=== PATIENT | female | born 1980 | race Two or more races ===

== ENCOUNTER → 2020-06-06 15:11 | Outpatient (BNVA) | payer MEDICAID, SELFPAY | PROVIDERS: PCP Nurse Practitioner Family; Referring Provider Nurse Practitioner Family; Visit Provider Nurse Practitioner | DX: Z76.89 Persons encountering health services in other specified circumstances (principal) ==

== ENCOUNTER → 2020-07-04 15:04 | Outpatient (BNVA) | payer MEDICAID, SELFPAY | PROVIDERS: PCP Nurse Practitioner Family; Referring Provider Nurse Practitioner Family; Visit Provider Nurse Practitioner | DX: Z76.89 Persons encountering health services in other specified circumstances (principal) ==

== ENCOUNTER 2020-09-12 21:25 | Emergency (ER) | payer MEDICAID, SELFPAY ==
--- NOTE | ~2020-09-12 | XR_ITS ---
EXAMINATION: XR CHEST CLINICAL INFORMATION: Chest pain COMPARISON: 07/08/2019 TECHNIQUE: Frontal view of the chest was obtained. FINDINGS: Patient is status post median sternotomy with a prosthetic valve in place. No other significant abnormality is noted involving the heart, lungs, mediastinum, bony thorax or soft tissues. XR/XR chest 1V IMPRESSION: No acute intrathoracic disease.
--- NOTE | 2020-09-12 21:40 | ECG_ITS ---
Test Reason : CHEST PAIN Blood Pressure : / mmHG Vent. Rate : 077 BPM Atrial Rate : 077 BPM P-R Int : 136 ms QRS Dur : 074 ms QT Int : 402 ms P-R-T Axes : 084 008 033 degrees QTc Int : 454 ms Normal sinus rhythm Septal infarct , age undetermined Abnormal ECG When compared with ECG of 08-JUL-2019 22:31, No significant change was found Referred By: Generic ED Physician Electronically Signed By:Jose Corral
[2020-09-12 22:22] VITALS: BP 115/71; PULSE 69; RESP 18; TEMP 36.9; O2SAT 99; BMI 33.3
--- NOTE | 2020-09-12 23:55 | ED.CHESTPAIN ---
HPI - Chest Pain General Chief Complaint: Chest Pain Stated Complaint: Chest pain/SOB Time Seen by Provider: 09/12/20 23:55 Source: patient Mode of arrival: ambulatory History of Present Illness HPI narrative: This is a 39-year-old female with history of mechanical valve replacement due to ?damage? and last INR on Coumadin was taken on Thursday and as per patient was 2.5. She is coming in with chest pain for 2 days that she describes as squeezing, nonradiating, worse at night when she tries to lay down to sleep and is not associated with fevers, chills, shortness of breath, dizziness, GI symptoms. Patient also describes lower extremity weakness without lower back pain but otherwise denies urinary pain/burning/frequency. Related Data Home Medications Medication Instructions Recorded Confirmed albuterol sulfate 90 mcg/actuation 1 inh INHALATION Q4H 06/06/20 06/06/20 breath activated powder inhaler,sensor aspirin 81 mg tablet,delayed 81 mg PO DAILY 06/06/20 06/06/20 release fluticasone propionate 220 1 puff INHALATION BID 06/06/20 06/06/20 mcg/actuation HFA aerosol inhaler loratadine 10 mg capsule 10 mg PO DAILY 06/06/20 06/06/20 tramadol 50 mg tablet 50 mg PO TID PRN 06/06/20 06/06/20 warfarin 5 mg tablet 5 mg PO DAILY 06/06/20 06/06/20 Previous Rx's Medication Instructions Recorded dicyclomine 10 mg capsule 10 mg PO QID #120 cap 06/06/20 methylcellulose (laxative) 500 mg 1,000 mg PO DAILY #60 tab 06/06/20 tablet omeprazole 40 mg capsule,delayed 40 mg PO BID 30 Days #60 cap 07/04/20 release linaclotide 290 mcg capsule 290 mcg PO QAM #30 cap 08/09/20 Allergies Allergy/AdvReac Type Severity Reaction Status Date / Time No Known Allergies Allergy Verified 09/12/20 22:22 [No Known Allergies*] Review of Systems Review of Systems: Pertinent positives and negatives as stated in HPI 10 point review of systems is otherwise negative. PMFSH Past Medical History Source: nursing notes reviewed Surgical History H/O heart surgery History of colonoscopy Mechanical heart valve present Family History Family History Father No problems noted. Mother No problems noted. Social History Social History Alcohol intake: never Smoking Status: Current every day smoker Tobacco Type: Cigarette Cigarettes Per Day: 4 Advance Directives: No Advance Directives Information Provided: No Physical Exam Vital Signs: Vital Signs: Last Vital Signs Temp 99.0 F 09/13/20 00:00 Pulse 66 09/13/20 00:00 Resp 16 09/13/20 00:00 BP 112/77 09/13/20 00:00 Pulse Ox 99 09/13/20 00:00 Body Mass Index 33.3 VITAL SIGNS: Reviewed. GENERAL: Well developed, well nourished, in no acute distress. HEAD: Normocephalic/atraumatic, EYES: PERRLA, EOMI NOSE: Nares patent bilateral OROPHARYNX: no oral lesions noted, posterior pharynx clear NECK: Supple, no adenopathy LUNGS: Normal breath sounds. No adventitious sounds or accessory muscle use. SpO2<99> CARDIOVASCULAR: Regular rate and rhythm, mechanical valve noted on auscultation, no JVD or lower extremity edema. ABDOMEN: Soft, non-tender, non-distended with bowel sounds. NEUROLOGIC: Alert and oriented x 4. Course Course Course Narrative: This is a 39-year-old female with history and clinical presentation most consistent with acid reflux/GERD, but due to patient's history will rule out cardiopulmonary, pancreatitis. Review of all investigations to include labs and chest x-ray without acute findings to better explain patient's presentation other than suspected exacerbation of underlying acid reflux. Patient was provided with a GI cocktail and on re-evaluation reports symptom improvement. She was discharged home in stable condition. MDM - Chest Pain Lab Data Result diagrams: 09/13/20 00:23 09/13/20 00:23 Labs: Lab Results 09/13/20 09/13/20 09/13/20 Range/Units 00:23 00:23 00:23 WBC 12.5 H (4.8-10.8) X10*3/uL RBC 4.35 (4.20-5.50) X10*6/uL Hgb 12.9 (12.0-16.0) g/dl Hct 38.6 (37-47) % MCV 88.7 (80-98) fL MCH 29.7 (27.0-33.0) pg MCHC 33.4 (31.0-35.0) g/dl RDW 13.1 (11.0-16.0) % Plt Count 223 (160-400) X10*3/uL MPV 11.2 (9.4-12.3) fL Immature Gran % (Auto) 0.2 (0.0-0.4) % Neut % (Auto) 61.6 (45-73) % Lymph % (Auto) 30.1 (20-40) % [place] % (Auto) 5.9 (2-11) % Eos % (Auto) 1.6 (0-4) % Baso % (Auto) 0.6 (0-2) % Lymph # (Auto) 3.8 (1.2-4.9) X10*3/uL [place] # (Auto) 0.7 (0.1-1.2) X10*3/uL Eos # (Auto) 0.2 (0.0-0.4) X10*3/uL Baso # (Auto) 0.1 (0.0-0.2) X10*3/uL Abs Immat Gran (auto) 0.02 (0.00-0.03) X10*3/uL Absolute Neuts (auto) 7.7 (2.0-8.3) X10*3/uL Absolute Nucleated RBC 0.000 (0.0-0.012) X10*3/uL Nucleated RBC % (auto) 0.0 (0.0-0.2) /100WBC PT 32.1 H (10.8-13.0) SEC INR 2.7 H (0.9-1.1) Hold Blue Top SEE NOTE Sodium 138 (135-145) mmol/L Potassium 3.9 (3.3-5.1) mmol/L Chloride 112 H (96-108) mmol/L Carbon Dioxide 20 L (22-29) mmol/L Anion Gap 10 L (12-20) BUN 12 (9-16) mg/dL Creatinine 0.79 (0.5-1.4) mg/dL Estim Creat Clear Calc 104.2 Estimated GFR > 60 Random Glucose 103 (60-115) mg/dL Calcium 8.9 (8.4-10.2) mg/dL Troponin I High Sens (<3.5-17.0) ng/L 09/13/20 Range/Units 00:23 WBC (4.8-10.8) X10*3/uL RBC (4.20-5.50) X10*6/uL Hgb (12.0-16.0) g/dl Hct (37-47) % MCV (80-98) fL MCH (27.0-33.0) pg MCHC (31.0-35.0) g/dl RDW (11.0-16.0) % Plt Count (160-400) X10*3/uL MPV (9.4-12.3) fL Immature Gran % (Auto) (0.0-0.4) % Neut % (Auto) (45-73) % Lymph % (Auto) (20-40) % [place] % (Auto) (2-11) % Eos % (Auto) (0-4) % Baso % (Auto) (0-2) % Lymph # (Auto) (1.2-4.9) X10*3/uL [place] # (Auto) (0.1-1.2) X10*3/uL Eos # (Auto) (0.0-0.4) X10*3/uL Baso # (Auto) (0.0-0.2) X10*3/uL Abs Immat Gran (auto) (0.00-0.03) X10*3/uL Absolute Neuts (auto) (2.0-8.3) X10*3/uL Absolute Nucleated RBC (0.0-0.012) X10*3/uL Nucleated RBC % (auto) (0.0-0.2) /100WBC PT (10.8-13.0) SEC INR (0.9-1.1) Hold Blue Top Sodium (135-145) mmol/L Potassium (3.3-5.1) mmol/L Chloride (96-108) mmol/L Carbon Dioxide (22-29) mmol/L Anion Gap (12-20) BUN (9-16) mg/dL Creatinine (0.5-1.4) mg/dL Estim Creat Clear Calc Estimated GFR Random Glucose (60-115) mg/dL Calcium (8.4-10.2) mg/dL Troponin I High Sens < 3.5 (<3.5-17.0) ng/L ECG Data ECG #1: Attestation: I personally reviewed and interpreted this ECG as follows: Prior ECG tracings: available for review (07/08/2019 no acute changes on comparison) Interpretation: Normal sinus rhythm, HR-77, no evidence of acute ischemia, AL/QRS/QTC are within normal limits. Discharge Plan Discharge Clinical Impression: Atypical chest pain GERD (gastroesophageal reflux disease) Qualifiers: Esophagitis presence: without esophagitis Qualified Code(s): K21.9 - Gastro-esophageal reflux disease without esophagitis Patient Disposition: Home, Self-Care Instructions: Chest Pain (ED), Diet for Stomach Ulcers and Gastritis (ED), Gastroesophageal Reflux Disease (ED) Additional Instructions: 1. Please resume all home medications as prescribed. 2. Please follow recommendations for GERD, especially timing after last meal and laying down for bed. 3. 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 Do not hesitate to return to the emergency department should you experience any acute worsening of your symptoms. Prescriptions: No Action linaclotide [Linzess] 290 mcg capsule 290 mcg PO QAM Qty: 30 RF: 0 loratadine [Claritin Liqui-Gel] 10 mg capsule 10 mg PO DAILY RF: 0 Flovent HFA 220 mcg/actuation HFA aerosol inhaler 1 puff inhalation BID RF: 0 Proair Digihaler 90 mcg/actuation aero powdr breath act w/sensor 1 inh inhalation Q4H RF: 0 tramadol 50 mg tablet 50 mg PO TID PRNRF: 0 warfarin 5 mg tablet 5 mg PO DAILY RF: 0 aspirin [Adult Aspirin Regimen] 81 mg tablet,delayed release (DR/EC) 81 mg PO DAILY RF: 0 Citrucel 500 mg tablet 1,000 mg PO DAILY Qty: 60 RF: 3 dicyclomine 10 mg capsule 10 mg PO QID Qty: 120 RF: 3 omeprazole 40 mg capsule,delayed release(DR/EC) 40 mg PO BID 30 Days Qty: 60 RF: 3 Referrals: [facility] [Outside] - 2 days (Re-evaluation for atypical chest pain and suspect poorly controlled GERD)
[2020-09-13] VITALS: BP 112/77; PULSE 66; RESP 16; TEMP 37.2; O2SAT 99
[2020-09-13 00:29] LABS: MANUAL DIFF FLAG NO
[2020-09-13 00:30] LABS: Basophils Absolute Auto 0.1 X10*3/uL (0.0-0.2); Basophils Percent Auto 0.6 % (0-2); Eosinophils Absolute Auto 0.2 X10*3/uL (0.0-0.4); Eosinophils Percent Auto 1.6 % (0-4); Hematocrit 38.6 % (37-47); Hemoglobin 12.9 g/dl (12.0-16.0); Imm Gran Abs Auto 0.02 X10*3/uL (0.00-0.03); Imm Gran Pct Auto 0.2 % (0.0-0.4); Lymphocytes Absolute Auto 3.8 X10*3/uL (1.2-4.9); Lymphocytes Percent Auto 30.1 % (20-40); Mean Corpuscular HGB Conc 33.4 g/dl (31.0-35.0); Mean Corpuscular Hemoglobin 29.7 pg (27.0-33.0); Mean Corpuscular Volume 88.7 fL (80-98); Mean Platelet Volume 11.2 fL (9.4-12.3); Monocytes Absolute Auto 0.7 X10*3/uL (0.1-1.2); Monocytes Percent Auto 5.9 % (2-11); Neutrophils Absolute Auto 7.7 X10*3/uL (2.0-8.3); Neutrophils Percent Auto 61.6 % (45-73); Platelet Count 223 X10*3/uL (160-400); Red Blood Count 4.35 X10*6/uL (4.20-5.50); Red Cell Distribution Width 13.1 % (11.0-16.0); White Blood Count 12.5 X10*3/uL (4.8-10.8)
[2020-09-13 00:36] LABS: INTERNATIONAL NORM RATIO 2.7 (0.9-1.1); Prothrombin Time 32.1 SEC (10.8-13.0)
[2020-09-13 00:55] LABS: Anion Gap 10 (12-20); Blood Urea Nitrogen 12 mg/dL (9-16); Calcium 8.9 mg/dL (8.4-10.2); Carbon Dioxide 20 mmol/L (22-29); Chloride 112 mmol/L (96-108); Creatinine Clr Calc Pharmacy 104.2; Estimated Glomerular Filt Rate > 60; Glucose Random 103 mg/dL (60-115); Potassium 3.9 mmol/L (3.3-5.1); Sodium 138 mmol/L (135-145)
[2020-09-13 01:03] LABS: Troponin-I High Sensitivity < 3.5 ng/L (<3.5-17.0)
[2020-09-13] MEDS: Lidocaine HCl Viscous 2 % 15 ML SOLUTION 10 ML MUCOUS MEM (02:05)
[2020-09-13] MEDS: Magnesium Hydrox/Alum Hydrox 30 ML ORAL.SUSP PO (02:06)
== END 2020-09-13 02:14 | disposition home or self-care (01) ==
PROVIDERS: Emergency Provider Student in an Organized Health Care Education/Training Program
DX: R07.89 Other chest pain (principal); K21.9 Gastro-esophageal reflux disease without esophagitis; Z79.01 Long term (current) use of anticoagulants; Z95.2 Presence of prosthetic heart valve; Z79.82 Long term (current) use of aspirin
CPT/HCPCS: 36415; 71045; 80048; 84484; 85025; 85610; 93005; 99283

== ENCOUNTER 2020-10-03 13:10 | Outpatient (REF) | payer MEDICAID, SELFPAY ==
--- NOTE | ~2020-10-03 | MM_ITS ---
EXAMINATION: MM DIAGNOSTIC DIGITAL BREAST TOMOSYNTHESIS, BILATERAL US TARGETED BREAST, BILATERAL CLINICAL INFORMATION: Bilateral breast pain. The lifetime risk of breast cancer based on the Tyrer-Cuzick Model is 8.1%. COMPARISON: Mammography: None. TECHNIQUE: Digital breast tomosynthesis is performed in both the craniocaudal and mediolateral oblique views along with computer-aided detection (CAD). Synthesized 2D images are generated from the tomosynthesis. Bilateral targeted breast ultrasound. FINDINGS: The breasts are heterogeneously dense, which may obscure small masses (ACR BI-RADS breast composition Category c). About the lateral aspect of the right breast, approximately 6 cm from the nipple, there is a circumscribed 3 mm density present. No other dominant mass or suspicious grouping of microcalcifications identified. No abnormal dominant mass or suspicious grouping of microcalcifications is seen within the left breast. TARGETED LEFT BREAST ULTRASOUND: In the region of the patient's pain at the 9 o'clock position, there is a complex cyst versus lymph node with small amount of blood flow in a hyperechoic region centrally which may represent hilum. Lesion is wider than it is tall. There is increased through sound transmission and no distal sound shadowing. The lesion measures approximately 1.0 x 0.3 x 1.0 cm in size. Targeted right breast ultrasound demonstrated a 4 x 3 x 4 mm simple-appearing cyst, 9 o'clock position, 8 cm from the nipple. Results are provided to the patient at time of visit by the technologist. MM/MM tomosynthesis diagnostic BI IMPRESSION: 1. No specific mammographic or ultrasound findings to suggest malignancy. 2. Either a complex cyst or intramammary lymph node in the region of pain at 9 o'clock position, 6 cm from the nipple. ASSESSMENT: BI-RADS 3: Probably Benign. RECOMMENDATION: Diagnostic ultrasound in 6 months. This patient's information was entered into a reminder system with a target due date for their next mammogram.
--- NOTE | ~2020-10-03 | US_ITS ---
EXAMINATION: US DIAGNOSTIC ULTRASOUND BREAST, RIGHT CLINICAL INFORMATION: Pain. COMPARISON: Mammography of same day. TECHNIQUE: Ultrasound of the breast is performed with real-time solomon scale imaging and color Doppler. FINDINGS: Targeted left breast ultrasound in region of patient's pain at the 9:00 position there is a complex cyst versus lymph node with small amount of blood flow in a hyperechoic region centrally which may represent hilum Lesion is wider than it is tall. There is increased through sound transmission and no distal sound shadowing. The lesion measures approximately 1.0 x 0.3 x 1.0 cm in size. Targeted right breast ultrasound demonstrated a 4 x 3 x 4 mm simple appearing cyst 9:00 position 8 cm from nipple. Results are provided to the patient at time of visit by the technologist. US/US breast RT limited IMPRESSION: No specific mammographic or ultrasound findings to suggest malignancy. Either complex cyst or intramammary lymph node in the region of pain 9:00 position 6 cm from the nipple. ASSESSMENT: BI-RADS 3: Probably Benign RECOMMENDATION: Diagnostic ultrasound in 6 months.
--- NOTE | ~2020-10-03 | US_ITS ---
EXAMINATION: US DIAGNOSTIC ULTRASOUND BREAST, LEFT CLINICAL INFORMATION: Left breast pain. COMPARISON: Mammography of same day. TECHNIQUE: Ultrasound of the breast is performed with real-time solomon scale imaging and color Doppler. FINDINGS: Targeted left breast ultrasound in region of patient's pain at the 9:00 position there is a complex cyst versus lymph node with small amount of blood flow in a hyperechoic region centrally which may represent hilum Lesion is wider than it is tall. There is increased through sound transmission and no distal sound shadowing. The lesion measures approximately 1.0 x 0.3 x 1.0 cm in size. Targeted right breast ultrasound demonstrated a 4 x 3 x 4 mm simple appearing cyst 9:00 position 8 cm from nipple. Results are provided to the patient at time of visit by the technologist. US/US breast LT limited IMPRESSION: No specific mammographic or ultrasound findings to suggest malignancy. Either complex cyst or intramammary lymph node in the region of pain 9:00 position 6 cm from the nipple. ASSESSMENT: BI-RADS 3: Probably Benign RECOMMENDATION: Diagnostic ultrasound in 6 months.
== END 2020-10-03 13:11 | disposition home or self-care (01) ==
LOC: HO.MAMMO 13:10
PROVIDERS: Visit Provider Nurse Practitioner Family
DX: N64.4 Mastodynia (principal)
CPT/HCPCS: 76642; 77062; 77066

== ENCOUNTER → 2020-10-18 14:21 | Outpatient (BNVA) | payer MEDICAID, SELFPAY | PROVIDERS: Visit Provider Nurse Practitioner ==

== ENCOUNTER → 2020-11-08 10:59 | Outpatient (BNVA) | payer MEDICAID, SELFPAY | PROVIDERS: Visit Provider Nurse Practitioner ==

== ENCOUNTER 2021-04-05 08:58 | Outpatient (REF) | payer MEDICAID, SELFPAY ==
--- NOTE | ~2021-04-05 | US_ITS ---
EXAMINATION: US DIAGNOSTIC ULTRASOUND BREAST, RIGHT CLINICAL INFORMATION: Short interval six-month follow-up probable benign clustered microcyst medial left breast. TC score 8%. COMPARISON: Mammography 10/03/2020, ultrasound left breast 10/03/2020. TECHNIQUE: Ultrasound left breast is targeted to the inner quadrant. Grayscale imaging and color Doppler are performed without and with harmonics. FINDINGS: The small complicated cyst/clustered microcyst 9:00 position 6 cm from nipple is slightly decreased in size. Prior measurement is 10 x 10 x 3 mm and current measurement is 9 x 7 x 3 mm. Margins are circumscribed. There is increased through-transmission of sound. Linear stranding central epicenter is decreased. There is no peripheral or internal color flow. Results are discussed with the patient at time of visit. US/US breast LT limited IMPRESSION: Benign complicated cyst/clustered microcyst slightly decreased. No color flow. ASSESSMENT: BI-RADS 2: Benign RECOMMENDATION: Routine annual mammography screening. This patient's information was entered into a reminder system with a target due date for their next mammogram.
== END 2021-04-05 08:59 | disposition home or self-care (01) ==
LOC: HO.MAMMO 08:58
PROVIDERS: Visit Provider Nurse Practitioner Family
DX: N60.02 Solitary cyst of left breast (principal)
CPT/HCPCS: 76642

== ENCOUNTER 2021-10-04 09:13 | Outpatient (REF) | payer MEDICAID, SELFPAY ==
--- NOTE | ~2021-10-04 | MM_ITS ---
EXAMINATION: MM SCREENING DIGITAL BREAST TOMOSYNTHESIS, BILATERAL CLINICAL INFORMATION: Screening. Asymptomatic. The lifetime risk of breast cancer based on the Tyrer-Cuzick Model is 7%. COMPARISON: Mammography: 10/03/2020 (baseline); ultrasound left breast 04/05/2021, ultrasound bilateral breasts 10/03/2020. TECHNIQUE: Digital breast tomosynthesis is performed in both the craniocaudal and mediolateral oblique views along with computer-aided detection (CAD). Synthesized 2D images are generated from the tomosynthesis. FINDINGS: There are scattered areas of fibroglandular density (ACR BI-RADS breast composition Category b). There are no significant masses, abnormal calcifications, or other abnormalities. Breast tissue composition borders on heterogeneously dense. Parenchymal pattern is similar to baseline exam. MM/MM tomosynthesis screening BI IMPRESSION: No mammographic evidence of malignancy. ASSESSMENT: BI-RADS 1: Negative RECOMMENDATION: Routine annual mammography screening. This patient's information was entered into a reminder system with a target due date for their next mammogram.
== END 2021-10-04 09:14 | disposition home or self-care (01) ==
LOC: HO.MAMMO 09:13
PROVIDERS: Visit Provider Nurse Practitioner Family
DX: Z12.31 Encounter for screening mammogram for malignant neoplasm of breast (principal)
CPT/HCPCS: 77063; 77067

== ENCOUNTER 2021-12-18 09:32 | Outpatient (REF) | payer MEDICAID, SELFPAY ==
--- NOTE | 2021-12-18 09:37 | EMG_ITS ---
HISTORY OF PRESENT ILLNESS: This is a 41-year-old woman who had a stroke with left-sided hemiplegia in 2019 and has recovered fairly well and now comes in with left lower extremity cramping and numbness at times. PHYSICAL EXAMINATION: She is alert, oriented with normal intellectual functions. Cranial nerves II through XII are normal. Muscle tone and strength are normal in all 4 extremities. Slight left-sided hyperreflexia. IMPRESSION: Stroke, rule out peripheral neuropathy. Nerve conduction EMG study: Normal electrodiagnostic study of the left lower extremity with no evidence of nerve entrapment or generalized peripheral neuropathy. Normal EMG of the left L4-S1 innervated muscles. MD GERA Donohue/TOSIN / [id number]
== END 2021-12-18 09:33 | disposition home or self-care (01) ==
LOC: HO.NEURO 09:32
PROVIDERS: PCP Nurse Practitioner Primary Care; Visit Provider Nurse Practitioner Primary Care
DX: R20.0 Anesthesia of skin (principal)
CPT/HCPCS: 95885; 95909

== ENCOUNTER → 2022-03-07 15:54 | Outpatient (BNVA) | payer MEDICAID, SELFPAY | PROVIDERS: PCP Nurse Practitioner Primary Care; Visit Provider Nurse Practitioner | DX: K59.04 Chronic idiopathic constipation (principal); R14.0 Abdominal distension (gaseous); K21.9 Gastro-esophageal reflux disease without esophagitis; K58.2 Mixed irritable bowel syndrome; Z79.899 Other long term (current) drug therapy | CPT/HCPCS: 99212 ==

== ENCOUNTER → 2022-03-31 12:56 | Outpatient (BNVA) | payer MEDICAID, SELFPAY | PROVIDERS: PCP Nurse Practitioner Primary Care; Visit Provider Advanced Practice Midwife | DX: R14.0 Abdominal distension (gaseous) (principal); Z87.42 Personal history of other diseases of the female genital tract; Z95.2 Presence of prosthetic heart valve | CPT/HCPCS: 99202 ==

== ENCOUNTER 2022-04-15 12:50 | Outpatient (REF) | payer MEDICAID, SELFPAY ==
[2022-04-22 11:42] LABS: HPV mRNA E6/E7 rflx Not Detected (Not Detected)
== END 2022-04-15 12:51 | disposition home or self-care (01) ==
LOC: HO.LNP 12:50
PROVIDERS: Visit Provider Obstetrics & Gynecology
DX: N93.9 Abnormal uterine and vaginal bleeding, unspecified (principal); N83.8 Other noninflammatory disorders of ovary, fallopian tube and broad ligament
CPT/HCPCS: 84443; 84702; 85027; 86304; 87491; 87591; 87624; 88142; 99212

== ENCOUNTER 2022-04-15 13:00 | Outpatient (REF) | payer MEDICAID, SELFPAY ==
[2022-04-15 14:34] LABS: Hematocrit 39.1 % (37.0-47.0); Hemoglobin 13.2 g/dl (12.0-16.0); Mean Corpuscular HGB Conc 33.8 g/dl (31.0-35.0); Mean Corpuscular Hemoglobin 29.6 pg (27.0-33.0); Mean Corpuscular Volume 87.7 fL (80.0-98.0); Mean Platelet Volume 12.1 fL (9.4-12.3); Platelet Count 202 X10*3/uL (160-400); Red Blood Count 4.46 X10*6/uL (4.20-5.50); Red Cell Distribution Width 13.5 % (11.0-16.0)
[2022-04-15 15:12] LABS: HCG Quantitative < 2 mIU/mL; TSH reflex Free T4 0.99 uIU/mL (0.32-4.0)
[2022-04-15 18:17] LABS: CT PCR NOT DETECTED (Not Detect.); NG PCR NOT DETECTED (Not Detect.)
[2022-04-18 10:27] LABS: CA-125 6 U/mL (<35)
== END 2022-04-15 13:01 | disposition home or self-care (01) ==
LOC: HO.LAB 13:00
PROVIDERS: PCP Nurse Practitioner Primary Care; Visit Provider Obstetrics & Gynecology
DX: N83.8 Other noninflammatory disorders of ovary, fallopian tube and broad ligament (principal); N93.9 Abnormal uterine and vaginal bleeding, unspecified
CPT/HCPCS: 84443; 84702; 85027; 86304; 87491; 87591

== ENCOUNTER → 2022-04-23 16:05 | Outpatient (BNVA) | payer MEDICAID, SELFPAY | PROVIDERS: PCP Nurse Practitioner Primary Care; Visit Provider Nurse Practitioner | DX: K59.04 Chronic idiopathic constipation (principal); K21.9 Gastro-esophageal reflux disease without esophagitis; R14.0 Abdominal distension (gaseous); Z90.49 Acquired absence of other specified parts of digestive tract; Z95.2 Presence of prosthetic heart valve | CPT/HCPCS: 99212 ==

== ENCOUNTER 2022-06-27 13:25 | Outpatient (REF) | payer MEDICAID, SELFPAY | END 2022-06-27 13:26 | disposition home or self-care (01) | LOC: HO.US 13:25 | PROVIDERS: Visit Provider Obstetrics & Gynecology | DX: N93.9 Abnormal uterine and vaginal bleeding, unspecified (principal) | CPT/HCPCS: 76830; 76856 ==

== ENCOUNTER → 2022-10-02 15:47 | Outpatient (BNVA) | payer MEDICAID, SELFPAY | PROVIDERS: PCP Nurse Practitioner Primary Care; Visit Provider Nurse Practitioner | DX: K29.60 Other gastritis without bleeding (principal); K59.04 Chronic idiopathic constipation; K21.9 Gastro-esophageal reflux disease without esophagitis; R14.0 Abdominal distension (gaseous) | CPT/HCPCS: 99212 ==

== ENCOUNTER → 2022-10-29 15:32 | Outpatient (BNVA) | payer MEDICAID, SELFPAY | PROVIDERS: PCP Nurse Practitioner Primary Care; Visit Provider Obstetrics & Gynecology | DX: N83.299 Other ovarian cyst, unspecified side (principal) | CPT/HCPCS: 81025; 99212 ==

== ENCOUNTER 2022-11-18 15:57 | Outpatient (REF) | payer MEDICAID, SELFPAY ==
--- NOTE | ~2022-11-18 | US_ITS ---
EXAMINATION: US PELVIS CLINICAL INFORMATION: Ovarian cyst; the last menstrual period was 2 days prior. COMPARISON: Pelvic ultrasound dated 06/27/2022. TECHNIQUE: Ultrasound of the pelvis is performed using transabdominal technique. The patient declined transvaginal imaging. FINDINGS: Uterus: The uterus is anteverted and retroflexed. The uterus measures 8.6 x 4.5 x 3.6 cm. The double wall endometrial thickness is 0.4 mm. The uterus is smooth in contour and has normal myometrial echogenicity. No visible fibroid. Adnexa: Both ovaries are visualized. There is normal color flow to the adnexa. There is no ovarian torsion. There is moderate bilateral adnexal free fluid. Right ovary measures 2.6 x 1 0.1, 0.2 cm, volume 3.5 mL. A small simple follicle is incidentally noted. Left ovary measures 2.9 x 2.0 x 2.6 cm, volume 7.8 mL. A small simple follicle is incidentally noted. US/US pelvic complete IMPRESSION: There is moderate bilateral adnexal free fluid. The examination is otherwise unremarkable.
== END 2022-11-18 15:58 | disposition home or self-care (01) ==
LOC: HO.US 15:57
PROVIDERS: PCP Nurse Practitioner Primary Care; Visit Provider Obstetrics & Gynecology
DX: N83.299 Other ovarian cyst, unspecified side (principal)
CPT/HCPCS: 76856

== ENCOUNTER 2023-04-16 09:09 | Emergency (ER) | payer MEDICAID, SELFPAY ==
--- NOTE | ~2023-04-16 | XR_ITS ---
EXAMINATION: XR CHEST CLINICAL INFORMATION: Chest pain COMPARISON: 09/13/2020 TECHNIQUE: 2 views of the chest were obtained. FINDINGS: Lungs are well-inflated and clear. Trachea is midline in position. No interstitial disease, consolidation or mass. No pleural effusion or pneumothorax. Cardiac silhouette and pulmonary vessels are normal in size. The mediastinum and celina have normal contour. Aortic valve annuloplasty. Sternotomy wires are intact. The visualized bones and upper abdomen are unremarkable. XR/XR chest 2V IMPRESSION: No acute cardiopulmonary abnormality.
--- NOTE | 2023-04-16 09:13 | ECG_ITS ---
Test Reason : CP Blood Pressure : / mmHG Vent. Rate : 059 BPM Atrial Rate : 059 BPM P-R Int : 154 ms QRS Dur : 080 ms QT Int : 446 ms P-R-T Axes : 047 046 034 degrees QTc Int : 441 ms Sinus bradycardia with sinus arrhythmia Septal infarct (cited on or before 12-SEP-2020) Abnormal ECG When compared with ECG of 12-SEP-2020 21:33, No significant change was found Referred By: Generic ED Physician Electronically Signed By:SANNA BROTHERS MD
[2023-04-16 09:18] VITALS: BP 127/89; PULSE 60; O2SAT 98
[2023-04-16 09:26] LABS: MANUAL DIFF FLAG NO
[2023-04-16 09:30] LABS: Basophils Absolute Auto 0.1 X10*3/uL (0.0-0.2); Eosinophils Absolute Auto 0.2 X10*3/uL (0.0-0.4); Hematocrit 39.1 % (37.0-47.0); Hemoglobin 13.3 g/dl (12.0-16.0); Imm Gran Abs Auto 0.03 X10*3/uL (0.00-0.03); Imm Gran Pct Auto 0.3 % (0.0-0.4); Lymphocytes Absolute Auto 2.5 X10*3/uL (1.2-4.9); Lymphocytes Percent Auto 27.2 % (20-40); Mean Corpuscular Hemoglobin 30.1 pg (27.0-33.0); Mean Corpuscular Volume 88.5 fL (80.0-98.0); Mean Platelet Volume 11.3 fL (9.4-12.3); Monocytes Absolute Auto 0.6 X10*3/uL (0.1-1.2); Monocytes Percent Auto 6.3 % (2-11); Neutrophils Absolute Auto 5.8 x10*3/uL (2.0-8.3); Neutrophils Percent Auto 63.2 % (45-73); Platelet Count 195 X10*3/uL (160-400); Red Blood Count 4.42 X10*6/uL (4.20-5.50); Red Cell Distribution Width 13.6 % (11.0-16.0); White Blood Count 9.2 X10*3/uL (4.8-10.8)
[2023-04-16 09:37] LABS: Appearance Urine Clear; Color Urine Yellow; Glucose Urine UA Negative (Negative); Leukocyte Esterase Urine Negative (Negative); Nitrite Urine Negative (Negative); PH 5.5 (5.0-9.0); Specific Gravity - Urine >= 1.030 (1.005-1.025); Urine Blood Negative (Negative); Urine Ketones Negative (Negative); Urine Protein Negative (Neg-Trace)
[2023-04-16 09:44] VITALS: BP 145/76; PULSE 54; RESP 19; TEMP 36.9; O2SAT 98; BMI 29.9
[2023-04-16 09:47] LABS: Anion Gap 11 (12-20); Blood Urea Nitrogen 11 mg/dL (9-16); Calcium 9.2 mg/dL (8.4-10.2); Carbon Dioxide 22 mmol/L (22-29); Chloride 112 mmol/L (96-108); Estimated Glomerular Filt Rate > 60; Glucose Random 101 mg/dL (60-115); Sodium 141 mmol/L (135-145)
[2023-04-16 09:59] LABS: UPreg QC Valid YES
[2023-04-16 10:01] LABS: Urine Pregnancy NEGATIVE (NEGATIVE)
[2023-04-16 10:11] LABS: Troponin-I High Sensitivity < 2.7 ng/L (<3.5-17.0)
[2023-04-16 10:34] LABS: Influenza A PCR NEGATIVE (Negative); Influenza B PCR NEGATIVE (Negative); Resp Syncy Virus RNA Qual PCR NEGATIVE (Negative); SARS COV2 PCR INHOUSE NEGATIVE (Negative)
--- NOTE | 2023-04-16 11:21 | ED.GENADULT ---
HPI - General Adult General Chief complaint: Upper Respiratory Symptoms Stated complaint: INTERMIT CP,L FLANK PAIN X3 DAYS FROM MD OFFICE Time Seen by Provider: 04/16/23 10:49 Source: patient and residence manager Mode of arrival: ambulatory Limitations: language barrier History of Present Illness HPI narrative: Patient is a 42-year-old Swedish-speaking female with history of mechanical heart valve, GERD presenting to the emergency department with complaint of productive cough for the past month as well as left lateral rib pain. Denies fevers. Denies ear pain, sore throat, nasal congestion. States has taken COVID test which were negative. Saw PCP this morning who referred patient to the emergency department. Has used her inhaler and nebulizer with little relief. MD complaint: Cough Onset (ago): week(s) Location: chest Radiation: non-radiation Severity: moderate Quality: stabbing Pain Consistency: intermittent Relieving factors: rest Exacerbating factors: other (coughing) Treatments prior to arrival: other (inhaler/nebulizer) Related Data Home Medications Medication Instructions Recorded Confirmed albuterol sulfate 90 mcg/actuation 1 inh inhalation Q4H 06/06/20 03/31/22 breath activated powder inhaler,sensor (Proair Digihaler) aspirin 81 mg tablet,delayed 81 mg PO DAILY 06/06/20 03/31/22 release (Adult Aspirin Regimen) fluticasone propionate 220 1 puff inhalation BID 06/06/20 03/31/22 mcg/actuation HFA aerosol inhaler (Flovent HFA) tramadol 50 mg tablet 50 mg PO TID PRN 06/06/20 03/31/22 warfarin 5 mg tablet 5 mg PO DAILY 06/06/20 03/31/22 cetirizine 10 mg tablet 10 mg PO DAILY PRN 10/18/20 03/31/22 albuterol sulfate 2.5 mg/3 mL mg inhalation Q6H PRN 03/07/22 03/31/22 (0.083 %) solution for nebulization folic acid-vit B6-vit B12 2.2 1 tab PO DAILY 03/07/22 03/31/22 mg-25 mg-1 mg tablet (FaBB) melatonin 3 mg tablet 3 mg PO BEDTIME 03/07/22 03/31/22 nicotine 14 mg/24 hr daily 1 patch topical DAILY 03/07/22 03/31/22 transdermal patch topiramate 25 mg tablet 0 mg PO 03/07/22 03/31/22 zolpidem 10 mg tablet 10 mg PO BEDTIME PRN 03/07/22 03/31/22 albuterol sulfate 90 mcg/actuation 2 puff inhalation Q4-6H PRN 04/23/22 aerosol inhaler (Ventolin HFA) nabumetone 500 mg tablet 500 mg PO BID 04/23/22 cyclobenzaprine 5 mg tablet 5 mg PO BEDTIME 10/02/22 Previous Rx's Medication Instructions Recorded omeprazole 40 mg capsule,delayed 40 mg PO BID 30 days #60 caps 12/24/21 release dicyclomine 10 mg capsule 10 mg PO QID #120 caps 03/07/22 linaclotide 290 mcg capsule 290 mcg PO QAM #30 caps 03/07/22 (Linzess) magnesium oxide 400 mg (241.3 mg 400 mg PO BID #60 tabs 03/07/22 magnesium) tablet methylcellulose (laxative) 500 mg 1,000 mg (2 x 500 mg) PO DAILY #60 03/07/22 tablet (Fiber Therapy tabs (methylcellulose)) simethicone 180 mg capsule 180 mg PO QID 30 days #120 caps 03/07/22 linaclotide 145 mcg capsule 145 mcg PO QAM #30 caps 10/02/22 (Linzess) benzonatate 100 mg capsule 100 mg PO TID PRN cough #20 caps 04/16/23 doxycycline hyclate 100 mg capsule 100 mg PO BID #10 caps 04/16/23 Allergies Allergy/AdvReac Type Severity Reaction Status Date / Time No Known Allergies Allergy Verified 04/16/23 09:44 [No Known Allergies*] Review of Systems Review of Systems: As per HPI. Yes all other systems are reviewed and are negative Constitutional: Constitutional: Reports as per HPI [facility] Past Medical History Medical History Depression Irritable bowel syndrome with both constipation and diarrhea Migraine Surgical History H/O heart surgery History of colonoscopy Hx of cholecystectomy Mechanical heart valve present Family History Family History Father No problems noted. Mother No problems noted. Social History Social History Household Members: Children Alcohol intake: never Cigarettes Per Day: 4 Advance Directives: No Current occupational status: unemployed Current occupation: applying for disability Physical Exam ED Vital Signs: Vital Signs - 24 hr 04/16/23 09:44 Temperature 98.4 F Pulse Rate 54 Respiratory Rate 19 Blood Pressure 145/76 H Pulse Oximetry 98 Oxygen Delivery Method Room Air BMI result Body Mass Index 29.9 Vital signs have been reviewed and appear to be correct. Blood pressure mildly elevated. Heart rate normal. Respiratory rate normal. Temperature normal. Oxygen saturation normal. Const General: cooperative, healthy appearing and no acute distress Orientation/consciousness: oriented to person, oriented to place, oriented to time and patient oriented x3 Limitations: no limitations HENMT Head: Yes normocephalic and Yes atraumatic Ears: external ears normal General nose exam: Normal external nose present Face and sinus: Yes face symmetric Mouth: oropharynx normal and moist mucous membranes Throat: Yes uvula midline Eyes Pupils: Equal, round and reactive pupils present Neck Neck: Yes normal visual inspection and Yes supple Resp Effort & Inspection: normal respiratory effort and able to speak in complete sentences Auscultation: clear to auscultation bilaterally and wheezes scattered wheezes (mild, inspiratory) Cardio Rate: regular rate Rhythm: regular rhythm Heart sounds: S1 normal heart sound present and S2 normal heart sound present GI Palpation (GI): Soft to palpation and nontender Auscultation: normoactive bowel sounds General: Yes no CVA tenderness Back/Spine/Pelvis Back: no CVA tenderness Skin General skin exam: elasticity normal and turgor normal Neuro General: oriented to person, oriented to place, oriented to time, patient oriented x3, moves all extremities, no focal motor deficits and CN's II-XI intact bilaterally Cranial nerves: Yes Equal, round and reactive pupils present Cognition (Neuro): normal cognition Extrem General: Yes full ROM, Yes no pedal edema and Yes no calf tenderness Psych Mental Status: mental status grossly normal Affect: normal affect Thought process: Normal thought process present Medical Decision Making Medical Decision Making MDM Narrative: Patient is a 42-year-old female with history of mechanical heart valve, GERD presenting to the emergency department with complaint of productive cough for the past month as well as left lateral rib pain. On exam patient is awake, A+Ox3, VS WNL, afebrile, normal neurological exam without focal deficits, physical exam findings as above. Given reported symptoms and physical exam findings, initial differential includes bronchitis, pneumonia, rib fracture. Labs notable for no leukocytosis, negative troponin. No evidence of infection on UA. Swabs for flu, RSV, COVID all negative. EKG shows sinus bradycardia with sinus arrhythmia, rate 59 beats per minute, normal [place] interval, no evidence of STEMI. HEART score of 1. X-ray chest notable for no acute abnormalities. My interpretation is in agreement with the radiologist's interpretation. Will treat patient for bronchitis at this time with azithromycin, benzonatate. Patient states she has adequate inhaler/albuterol for nebulizer at home. Instructed patient to follow-up with primary care provider. Return precautions discussed at bedside. Patient verbalized understanding of and agreement with plan. Differential Diagnosis Differential Diagnoses: The differential diagnosis associated with the presentation includes As per [facility]. Admission/Observation Consideration of admission/observation: Escalation of care including admission/observation considered Lab Data [facility] Lab Attestation statement: I reviewed the patient's lab results. As per MDM. 04/16/23 09:23 04/16/23 09:23 Labs: Lab Results 04/16/23 04/16/23 04/16/23 Range/Units 09:23 09:28 09:53 WBC 9.2 (4.8-10.8) X10*3/uL RBC 4.42 (4.20-5.50) X10*6/uL Hgb 13.3 (12.0-16.0) g/dl Hct 39.1 (37.0-47.0) % MCV 88.5 (80.0-98.0) fL MCH 30.1 (27.0-33.0) pg MCHC 34.0 (31.0-35.0) g/dl RDW 13.6 (11.0-16.0) % Plt Count 195 (160-400) X10*3/uL MPV 11.3 (9.4-12.3) fL Immature Gran % (Auto) 0.3 (0.0-0.4) % Neut % (Auto) 63.2 (45-73) % Lymph % (Auto) 27.2 (20-40) % [place] % (Auto) 6.3 (2-11) % Eos % (Auto) 2.0 (0-4) % Baso % (Auto) 1.0 (0-2) % Lymph # (Auto) 2.5 (1.2-4.9) X10*3/uL [place] # (Auto) 0.6 (0.1-1.2) X10*3/uL Eos # (Auto) 0.2 (0.0-0.4) X10*3/uL Baso # (Auto) 0.1 (0.0-0.2) X10*3/uL Abs Immat Gran (auto) 0.03 (0.00-0.03) X10*3/uL Absolute Neuts (auto) 5.8 (2.0-8.3) x10*3/uL Absolute Nucleated RBC 0.000 (0.0-0.012) X10*3/uL Nucleated RBC % (auto) 0.0 (0.0-0.2) /100WBC Sodium 141 (135-145) mmol/L Potassium 4.0 (3.3-5.1) mmol/L Chloride 112 H (96-108) mmol/L Carbon Dioxide 22 (22-29) mmol/L Anion Gap 11 L (12-20) BUN 11 (9-16) mg/dL Creatinine 0.70 (0.5-1.4) mg/dL Estim Creat Clear Calc TNP Estimated GFR > 60 Random Glucose 101 (60-115) mg/dL Calcium 9.2 (8.4-10.2) mg/dL Troponin I High Sens < 2.7 (<3.5-17.0) ng/L Urine Color Yellow Urine Appearance Clear Urine pH 5.5 (5.0-9.0) Ur Specific [place] >= 1.030 H (1.005-1.025) Urine Protein Negative (Neg-Trace) mg/dL Urine Glucose (UA) Negative (Negative) mg/dL Urine Ketones Negative (Negative) mg/dL Urine Blood Negative (Negative) Urine Nitrite Negative (Negative) Ur Leukocyte Esterase Negative (Negative) Urine Test NEGATIVE (NEGATIVE) Influenza Type A (PCR) NEGATIVE (Negative) Influenza Type B (PCR) NEGATIVE (Negative) RSV RNA Qual (PCR) NEGATIVE (Negative) SARS-CoV-2 RNA (RT-PCR) NEGATIVE (Negative) Independent Interpretation I performed an independent interpretation of an: EKG and Plain X-Ray Interpretation: sinus bradycardia with sinus arrhythmia, rate 59 beats per minute, normal [place] interval, no evidence of STEMI. No acute abnormality on chest x-ray Radiology Impression Discussion of test interpretation with radiology: I have reviewed the radiologist's reading. Radiologist Impression: XR/XR chest 2V IMPRESSION: No acute cardiopulmonary abnormality. External Record Review External record reviewed: Inpatient record, Office record and Outpatient record Prescription Management I considered prescription management with: Antibiotic and Other Scores Heart Score History: -0- slightly suspicious ECG: -0- normal Age: -0- < or = 45 Risk factory: -1- 1 or 2 risk factors Troponin: -0- < or = normal limit Score: 1 Risk: 1.7% Discharge Plan Discharge Clinical Impression: Bronchitis, Costochondritis Patient Disposition: Home, Self-Care Instructions: Costochondritis (ED), Acute Bronchitis (ED) Additional Instructions: You were evaluated in the emergency department today for cough. Your chest x-ray did not show evidence of a pneumonia. You are being treated with an antibiotic for bronchitis. Please complete the full course of antibiotics as prescribed. You are also being prescribed a cough medicine which he may use up to every 8 hours as needed. Please schedule an appointment for follow-up with your primary care physician within 2 days. Return to the emergency department if you experience worsening cough, fever 100.4? F or greater, recurrent vomiting, chest pain, shortness of breath, or any other concerning symptoms. Prescriptions: New doxycycline hyclate 100 mg capsule 100 mg PO BID Qty: 10 0RF benzonatate 100 mg capsule 100 mg PO TID PRN (Reason: cough) Qty: 20 0RF No Action omeprazole 40 mg capsule,delayed release(DR/EC) 40 mg PO BID 30 Days Qty: 60 6RF Flovent HFA 220 mcg/actuation HFA aerosol inhaler 1 puff inhalation BID Proair Digihaler 90 mcg/actuation aero powdr breath act w/sensor 1 inh inhalation Q4H tramadol 50 mg tablet 50 mg PO TID PRN warfarin 5 mg tablet 5 mg PO DAILY aspirin [Adult Aspirin Regimen] 81 mg tablet,delayed release (DR/EC) 81 mg PO DAILY cetirizine 10 mg tablet 10 mg PO DAILY PRN zolpidem 10 mg tablet 10 mg PO BEDTIME PRN albuterol sulfate 2.5 mg /3 mL (0.083 %) solution for nebulization inhalation Q6H PRN FaBB 2.2-25-1 mg tablet 1 tab PO DAILY melatonin 3 mg tablet 3 mg PO BEDTIME nicotine 14 mg/24 hr patch 24 hour 1 patch topical DAILY topiramate 25 mg tablet 0 mg PO Linzess 290 mcg capsule 290 mcg PO QAM Qty: 30 6RF Hold Instructions: Doctor's Order dicyclomine 10 mg capsule 10 mg PO QID Qty: 120 6RF magnesium oxide 400 mg (241.3 mg magnesium) tablet 400 mg PO BID Qty: 60 6RF Fiber Therapy (m-cellulose) 500 mg tablet 1,000 mg PO DAILY Qty: 60 6RF simethicone 180 mg capsule 180 mg PO QID 30 Days Qty: 120 6RF Rx Instructions: after meals albuterol sulfate [Ventolin HFA] 90 mcg/actuation HFA aerosol inhaler 2 puff inhalation Q4-6H PRN nabumetone 500 mg tablet 500 mg PO BID cyclobenzaprine 5 mg tablet 5 mg PO BEDTIME Linzess 145 mcg capsule 145 mcg PO QAM Qty: 30 3RF Print Language: Swedish
[2023-04-16 12:23] VITALS: BP 122/78; RESP 18; TEMP 37.2; O2SAT 99
--- NOTE | 2023-04-16 12:30 | PC.NURSE ---
resting in room. no resp distress. talking well on phone. no pain. vss. foreign language interpreter libertad assisting.
== END 2023-04-16 12:35 | disposition home or self-care (01) ==
PROVIDERS: Emergency Provider Emergency Medicine; PCP Nurse Practitioner Primary Care
DX: J40 Bronchitis, not specified as acute or chronic (principal); M94.0 Chondrocostal junction syndrome [Tietze]; Z20.822 Contact with and (suspected) exposure to COVID-19; Z20.828 Contact with and (suspected) exposure to other viral communicable diseases
CPT/HCPCS: 0241U; 36415; 71046; 80048; 81003; 81025; 84484; 85025; 93005; 99283; 99285

== ENCOUNTER 2023-12-17 14:12 | Outpatient (REF) | payer MEDICAID, SELFPAY ==
--- NOTE | ~2023-12-17 | XR_ITS ---
EXAMINATION: XR HIP, RIGHT CLINICAL INFORMATION: Pain without trauma. COMPARISON: None available. TECHNIQUE: AP and frog-leg lateral views of the right hip. FINDINGS: No fracture. Alignment is anatomic. Hip joint space is maintained. Soft tissues are unremarkable. XR/XR hip RT min 2V IMPRESSION: Normal right hip. EXAMINATION: XR HIP, LEFT CLINICAL INFORMATION: Pain without trauma. COMPARISON: None available. TECHNIQUE: AP and frog-leg lateral views of the left hip. FINDINGS: No fracture. Alignment is anatomic. Hip joint space is maintained. Soft tissues are unremarkable. IMPRESSION: Normal left hip.
--- NOTE | ~2023-12-17 | XR_ITS ---
EXAMINATION: XR HIP, RIGHT CLINICAL INFORMATION: Pain without trauma. COMPARISON: None available. TECHNIQUE: AP and frog-leg lateral views of the right hip. FINDINGS: No fracture. Alignment is anatomic. Hip joint space is maintained. Soft tissues are unremarkable. XR/XR hip LT min 2V IMPRESSION: Normal right hip. EXAMINATION: XR HIP, LEFT CLINICAL INFORMATION: Pain without trauma. COMPARISON: None available. TECHNIQUE: AP and frog-leg lateral views of the left hip. FINDINGS: No fracture. Alignment is anatomic. Hip joint space is maintained. Soft tissues are unremarkable. IMPRESSION: Normal left hip.
== END 2023-12-17 14:13 | disposition home or self-care (01) ==
LOC: HO.HHCX 14:12
PROVIDERS: Visit Provider Nurse Practitioner Primary Care
DX: M25.551 Pain in right hip (principal); M25.552 Pain in left hip
CPT/HCPCS: 73502

== ENCOUNTER 2024-02-03 15:31 | Outpatient (AMB) | payer MEDICAID, SELFPAY ==
--- NOTE | 2024-02-03 15:32 | MHC.OFFVIS ---
Vital Signs 02/03/24 15:33 Height 5 ft 4 in Weight 177 lb 4.026 oz BMI 30.4 BP 107/75 Blood Pressure Location Lt brachial Position Sitting Pulse 76 Intake Visit Reasons: pt req appointment Intake Note: Patient in office today in follow up of epigastric pain. CC: Patient reports epigastric discomfort and pain. She states that she has been having diarrhea but she goes multiple times to the bathroom and stools are liquid but small amounts. 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 I would prefer that she take twice a day dosing since he has a history of hemorrhagic gastritis with scattered erosions.? I have asked her to verify how much she is being prescribed monthly so we can know what the limitation is. She has been taking the LInzess 290 prn, because she found that she would have diarrhea and have to use the BR too much at work when she took it daily. However, this causes her to have a stooling buildup and straining. She has even strained so hard that her legs became numb. I educate her that? we should lower the dose to find a way to take it daily and move her bowels more regularly. We will lower to 145mcg and go from there. She has missed appts r/t her 15 y/o dtr who has had psych episodes and partial hospitalizations with behavioral problems. This is understandable. ROV 6 weeks. (2) Chronic idiopathic constipation: ?Code(s): K59.04 - Chronic idiopathic constipation (3) GERD (gastroesophageal reflux disease): ?Code(s): K21.9 - Gastro-esophageal reflux disease without esophagitis ?Qualifiers: ?Esophagitis presence:?without esophagitis? Qualified Code(s):?K21.9 - Gastro-esophageal reflux disease without esophagitis (4) Abdominal bloating: ?Code(s): R14.0 - Abdominal distension (gaseous) ? ? ? Medications: New linaclotide (Linzess) 145 mcg? PO QAM 30 caps 3RF K59.04 - Chronic idiopathic constipation ? On Hold linaclotide (Linzess) ?? Hold Comment:? Doctor's Order 290 mcg? PO QAM 30 caps 6RF K59.04 - Chronic idiopathic constipation ? 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 In general she feels that her GI regimen controls her stomach issues. She feels like the 145 micro g dose of the Linzess he has the right dose for her, and she continues on her omeprazole twice a day, simethicone, fiber, magnesium and dicyclomine. She will sometimes it better or worse days depending on what food she eats. I tell her that this is somewhat to be expected as we grow older. For now she is agreeable to a 6 month follow-up even though I offered her a year to try to make appointment compliance easier for her given her schedule. [facility] Medical History Depression Migraine Irritable bowel syndrome with both constipation and diarrhea Surgical History Hx of cholecystectomy Mechanical heart valve present H/O heart surgery History of colonoscopy Family History Father No problems noted. Mother No problems noted. Social History Household Members: Children Alcohol intake: never Cigarettes Per Day: 4 Current occupational status: unemployed Current occupation: applying for disability Female Reproductive History Menstrual Age of Menarche: 11 Review of Systems Const Denies fatigue, Denies fever(s), Denies night sweats, Denies poor appetite and Denies weight loss ENT Reports Normal hearing present, Denies dental pain, Denies dysphagia, Denies hearing loss, Denies mouth pain, Denies odynophagia, Denies throat swelling, Denies tongue swelling and Reports other (Dentition adequate) Card Reports no additional complaints Resp Reports no additional complaints GI Details: Denies abdominal pain, Denies melena, Reports bloating, Denies hematochezia, Reports constipation, Denies GI cramping, Denies dysphagia, Denies excessive flatus, Denies early satiety, Reports heartburn, Denies diarrhea, Denies nausea, Denies odynophagia, Denies vomiting and Denies hematemesis Musc Reports back pain and Reports myalgias Skin/Breast Denies pruritus, Denies lesions, Denies rash and Denies jaundice Neuro Reports Normal hearing present and Denies Abnormal speech present Endo Denies fatigue Aller/Immun Denies throat swelling and Denies tongue swelling Physical Exam Vital Signs: Last Vital Signs Pulse 76 02/03/24 15:33 BP 107/75 02/03/24 15:33 BMI result Body Mass Index 30.4 Const General: cooperative, no acute distress, well developed and well groomed Nutritional Appearance: well nourished and overweight Orientation/consciousness: oriented to person, oriented to place and oriented to time Limitations: language barrier HEENT Head: Yes normocephalic and Yes atraumatic Eyes General: appearance normal, both eyes and all related structures Pupils: Equal, round and reactive pupils present Neck Neck: Yes normal visual inspection and Yes no lymphadenopathy Thyroid: Thyroid normal Resp Effort & Inspection: normal respiratory effort and able to speak in complete sentences Auscultation: clear to auscultation bilaterally Cardio Rate: regular rate Rhythm: regular rhythm Heart sounds: Normal, physiologic split S2 sound present Peripheral pulses: radial pulses present and posterior tibial pulses present GI Inspection: No distended and No Abdominal panniculus present Palpation (GI): Soft to palpation, nontender, no guarding, not rigid and No hepatosplenomegaly present Percussion: Yes normal to percussion Auscultation: normal bowel sounds Rectal Exam - Female: deferred Skin General skin exam: no rashes or lesions noted, turgor normal, skin not dry, no jaundice, No spider nevi and no striae Rashes: no rashes Nails: normal Neuro General: oriented to person, oriented to place and oriented to time Cranial nerves: Yes Equal, round and reactive pupils present and Yes Normal hearing present Speech: No Abnormal speech present Extrem General: Yes normal to inspection, No clubbing, No cyanosis and No edema Psych Appearance: grossly normal and well kempt Mental Status: mental status grossly normal Speech and movement: Normal speech and movement present Affect: normal affect Attitude: cooperative Thought process: Normal thought process present and not confabulating Thought content: Normal thought content present Insight: Limited insight present (Psych) Judgement: Limited judgement present (Psych) Assessment & Plan Assessment & Plan (1) Erosive gastritis: Code(s): K29.60 - Other gastritis without bleeding Category: Medical (2) Chronic idiopathic constipation: Code(s): K59.04 - Chronic idiopathic constipation Category: Medical (3) GERD (gastroesophageal reflux disease): Code(s): K21.9 - Gastro-esophageal reflux disease without esophagitis Category: Medical Qualifiers: Esophagitis presence: without esophagitis Qualified Code(s): K21.9 - Gastro-esophageal reflux disease without esophagitis Plan [facility] # 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 In general she feels that her GI regimen controls her stomach issues. She feels like the 145 micro g dose of the Linzess he has the right dose for her, and she continues on her omeprazole twice a day, simethicone, fiber, magnesium and dicyclomine. She will sometimes it better or worse days depending on what food she eats. I tell her that this is somewhat to be expected as we grow older. For now she is agreeable to a 6 month follow-up even though I offered her a year to try to make appointment compliance easier for her given her schedule. Medications: Refilled simethicone (Gas Relief Ultra Strength) 180 mg PO QID 120 caps 6RF R14.0 - Abdominal distension (gaseous) methylcellulose (laxative) (Fiber Therapy (methylcellulose)) 1,000 mg (2 x 500 mg) PO DAILY 60 tabs 6RF K58.2 - Mixed irritable bowel syndrome magnesium oxide 400 mg PO BID 60 tabs 6RF linaclotide (Linzess) 145 mcg PO QAM 30 caps 6RF K59.04 - Chronic idiopathic constipation omeprazole 40 mg PO BID 60 caps 6RF 30 days K21.9 - Gastro-esophageal reflux disease without esophagitis Discontinued linaclotide (Linzess) Discontinued Reason: Doctor's Order 290 mcg PO QAM 30 caps 6RF K59.04 - Chronic idiopathic constipation Coding Level of Care Code Est Pt Level 3 (56814) Diagnoses Erosive gastritis K29.60 Chronic idiopathic constipation K59.04 GERD (gastroesophageal reflux disease) K21.9 Esophagitis presence: without esophagitis
[2024-02-03 15:33] VITALS: BP 107/75; PULSE 76; BMI 30.4
== END 2024-02-03 15:52 | disposition home or self-care (01) ==
PROVIDERS: PCP Nurse Practitioner Primary Care; Visit Provider Nurse Practitioner
DX: K29.60 Other gastritis without bleeding (principal); K59.04 Chronic idiopathic constipation; K21.9 Gastro-esophageal reflux disease without esophagitis
CPT/HCPCS: 99213

== ENCOUNTER → 2024-02-03 15:31 | Outpatient (BNVA) | payer MEDICAID, SELFPAY | PROVIDERS: PCP Nurse Practitioner Primary Care; Visit Provider Nurse Practitioner | DX: K21.9 Gastro-esophageal reflux disease without esophagitis (principal); K59.04 Chronic idiopathic constipation; K29.60 Other gastritis without bleeding | CPT/HCPCS: 99212 ==

== ENCOUNTER 2024-12-27 15:49 | Outpatient (AMB) | payer MEDICAID, SELFPAY ==
--- NOTE | 2024-12-27 15:51 | MHC.OFFVIS ---
Vital Signs 12/27/24 16:03 Height 5 ft 4 in Weight 196 lb BMI 33.6 BP 134/82 Blood Pressure Location Rt brachial Position Sitting Pulse 74 Pulse Source Pulse Oximeter Pulse Oximetry (%) 96 Oxygen Delivery Method Room Air Intake Visit Reasons: 6 month follow up CIC Intake Note: Est pt for CIC + GERD mgmt. EMMA 2023. CC: C.O. RUQ + R Flank pain and GERD persistence. Pt has stopped taking her omeprazole as she had experienced an adverse reaction (chest pain). Pt has not had the experience anymore as she has stopped taking the medication completely. Pt denies any additional sx or concerns. Lan Administrator Required: No Accompanied by: Self / Same As Patient Allergies No Known Allergies (No Known Allergies*) Allergy (Verified 12/27/24 15:51) HPI HPI 6 month follow up CIC: Details: Assessment & Plan (1) Erosive gastritis: Code(s): K29.60 - Other gastritis without bleeding Category: Medical (2) Chronic idiopathic constipation: Code(s): K59.04 - Chronic idiopathic constipation Category: Medical (3) GERD (gastroesophageal reflux disease): Code(s): K21.9 - Gastro-esophageal reflux disease without esophagitis Category: Medical Qualifiers: Esophagitis presence: without esophagitis Qualified Code(s): K21.9 - Gastro-esophageal reflux disease without esophagitis Plan COLOMBIAN # has declined aerial photograph interpreter PATIENT HAS BEEN LOST TO FOLLOW-UP SINCE 09/2022 She has not followed up because 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 In general she feels that her GI regimen controls her stomach issues. She feels like the 145 micro g dose of the Linzess he has the right dose for her, and she continues on her omeprazole twice a day, simethicone, fiber, magnesium and dicyclomine. She will sometimes it better or worse days depending on what food she eats. I tell her that this is somewhat to be expected as we grow older. For now she is agreeable to a 6 month follow-up even though I offered her a year to try to make appointment compliance easier for her given her schedule. Medications: Refilled simethicone (Gas Relief Ultra Strength) 180 mg PO QID 120 caps 6RF R14.0 - Abdominal distension (gaseous) methylcellulose (laxative) (Fiber Therapy (methylcellulose)) 1,000 mg (2 x 500 mg) PO DAILY 60 tabs 6RF K58.2 - Mixed irritable bowel syndrome magnesium oxide 400 mg PO BID 60 tabs 6RF linaclotide (Linzess) 145 mcg PO QAM 30 caps 6RF K59.04 - Chronic idiopathic constipation omeprazole 40 mg PO BID 60 caps 6RF 30 days K21.9 - Gastro-esophageal reflux disease without esophagitis Discontinued linaclotide (Linzess) Discontinued Reason: Doctor's Order 290 mcg PO QAM 30 caps 6RF K59.04 - Chronic idiopathic constipation TODAY'S VISIT Norwegian # declined aerial photograph interpreter in past She says she has not been well. Her pain in the RUQ has returned after 2 y ears, it hurt in the right UQ to flank and radiates to the back and the chest. She has tried using a gas pill, she is moving her bowels, It will be very severe but last only for minutes leaving some residual soreness. At worst is 10/10 and least 4/10. It happens 2-3 times a day and almost every day. It is relieved a little bti by running to the shower and putting hot water on it and massaging the area. She is not certain if it is r/t eating or moving the bowels. The only specific thing that will really set off the pain is grease. She is not taking the LInzess every day, which may be part of the problem. She also is our of the bentyl and magnesium. We will restart the bentyl and then evaluate. I educate her that the LInzess treats the pain of CIC not just the actual bowel movement. I encourage her to take it nearly every day and/or we can decrease the dose. In the past she has to present to the ER and after multiple workups in imaging no reason for her pain was ever found, so I feel like this needs to be a clinical diagnosis although we can progress to other testing depending on her response. In the past she responded well to these medical interventions. ROV 6 weeks, if not better consider imaging or other test. [facility] Medical History Depression Migraine Irritable bowel syndrome with both constipation and diarrhea Surgical History Hx of cholecystectomy Mechanical heart valve present H/O heart surgery History of colonoscopy Family History Father No problems noted. Mother No problems noted. Social History Household Members: Children Alcohol intake: never Cigarettes Per Day: 4 Current occupational status: unemployed Current occupation: applying for disability Female Reproductive History Menstrual Age of Menarche: 11 Review of Systems Const Denies fatigue, Denies fever(s), Denies night sweats, Denies poor appetite and Denies weight loss ENT Reports Normal hearing present, Denies dental pain, Denies dysphagia, Denies hearing loss, Denies mouth pain, Denies odynophagia, Denies throat swelling, Denies tongue swelling and Reports other (Dentition adequate) Card Reports no additional complaints Resp Reports no additional complaints GI Details: Reports abdominal pain, Denies melena, Denies bloating, Denies hematochezia, Reports constipation, Denies GI cramping, Denies dysphagia, Denies excessive flatus, Denies early satiety, Reports heartburn, Denies diarrhea, Denies nausea, Denies odynophagia, Denies vomiting and Denies hematemesis Reports flank pain Musc Reports back pain Skin/Breast Denies pruritus, Denies lesions, Denies rash and Denies jaundice Neuro Reports Normal hearing present and Denies Abnormal speech present Endo Denies fatigue Aller/Immun Denies throat swelling and Denies tongue swelling Physical Exam Vital Signs: Last Vital Signs Pulse 74 12/27/24 16:03 Pulse Ox 96 12/27/24 16:03 Oxygen Delivery Method Room Air 12/27/24 16:03 BMI result Body Mass Index 33.6 Const General: cooperative, no acute distress, well developed and well groomed Nutritional Appearance: well nourished and obese Orientation/consciousness: oriented to person, oriented to place and oriented to time Limitations: No language barrier HEENT Head: Yes normocephalic and Yes atraumatic Eyes General: appearance normal, both eyes and all related structures Pupils: Equal, round and reactive pupils present Neck Neck: Yes normal visual inspection and Yes no lymphadenopathy Thyroid: Thyroid normal Resp Effort & Inspection: normal respiratory effort and able to speak in complete sentences Auscultation: clear to auscultation bilaterally Cardio Rate: regular rate Rhythm: regular rhythm Heart sounds: Normal, physiologic split S2 sound present Peripheral pulses: radial pulses present and posterior tibial pulses present GI Inspection: No distended, No Abdominal panniculus present and Yes obesity Palpation (GI): Soft to palpation, nontender, no guarding, not rigid and No hepatosplenomegaly present Percussion: Yes normal to percussion Auscultation: normal bowel sounds Rectal Exam - Female: deferred Skin General skin exam: no rashes or lesions noted, turgor normal, skin not dry, no jaundice, No spider nevi and no striae Rashes: no rashes Nails: normal Neuro General: oriented to person, oriented to place and oriented to time Cranial nerves: Yes Equal, round and reactive pupils present and Yes Normal hearing present Speech: No Abnormal speech present Extrem General: Yes normal to inspection, No clubbing, No cyanosis and No edema Psych Appearance: grossly normal and well kempt Mental Status: mental status grossly normal Speech and movement: Normal speech and movement present Affect: normal affect Attitude: cooperative Thought process: Normal thought process present and not confabulating Thought content: Normal thought content present Insight: Fair insight present (Psych) Judgement: Fair judgement present (Psych) Assessment & Plan Assessment & Plan (1) GERD (gastroesophageal reflux disease): Code(s): K21.9 - Gastro-esophageal reflux disease without esophagitis Category: Medical Qualifiers: Esophagitis presence: without esophagitis Qualified Code(s): K21.9 - Gastro-esophageal reflux disease without esophagitis (2) Erosive gastritis: Code(s): K29.60 - Other gastritis without bleeding Category: Medical (3) Chronic idiopathic constipation: Code(s): K59.04 - Chronic idiopathic constipation Category: Medical (4) Abdominal bloating: Code(s): R14.0 - Abdominal distension (gaseous) Category: Medical Plan Norwegian # declined aerial photograph interpreter in past She says she has not been well. Her pain in the RUQ has returned after 2 y ears, it hurt in the right UQ to flank and radiates to the back and the chest. She has tried using a gas pill, she is moving her bowels, It will be very severe but last only for minutes leaving some residual soreness. At worst is 10/10 and least 4/10. It happens 2-3 times a day and almost every day. It is relieved a little bti by running to the shower and putting hot water on it and massaging the area. She is not certain if it is r/t eating or moving the bowels. The only specific thing that will really set off the pain is grease. She is not taking the LInzess every day, which may be part of the problem. She also is our of the bentyl and magnesium. We will restart the bentyl and then evaluate. I educate her that the LInzess treats the pain of CIC not just the actual bowel movement. I encourage her to take it nearly every day and/or we can decrease the dose. In the past she has to present to the ER and after multiple workups in imaging no reason for her pain was ever found, so I feel like this needs to be a clinical diagnosis although we can progress to other testing depending on her response. In the past she responded well to these medical interventions. ROV 6 weeks, if not better consider imaging or other test. Medications: Refilled dicyclomine 10 mg PO QID 120 caps 6RF K58.2 - Mixed irritable bowel syndrome simethicone (Gas Relief Ultra Strength) 180 mg PO QID 120 caps 6RF R14.0 - Abdominal distension (gaseous) linaclotide (Linzess) 145 mcg PO QAM 30 caps 6RF K59.04 - Chronic idiopathic constipation magnesium oxide 400 mg PO BID 60 tabs 6RF Coding Level of Care Code Est Pt Level 3 (14253) Diagnoses GERD (gastroesophageal reflux disease) K21.9 Esophagitis presence: without esophagitis Erosive gastritis K29.60 Chronic idiopathic constipation K59.04 Abdominal bloating R14.0
[2024-12-27 16:03] VITALS: BP 134/82; PULSE 74; O2SAT 96; BMI 33.6
--- OUTSIDE RECORDS SUMMARY | 2024-12-27 18:50 | XMS_ITS | Clinical Summary ---
Author Organization [facility] Address [address] [place] [address] Phone Care Team Providers Care Water Softener Servicer And Installer Name Role Phone Kasey Taylor NP Primary Care Provider [phone] Allergies No known active allergies Encounters Date Type Department Care Team Description 11/14/2024 7:27 AM EDT - 11/14/2024 8:26 AM EDT Emergency [facility] [address] [place] [address] Bug bite, initial encounter (Primary Dx) Discharge Disposition: Home or Self Care from Last 3 Months Medical History Medical History Date Comments Depression Deficient knowledge of valve replacement 2015 Social History Tobacco Use Types Packs/Day Years Used Date Smoking Tobacco: Every Day Cigarettes Smokeless Tobacco: Former Tobacco Cessation:Ready to Q uit: Not Asked; Counseling Given: Not Answered Alcohol Use Standard Drinks/Week Comments Never 0 (1 standard drink = 0.6 oz pur e alcohol) Comments No Sex and Gender Information Value Date Recorded Sex Assigned at Not on file Legal Sex Female 5:36 AM EST Gender Identity Not on file Sexual Orientation Not on file Obstetrics History Last Filed Vital Signs Vital Sign Reading Time Taken Comments Blood Pressure 130/82 11/14/2024 5:19 AM EDT Pulse 82 11/14/2024 5:19 AM EDT Temperature 36.8 C (98.2 F) 11/14/2024 5:19 AM EDT Respiratory Rate 16 11/14/2024 5:19 AM EDT Oxygen Saturation 97% 11/14/2024 5:19 AM EDT Inhaled Oxygen Concentration - - Weight 83 kg (183 lb) 11/14/2024 5:19 AM EDT Height 162.6 cm (5' 4 ) 11/14/2024 5:19 AM EDT Body Mass Index 31.41 11/14/2024 5:19 AM EDT Plan of Treatment Health Maintenance Due Date Last Done Comments Cervical Cancer Screening: Pap Smear 11/14/1999 Hepatitis B Vaccines (3 of 3 - 19+ 3-dose series) 03/04/2016 01/08/2016, 08/05/2007 Colorectal Cancer Screening: Colonoscopy 06/08/2022 Hepatitis C Screening 06/08/2022 Social Influencers of Health Screening 06/08/2022 Breast Cancer Screening 10/03/2022 10/03/2020 COVID-19 Vaccine ( season) 2024 Depression Screening 11/26/2024 11/27/2023 Influenza Vaccine (Season Ended) 2025 06/12/2021, 06/23/2019, 07/01/2018, Additional history exists Cholesterol Screening (Lipid Panel) 06/14/2026 06/14/2021 DTaP,Tdap,and Td Vaccines (4 - Td or Tdap) 08/22/2031 08/22/2021, 07/20/2009, 02/18/2006 HIV Screening Completed 06/14/2021 Pneumococcal Vaccine: Pediatrics (0 to 5 Years) and At-Risk Patients (6 to 64 Years) Completed 10/17/2024 HIB Vaccines Aged Out No longer eligi ble based on patient's age to complete this topic HPV Vaccines Aged Out No longer eligi ble based on patient's age to complete this topic Hepatitis A Vaccines Aged Out No long er eligible based on patient's age to complete this topic IPV Vaccines Aged Out No longer eligi ble based on patient's age to complete this topic MMR Vaccines Aged Out No longer eligi ble based on patient's age to complete this topic Meningococcal ACWY Vaccine Aged Out N o longer eligible based on patient's age to complete this topic Meningococcal B Vaccine Aged Out No l onger eligible based on patient's age to complete this topic RSV Immunization Patients Under 20 months Aged Out No longer eligible based on patient's age to complete this topic Varicella Vaccines Aged Out No longer eligible based on patient's age to complete this topic Insurance MEDICAID - [place] Care Teams Water Softener Servicer And Installer Relationship Specialty Start Date End Date Kasey Taylor NP [address] [address] PCP - General 11/06/23
== END 2024-12-27 16:37 | disposition home or self-care (01) ==
LOC: HO.HGI 15:50
PROVIDERS: PCP Nurse Practitioner Primary Care; Visit Provider Nurse Practitioner
DX: K21.9 Gastro-esophageal reflux disease without esophagitis (principal); K29.60 Other gastritis without bleeding; K59.04 Chronic idiopathic constipation; R14.0 Abdominal distension (gaseous)
CPT/HCPCS: 99213

== ENCOUNTER → 2024-12-27 15:49 | Outpatient (BNVA) | payer MEDICAID, SELFPAY | PROVIDERS: PCP Nurse Practitioner Primary Care; Visit Provider Nurse Practitioner | DX: K21.9 Gastro-esophageal reflux disease without esophagitis (principal); K29.60 Other gastritis without bleeding; K59.04 Chronic idiopathic constipation; R14.0 Abdominal distension (gaseous); K58.2 Mixed irritable bowel syndrome | CPT/HCPCS: 99212 ==

== ENCOUNTER 2025-02-17 10:18 | Outpatient (REF) | payer MEDICAID, SELFPAY ==
--- NOTE | ~2025-02-17 | XR_ITS ---
EXAMINATION: XR HIP, LEFT CLINICAL INFORMATION: pain COMPARISON: December 17, 2023. TECHNIQUE: AP and oblique views of the left hip. FINDINGS: Marginal osteophyte formation is acetabulum. Mild sclerosis in the articular surface of the acetabulum. There is preservation of the joint space.. No acute cortical disruption or malalignment. No lytic or blastic lesions. XR/XR hip LT min 2V IMPRESSION: Mild osteoarthrosis/osteoarthritis, left hip. Electronically signed by: Prosper Garcia MD 02/17/2025 12:26 PM EDT
--- NOTE | ~2025-02-17 | XR_ITS ---
EXAMINATION: XR HIP, RIGHT CLINICAL INFORMATION: pain COMPARISON: December 17, 2023. TECHNIQUE: AP and oblique views of the right hip. FINDINGS: No acute cortical disruption or malalignment. Normal joint space. No lytic or blastic lesions. No subcutaneous emphysema. XR/XR hip RT min 2V IMPRESSION: Normal x-ray right hip. Electronically signed by: Prosper Garcia MD 02/17/2025 12:25 PM EDT
--- OUTSIDE RECORDS SUMMARY | 2025-02-17 10:28 | XMS_ITS | Clinical Summary ---
Author Organization [facility] Address [address] [place] [address] Phone Care Team Providers Care Clerical Grader Name Role Phone Kasey Taylor NP Primary Care Provider [phone] Allergies No known active allergies Medical History Medical History Date Comments Depression Deficient knowledge of valve replacement 2014 Social History Tobacco Use Types Packs/Day Years [...] COVID-19 Vaccine ( season) 2024 Depression Screening 07/06/2024 Influenza Vaccine (#1) 2025 , 06/23/2019, 07/01/2018, Additional history exists Cholesterol Screening (Lipid Panel) 06/14/2026 06/14/2021 DTaP,Tdap,and Td Vaccines (4 - Td or Tdap) 08/22/2031 08/22/2021, 07/20/2009, 02/18/2006 HIV Screening Completed 06/14/2021 Pneumococcal Vaccine: Pediatrics (0 to 5 Years) and At-Risk Patients (6 to 49 Years) Completed 10/17/2024 HIB Vaccines Aged Out [...] to complete this topic Insurance [place] - [place] Care Teams Clerical Grader Relationship Specialty Start Date End Date Kasey Taylor NP [address] [place] [phone] PCP - General 11/06/23
--- OUTSIDE RECORDS SUMMARY | 2025-02-17 10:28 | XMS_ITS | Encounter Summary ---
Author Organization [employer] Address [address] [place] [address] [address] [place] [address] Care Team Providers Care Recreation Coordinator Name Role Phone Kasey Taylor Primary Care Provider [phone] Ran Gallegos MD Unavailable [phone] Reason for Visit * Reason Onset Date Comments Med Refill 06/22/2023 Encounter Details Date Type Department Care Team (Late st Contact Info) Description 06/22/2023 Telephone [facility] MEDICINE [address] [place], [place] [phone] Kasey Taylor ANP [address] [place], [place] [phone] Med Refill Social History Tobacco Use Types Packs/Day Years Used Date Smoking Tobacco: Every Day Cigarettes Smokeless Tobacco: Never Alcohol Use Standard Drinks/Week Comments Not Currently 0 (1 standard drink = 0.6 oz pur e alcohol) Comments Unknown Sex and Gender Information Value Date Recorded Sex Assigned at Female 05/05/2022 10:20 AM EDT Legal Sex Female 10:20 AM EDT Gender Identity Female 05/05/2022 10:20 AM EDT Sexual Orientation Straight 05/05/2022 10 :20 AM EDT documented as of this encounter Miscellaneous Notes * Telephone Encounter - Doug Mari - 06/22/2023 10:38 AM EST Tc from pt requesting med refill on traMADol (Ultram) 50 MG tablet Please sent to [facility] - [place] - [phone] - [place] - [address] documented in this encounter Plan of Treatment Upcoming Encounters Date Type Department Care Team (Late st Contact Info) Description 04/10/2025 2:00 PM EDT Office Visit [facility] [address] [place] [address] Kasey Taylor ANP [address] [place] [address] 04/25/2025 3:00 PM EDT Clinical Support [facility] [address] [place] [address] Shy Ordoñez, BONNIE [address] [place] [address] documented as of this encounter Visit Diagnoses Not on filedocumented in this encounter Care Teams Recreation Coordinator Relationship Specialty Start Date End Date Kasey Taylor ANP [address] [place] [address] PCP - General Family Medicine 02/27/21 Ran [place] [address] Cardiology 06/17/24 documented as of this encounter
--- OUTSIDE RECORDS SUMMARY | 2025-02-17 10:28 | XMS_ITS | Clinical Summary ---
Author Organization [facility] Address [address] [address] Phone Care Team Providers Care Underwriting Technician Name Role Phone Mayur Mendez LODGING FACILITIES ATTENDANT Primary Care Provider Allergies No known active allergies Active Problems Problem Noted Date Diagnosed Date Aortic valve stenosis 07/19/2014 Overview (08/25/2014): Aortic valve stenosis Immunizations Immunization Administration Dates Next Due Influenza, Unspecified Formulation 07/26/2014([place]d: Patient Decision) Social History Tobacco Use Types Packs/Day Years Used Date Smoking Tobacco: Never Assessed Comments Unknown Sex and Gender Information Value Date Recorded Sex Assigned at Not on file Legal Sex Female 2:41 PM EST Gender Identity Not on file Sexual Orientation Not on file Last Filed Vital Signs Vital Sign Reading Time Taken Comments Blood Pressure 120/70 07/23/2014 12:00 AM EST Pulse 66 07/23/2014 12:00 AM EST Temperature 37.1 C (98.8 F) 07/23/2014 12:00 AM EST Respiratory Rate 14 07/23/2014 12:00 AM EST Oxygen Saturation 98% 07/23/2014 12:00 AM EST Inhaled Oxygen Concentration - - Weight 89.8 kg (198 lb) 07/26/2014 12:46 PM EST Height 165.1 cm (5' 5 ) 07/26/2014 12:46 PM EST Body Mass Index 32.95 07/26/2014 12:46 PM EST Plan of Treatment Not on file Medical Devices Not on file Insurance [facility] [place] [address] [place] [address] [place] [place] [address] [address] [facility] [place] [address] [place] [address] [place] [address] [place] [address] [facility] Care Teams Underwriting Technician Relationship Specialty Start Date End Date Mayur Mendez NP [address] [place] [phone] PCP - General Family Medicine 05/24/14 Additional Source Comments The information contained in this document represents components of the legal health record. It is not the complete legal health record.[facility]
== END 2025-02-17 10:19 | disposition home or self-care (01) ==
LOC: HO.HHCX 10:18
PROVIDERS: Visit Provider Internal Medicine
DX: M25.552 Pain in left hip (principal); M25.551 Pain in right hip
CPT/HCPCS: 73502

== ENCOUNTER → 2025-02-17 10:19 | Outpatient (BNV) | payer MEDICAID, SELFPAY | PROVIDERS: Visit Provider Radiology Diagnostic Radiology | DX: M16.12 Unilateral primary osteoarthritis, left hip (principal); M25.551 Pain in right hip | CPT/HCPCS: 73502 ==

== ENCOUNTER 2025-03-23 08:53 | Outpatient (REF) | payer MEDICAID, SELFPAY ==
--- OUTSIDE RECORDS SUMMARY | 2025-03-24 09:38 | XMS_ITS | Encounter Summary ---
Author Organization [employer] Address [address] [place] [address] [address] [place] [address] Care Team Providers Care Rescue Boat Operator Name Role Phone Kasey Taylor Primary Care Provider [phone] Ran Gallegos MD Unavailable [phone] Reason for Visit * Reason Onset Date Comments Med Refill 10/13/2022 Encounter Details Date Type Department Care Team (Late st Contact Info) Description 10/13/2022 Telephone [facility] MEDICINE [address] [place], [place] [phone] Kasey Taylor ANP [address] [place], [place] [phone] Med Refill Social History Tobacco Use Types [...] Orientation Straight 05/05/2022 10 :20 AM EDT COVID-19 Exposure Response Date Recorded In the last 10 days, have yo u been in contact with someone who was confirmed or suspected to have Coronavirus/COVID-19? No / Unsure 10/06/2022 3:19 PM EDT documented as of this encounter Miscellaneous Notes * Telephone Encounter - Sonalweslysadiarui Higinio Mari - 10/13/2022 9:07 AM EDT Tc from pt requesting med refill on traMADol (Ultram) 50 MG tablet Please sent to [facility] - [place] - [phone] - [place] - [address] documented in this encounter Plan of Treatment Upcoming Encounters Date Type Department Care Team (Late st Contact Info) Description 04/10/2025 2:00 PM EDT Office Visit [facility] MEDICINE [address] [place] [phone] Kasey Taylor ANP [address] [place] [address] 04/25/2025 3:00 PM EDT Clinical Support [facility] [address] [place] [address] Shy Ordoñez, BONNIE [address] [place] [address] 05/19/2025 1:00 PM EST Office Visit [address] [address] Nandini Laurent MD [address] [place] [address] documented as of this encounter Visit Diagnoses Not on filedocumented in this encounter Care Teams Rescue Boat Operator Relationship Specialty Start Date End Date Kasey Taylor ANP [address] [place] [phone] PCP - General Family Medicine 02/27/21 Ran Gallegos [place] [address] Cardiology 06/17/24 documented as of this encounter
--- OUTSIDE RECORDS SUMMARY | 2025-03-24 09:38 | XMS_ITS | Encounter Summary ---
Author Organization [employer] Address [address] [place] [address] 7t [place] [address] Care Team Providers Care Trim Mechanic Name Role Phone Kasey Taylor Primary Care Provider [phone] Ran Gallegos MD Unavailable [phone] Reason for Visit * Reason Onset Date Comments Med Refill 03/20/2025 Encounter Details Date Type Department Care Team (Late st Contact Info) Description 03/20/2025 Refill [facility] MEDICINE [address] [place], [place] [phone] Kasey Taylor ANP [address] [place], [place] [phone] Primary insomnia Social History Tobacco Use Types Packs/Day Years Used Date Smoking Tobacco: Every Day Cigarettes Passive Smoke Exposure: Current Smokeless Tobacco: Never Alcohol Use Standard Drinks/Week Comments Not Currently 0 (1 standard drink = 0.6 oz pur e alcohol) Alcohol Answer Date Recorded How often do you have a drink containing alcohol ? 0 04/14/2024 Average Number of Drinks Not on file 024 Frequency of Binge Drinking Not on file 04/05 Depression Answer Date Recorded Patient Health Questionnaire-9 Score 3 11/27/2023 Patient Health Questionnaire-9 Score 3 11/27/2023 Last PHQ-9: Questionnaire Data Not on file 0 11/27/2023 Housing Stability Answer Date Recorded What is your housing situation today? I have crissy tam 11/27/[address] you li ve. Do you have problems with any of the following? None of the above 11/27/2023 Food Insecurity Answer Date Recorded Within the past 12 months, y ou worried that your food would run out before you got money to buy more: Never True 11/27/2023 Within the past 12 months,th e food you bought just didn't last and you didn't have enough money to get more: Never True Transportation Answer Date Recorded In the past 12 months, has l ack of transportation kept you from medical appts, meetings, work or from getting things needed for daily living? No 11/27/2023 Utilities Answer Date Recorded In the past 12 months, has t he electric, gas, oil or water company threatened to shut off services in your home? No 11/27/2023 Depression Answer Date Recorded Patient Health Questionnaire-2 Score 2 11/27/2023 Internet Access Answer Date Recorded Internet Access Q1 Yes 10/04/2024 Internet Access Q2 Not on file 10/04/2024 Comments Unknown Sex and Gender Information Value Date Recorded Sex Assigned at Female 05/05/2022 10:20 AM EDT Legal Sex Female 10:20 AM EDT Gender Identity Female 05/05/2022 10:20 AM EDT Sexual Orientation Straight 05/05/2022 10 :20 AM EDT documented as of this encounter Miscellaneous Notes * Telephone Encounter - Beverley Scott LPN - 03/20/2025 1:29 PM EDT CLIENT DEVELOPMENT DIRECTOR checked on 03/20/25. Last seen 01/04/25. * Telephone Encounter - Malcolm Rosado - 03/20/2025 1:25 PM EDT TC from pt requesting medication refill. Medications needing refill : zolpidem (Ambien) 10 MG tablet To be sent to: [facility] - [place], [place] - [id number] - [place], [place] - [address] documented in this encounter Plan of Treatment Upcoming Encounters Date Type Department Care Team (Late st Contact Info) Description 04/10/2025 2:00 PM EDT Office Visit [facility] MEDICINE [address] [place] [address] Kasey Taylor ANP [address] [place] [address] 04/25/2025 3:00 PM EDT Clinical Support [facility] CHC MED & PEDS [address] [place] [address] Shy Ordoñez, RN [address] [place], [place] 05/19/2025 1:00 PM EST Office Visit [facility] MEDICINE [address] [place] [address] Nandini Laurent MD [address] [place], [place] documented as of this encounter Visit Diagnoses Diagnosis Primary insomnia Persistent disorder of initiating or maintaining sleep documented in this encounter Additional Health Concerns Assessment Noted Time PHQ-9 Depression Total Score: 3 11/27/19 24 2:18 PM EDT documented as of this encounter Care Teams Trim Mechanic Relationship Specialty Start Date End Date Kasey Taylor ANP [address] [place] [address] PCP - General Family Medicine 02/27/21 [place] [address] Cardiology 06/17/24 documented as of this encounter
--- OUTSIDE RECORDS SUMMARY | 2025-03-24 09:38 | XMS_ITS | Encounter Summary ---
Author Organization [employer] Address [address] [facility] 7t [place] [address] Care Team Providers Care Motorcycle Service Technician Name Role Phone Kasey Taylor Primary Care Provider [phone] Ran Gallegos MD Unavailable [phone] Reason for Visit * Reason Onset Date Comments Med Refill 03/02/2025 Encounter Details Date Type Department Care Team (Late st Contact Info) Description 03/02/2025 Telephone [facility] MEDICINE [address] [place], [place] [phone] Kasey Taylor ANP [address] [place], [place] [phone] Med Refill Social History Tobacco Use Types [...] encounter Miscellaneous Notes * Telephone Encounter - Jennie Manriquez - 03/02/2025 3:55 PM EDT TC from pt requesting medication refill. Medications needing refill : - traMADol (Ultram) 50 MG tablet To be sent to: - [facility] - [place], [place] - [id number] - [place] - [address] documented in this encounter Plan of Treatment Upcoming Encounters Date Type Department Care Team (Late st Contact Info) Description 04/10/2025 2:00 PM EDT Office Visit [facility] MEDICINE [address] [place], [place] [phone] Kasey Taylor ANP [address] [place] [address] 04/25/2025 3:00 PM EDT Clinical Support [facility] CHC MED & PEDS [address] [place] [address] Shy Ordoñez, RN [address] [place] [address] 05/19/2025 1:00 PM EST Office Visit [facility] MEDICINE [address] [place] [address] Nandini Laurent MD [address] [place] [address] documented as of this encounter Visit Diagnoses Not on filedocumented in this encounter Additional Health Concerns Assessment Noted Time PHQ-9 Depression Total Score: 3 11/27/19 24 2:18 PM EDT documented as of this encounter Care Teams Motorcycle Service Technician Relationship Specialty Start Date End Date Kasey Taylor ANP [address] [place] [address] PCP - General Family Medicine 02/27/21 Ran Gallegos [place] [address] Cardiology 06/17/24 documented as of this encounter
--- OUTSIDE RECORDS SUMMARY | 2025-03-24 09:38 | XMS_ITS | Encounter Summary ---
Author Organization [employer] Address [address] [place] [address] 7t [place] [address] Care Team Providers Care Pure Pak Machine Operator Name Role Phone Kasey Taylor Primary Care Provider [phone] Ran Gallegos MD Unavailable [phone] Encounter Details Date Type Department Care Team (Late st Contact Info) Description 04/03/2023 Abstract [facility] MEDICINE [address] [place] [phone] Kasey Taylor ANP [address] [place] [phone] Social History Tobacco Use Types Packs/Day Years [...] AM EDT documented as of this encounter Plan of Treatment Upcoming Encounters Date Type Department Care Team (Late st Contact Info) Description 04/10/2025 2:00 PM EDT Office Visit [facility] MEDICINE [address] [place] [phone] Kasey Taylor ANP [address] [place] [address] 04/25/2025 3:00 PM EDT Clinical Support [facility] CHC MED & PEDS [address] [facility] [address] Shy Ordoñez, RN [address] [place], [place] [phone] 05/19/2025 1:00 PM EST Office Visit [facility] MEDICINE [address] [place] [address] Nandini Laurent MD [address] [place] [address] documented as of this encounter Procedures Procedure Name Priority Date/Time Associated Diagnosis Comments PAP/HPV Routine 04/15/2022 documented in this encounter Results * Pap Smear (04/15/2022) Pap Negative for intraephithelial lesion or malignancy Negative for intraephithelial lesion or malignancy, Other HPV Undetected Historical Provider [facility] Final Result documented in this encounter Visit Diagnoses Not on filedocumented in this encounter Care Teams Pure Pak Machine Operator Relationship Specialty Start Date End Date Kasey Taylor ANP [address] [place] [address] PCP - General Family Medicine 02/27/21 Ran Gallegos MD [address] [facility] [place] [address] Cardiology 06/17/24 documented as of this encounter
--- OUTSIDE RECORDS SUMMARY | 2025-03-24 09:38 | XMS_ITS | Encounter Summary ---
Author Organization [employer] Address [address] [facility] 7t [place] [address] Care Team Providers Care Composite Assembler Name Role Phone Kasey Taylor Primary Care Provider [phone] Ran Gallegos MD Unavailable [phone] Reason for Visit * Reason Comments Med Refill Encounter Details Date Type Department Care Team ([facility] st Contact Info) Description 03/10/[address] [facility] CHC MED & PEDS [address] [place], [place] [phone] Kasey Taylor ANP [address] [place] [address] Primary insomnia Social History Tobacco Use Types [...] the past 12 months, has t he [employer], gas, oil or water [employer] threatened to shut off services in your [...] Description 04/10/2025 2:00 PM EDT Office Visit [facility] MEDICINE [address] [place] [address] Kasey Taylor ANP [address] [place] [address] 04/25/2025 3:00 PM EDT Clinical Support [facility] CHC MED & PEDS [address] [place] [address] Shy Ordoñez, BONNIE 505 [place] [address] 05/19/2025 1:00 PM EST Office Visit [facility] MEDICINE [address] [place] [address] Nandini Laurent MD [address] [place] [address] documented as of this encounter Visit Diagnoses Diagnosis Primary insomnia Persistent disorder of initiating or maintaining sleep documented in this encounter Additional Health Concerns Assessment Noted Time PHQ-9 Depression Total Score: 3 11/27/19 24 2:18 PM EDT documented as of this encounter Care Teams Composite Assembler Relationship Specialty Start Date End Date Kasey Taylor ANP [address] [place] [address] PCP - General Family Medicine 02/27/21 Ran Gallegos MD [address] [place] [address] Cardiology 06/17/24 documented as of this encounter
--- OUTSIDE RECORDS SUMMARY | 2025-03-24 09:38 | XMS_ITS | Encounter Summary ---
Author Organization [employer] Address [address] [facility] 7t [place] [address] Care Team Providers Care Bus Driver Supervisor Name Role Phone Kasey Taylor Primary Care Provider [phone] Ran Gallegos MD Unavailable [phone] Reason for Visit * Reason Comments Med Refill Encounter Details Date Type Department Care Team ([facility] st Contact Info) Description 03/20/2025 Refill [facility] CHC MED & PEDS [address] [place], [place] [phone] Kasey Taylor ANP [address] [place] [address] Primary insomnia; Chronic pain syndrome Social History Tobacco Use Types Packs/Day Years [...] the past 12 months, has t he [employer], gas, oil or water company threatened to [...] Description 04/10/2025 2:00 PM EDT Office Visit [facility] MEDICINE [address] [place] [address] Kasey Tayolr ANP [address] [place] [address] 04/25/2025 3:00 PM EDT Clinical Support [facility] CHC MED & PEDS [address] [place] [address] Shy Ordoñez, BONNIE 505 [place] [address] 05/19/2025 1:00 PM EST Office Visit [address] [address] Nandini Laurent MD [address] [place] [address] documented as of this encounter Visit Diagnoses Diagnosis Primary insomnia Persistent disorder of initiating or maintaining sleep Chronic pain syndrome documented in this encounter Additional Health Concerns Assessment Noted Time PHQ-9 Depression Total Score: 3 11/27/19 24 2:18 PM EDT documented as of this encounter Care Teams Bus Driver Supervisor Relationship Specialty Start Date End Date Kasey Taylor ANP [address] [place] [address] PCP - General Family Medicine 02/27/21 Ran Gallegos MD [address] [facility] [place] [address] Cardiology 06/17/24 documented as of this encounter
--- OUTSIDE RECORDS SUMMARY | 2025-03-24 09:38 | XMS_ITS | Encounter Summary ---
Author Organization [employer] Address [address] [place] [address] 7 [place] [address] Care Team Providers Care Baton Teacher Name Role Phone Kasey Taylor Primary Care Provider [phone] Ran Gallegos MD Unavailable [phone] Reason for Visit * Reason Onset Date Comments Med Refill 06/22/2023 Encounter Details Date Type Department Care Team (Late st Contact Info) Description 06/22/2023 Telephone [facility] MEDICINE [address] [place], [place] [phone] Kasey aTylor ANP [address] [place] [address] Med Refill Social History Tobacco Use Types [...] (Ultram) 50 MG tablet Please sent to [facility] - [place] - [id number] - [place] - [address] documented in this encounter Plan of Treatment Upcoming Encounters Date Type Department Care Team (Late st Contact Info) Description 04/10/2025 2:00 PM EDT Office Visit [facility] MEDICINE [address] [place] [address] Kasey Taylor ANP [address] [place] [address] 04/25/2025 3:00 PM EDT Clinical Support [facility] CHC MED & PEDS [address] [place] [address] Shy Ordoñez, BONNIE 505 [place] [address] 05/19/2025 1:00 PM EST Office Visit [address] [address] Nandini Laurent MD [address] [place] [address] documented as of this encounter Visit Diagnoses Not on filedocumented in this encounter Care Teams Baton Teacher Relationship Specialty Start Date End Date Kasey Taylor ANP [address] [place] [address] PCP - General Family Medicine 02/27/21 Ran [place] [address] Cardiology 06/17/24 documented as of this encounter
--- OUTSIDE RECORDS SUMMARY | 2025-03-24 09:38 | XMS_ITS | Encounter Summary ---
Author Organization [employer] Address [address] [place] [address] 7t [place] [address] Care Team Providers Care Sap Specialist Name Role Phone Kasey Taylor Primary Care Provider [phone] Ran Gallegos MD Unavailable [phone] Encounter Details Date Type Department Care Team (Late st Contact Info) Description 02/25/2023 Orders Only [facility] CHC MED & PEDS [address] [place] [address] Beverley Scott LPN Social History Tobacco Use Types Packs/Day Years [...] Description 04/10/2025 2:00 PM EDT Office Visit [facility] MEDICINE [address] [place], [place] [phone] Kasey Taylor ANP [address] [place] [address] 04/25/2025 3:00 PM EDT Clinical Support [facility] MED & PEDS [address] [place] [address] Shy Ordoñez, RN [address] [place] [address] 05/19/2025 1:00 PM EST Office Visit [facility] MEDICINE [address] [place] [address] Nandini Laurent MD [address] [place] [address] documented as of this encounter Visit Diagnoses Not on filedocumented in this encounter Care Teams Sap Specialist Relationship Specialty Start Date End Date Kasey Taylor ANP [address] [place] [address] PCP - General Family Medicine 02/27/21 Ran Gallegos MD [facility] [place] [address] Cardiology 06/17/24 documented as of this encounter
--- OUTSIDE RECORDS SUMMARY | 2025-03-24 09:38 | XMS_ITS | Clinical Summary ---
Author Organization [employer] Address [address] [place] [address] [address] [place] [address] Care Team Providers Care City Engineer Name Role Phone Kasey Taylor Primary Care Provider [phone] Ran Gallegos MD Unavailable [phone] Allergies Active Allergy Reactions Criticality Noted Date Comments Acetaminophen 03/17/2016 Other reaction(s): Nausea/Vomiting Oxycodone-Acetaminophen 03/17/2016 Other reaction(s): Nausea/Vomiting Medications clotrimazole (Lotrimin) 1 % creamIndication s:Rash Apply topically 2 times daily. 30 g 07/04/20 22 Active fluticasone (Flovent HFA) 220 MCG/ACT inhaler Inhale 2 puffs every 12 (twelve) hours. 12/17/19 19 Active Linzess 145 MCG capsule Take 145 mcg by mouth in the morning. 10/03/19 23 Active warfarin (Coumadin) 5 MG tablet TAKE 1 TO 2 TABLETS BY MOUTH DAILY DIRECTED BY THE [facility] 09/28/19 23 Active melatonin 3 MG tabletIndicatio ns:Primary insomnia TAKE 1 TABLET BY MOUTH 30 MINUTES TO 1 HOUR BEFORE BEDTIME 90 tablet 1 01/24/20 23 Active albuterol (2.5 MG/3ML) 0.083% nebulizer solution INHALE THE CONTENT OF 1 VIAL (3mls) VIA NEBULIZER machine EVERY 6 HOURS NEEDED 90 mL 1 02/26/20 23 Active triamcinolone (Kenalog) 0.1 % ointment Apply topically if needed in the morning and at bedtime for rash. 30 g 1 03/17/20 24 Active Folbee 2.5-25-1 MG tablet tabletIndicatio ns:Folate deficiency TAKE 1 TABLET BY MOUTH ONCE DAILY 90 tablet 1 04/01/20 24 Active pregabalin (Lyrica) 50 MG capsuleIndicati ons:Central stenosis of spinal canal,Foraminal stenosis of lumbar region,Foramina l stenosis of lumbosacral region TAKE 1 CAPSULE BY MOUTH 3 (THREE) TIMES A DAY 90 capsule 3 07/12/19 25 Active naloxone (Narcan) 4 mg/0.1 mL nasal spray Administer 1 spray (4 mg) into affected nostril(s) if needed for opioid reversal. May repeat every 2-3 minutes if needed, alternating nostrils, until medical assistance becomes available. 2 each 2 07/21/19 25 2025 Active nicotine polacrilex (Nicotine Mini) 2 MG lozengeIndicati ons:Cigarette nicotine dependence without complication Dissolve 1 lozenge (2 mg) in the mouth if needed for smoking cessation. Every 2 hours as needed in place of cigarette. 48 lozenge 1 10/18/19 25 Active aspirin (Aspirin Low Dose) 81 MG EC tabletIndicatio ns:Aortic valve disorder TAKE 1 TABLET BY MOUTH EVERY MORNING 90 tablet 1 11/12/19 25 Active albuterol (Ventolin HFA) 108 (90 Base) MCG/ACT inhalerIndicati ons:Mild asthma without complication, unspecified whether persistent INHALE TWO PUFFS BY MOUTH INTO THE LUNGS EVERY 4 TO 6 HOURS NEEDED 18 g 2 11/12/19 25 Active Diclofenac Sodium (Voltaren) 1 % gelIndications: Bilateral hip pain Apply up to 4x/d to affected joint(s) for pain/swelling 100 g 2 01/05/20 25 Active cyclobenzaprine (Flexeril) 10 MG tabletIndicatio ns:Bilateral hip pain Take 1 tablet (10 mg) by mouth 3 times daily for 10 days. 30 tablet 02/18/20 25 Active zolpidem (Ambien) 10 MG tabletIndicatio ns:Primary insomnia TAKE 1 TABLET BY MOUTH ONCE DAILY AT BEDTIME NEEDED 30 tablet 1 03/20/20 25 Active traMADol (Ultram) 50 MG tabletIndicatio ns:Chronic pain syndrome Take 1 tablet (50 mg) by mouth every 8 (eight) hours if needed for severe pain. 42 tablet 03/20/20 Active zolpidem (Ambien) 10 MG tabletIndicatio ns:Primary insomnia TAKE 1 TABLET BY MOUTH ONCE DAILY AT BEDTIME NEEDED 30 tablet 1 12/31/19 25 2024 Discontinued(R eorder (will not trigger notification to Pharmacy)) traMADol (Ultram) 50 MG tabletIndicatio ns:Chronic pain syndrome Take 1 tablet (50 mg) by mouth every 8 (eight) hours if needed for severe pain. 42 tablet 02/15/20 25 2024 Discontinued predniSONE (Deltasone) 20 MG tabletIndicatio ns:Bilateral hip pain Take 2 tablets (40 mg) by mouth Once per day for 5 days. 10 tablet 02/18/20 25 2024 traMADol (Ultram) 50 MG tabletIndicatio ns:Chronic pain syndrome Take 1 tablet (50 mg) by mouth every 8 (eight) hours if needed for severe pain. 42 tablet 03/02/20 25 2024 Discontinued(R eorder (will not trigger notification to Pharmacy)) predniSONE (Deltasone) 20 MG tabletIndicatio ns:Bilateral hip pain Take 2 tablets (40 mg) by mouth Once per day for 5 days. 10 tablet 03/13/20 25 2024 Active Problems Problem Noted Date Diagnosed Date Bilateral hip pain 02/17/2025 Assessment & Plan (03/13/2025 11:02 AM EDT): I will prescribe once again prednisone 40 mg for 5 days, extensive counseling done today I let her know this medication should not be taking continuously due to side effects including high blood pressure, high glucose, long-term prednisone can cause osteoporosis, weight gain, etc. I printed for patient orthopedics referral Advised to continue with physical therapy She is also taking tramadol but reports this is not helping with her hip pain Assessment & Plan (02/17/2025 1:07 PM EDT): Fibromyalgia? I will prescribe for her again 5 days course of prednisone to help her with his acute pain and I will add some muscle relaxer Flexeril 10 mg every 8 hours patient is aware of side effects somnolence she cannot drive while taking this medication I also order x-rays patient will be contacted with results [facility]DC (current) use of opiate analgesic 01/2024 Smoking 04/14/2024 Overview (04/14/2024): Smoking 3 cigs/d. Declines NRT. Aortic valve replaced 10/06/2022 Chronic pain syndrome 08/13/2022 Eczema 08/13/2022 Spinal stenosis of lumbar region 08/13/2022 Ingrowing toenail 08/13/2022 Aortic valve stenosis 07/19/2014 Overview (08/13/2022): Aortic valve stenosis Aortic valve disorder 05/23/2014 Asthma 06/18/2012 Insomnia 01/06/2012 Encounters Date Type Department Care Team Description 03/20/2025 Refill [facility] [address] [place] [address] Kasey Taylor ANP Primary insomnia; Chronic pain syndrome 03/20/2025 Refill [facility] [address] [place] [address] Kasey Taylor ANP Primary insomnia 03/20/2025 Refill [facility] [address] [place] [address] Kasey Taylor ANP Chronic pain syndrome 03/13/2025 10:20 AM EDT Office Visit [facility] [address] [place] [phone] Coretta Darby MD Bilateral hip pain 03/13/2025 Travel 03/10/2025 Refill [facility] [address] [place] [address] Kasey Taylor ANP Primary insomnia 03/02/2025 Telephone [facility] [address] [place] [address] Kasey Taylor ANP Med Refill 03/02/2025 Telephone [facility] [address] [place] [address] Kasey Taylor ANP Med Refill 03/02/2025 Refill [facility] [address] [place] [address] Kasey Taylor ANP Chronic pain syndrome 02/18/2025 Results Follow-Up [facility] [address] [place] [address] Coretta Darby MD XR Hip 2 or 3 Views Left 02/17/2025 9:40 AM EDT Office Visit [facility] [address] [address] Coretta Darby MD Bilateral hip pain 02/17/2025 Travel 02/14/2025 Refill [facility] [address] [place] [address] Kasey Taylor ANP Chronic pain syndrome 02/14/2025 Refill [facility] [address] [place] [address] Shy Ordoñez RN Chronic pain syndrome 02/14/[address] [address] Kaesy Taylor ANP Med Refill 02/14/[address] [address] Kasey Taylor ANP Med Refill 01/28/2025 Refill [facility] [address] [place] [address] Coretta Pascual MD Chronic pain syndrome 01/18/2025 3:15 PM EDT Clinical Support [facility] [address] [place] [address] Shy Ordoñez RN Chronic bilateral low back pain without sciatica 01/18/2025 Travel 01/16/[address] [address] Kasey Taylor ANP October recall 01/13/2025 Telephone [facility] [address] [place] [address] Shy Ordoñez RN 01/13/2025 Refill [facility] [address] [place] [address] Shy Ordoñez RN Chronic pain syndrome 01/13/[address] [address] Kasey Taylor ANP Med Refill 01/12/2025 Refill [facility] [address] [place] [address] Kasey Taylor ANP Chronic pain syndrome 01/09/2025 Telephone [facility] [address] [place] [address] Kasey Taylor ANP Appointment Request 01/05/[address] [phone] Maggie Blum, vehicle leasing and rental manager Order 01/04/2025 4:00 PM EDT Telemedicine [address] [address] Kasey Taylor ANP Bilateral hip pain (Primary Dx); Spinal stenosis of lumbar region with neurogenic claudication; Aortic valve stenosis, etiology of cardiac valve disease unspecified 01/04/2025 Travel 01/03/[address] [address] Kasey Taylor ANP CHART PREP 12/29/2024 Refill [facility] [address] [place] [address] Kasey Taylor ANP Primary insomnia 12/28/2024 Refill [facility] [address] [place] [address] Kasey Taylor ANP Chronic pain syndrome from Last 3 Months Immunizations Immunization Administration Dates Next Due Hep B, Unspecified 08/05/2007 Hep B, adult 01/08/2016 Influenza injectable quadriv alent IIV4 with preservative 04/08/2016,06/07/2015 Influenza injectable quadriv alent preservative free 06/12/2021,06/23/2019,07/01/2018 Influenza, IIV3, injectable 06/08/2014, 1 Influenza, Split (incl. anderson fied surface antigen) 03/08/2013 Influenza, Unspecified 08/05/2007,05/11/2002 Pneumococcal Conjugate PCV 20 10/17/2024 TD (adult), 2 Lf tetanus tox oid, preservative free, adsorbed 08/22/2021 Td (adult), unspecified 02/18/2006 Tdap 07/20/2009 Social History Tobacco Use Types Packs/Day Years Used Date Smoking Tobacco: Every Day Cigarettes Passive Smoke Exposure: Current Smokeless Tobacco: Never Tobacco Cessation:Ready to Q uit: Not Asked; Counseling Given: Not Answered Alcohol Use Standard Drinks/Week Comments Not Currently [...] Orientation Straight 05/05/2022 10 :20 AM EDT Last Filed Vital Signs Vital Sign Reading Time Taken Comments Blood Pressure 124/79 03/13/2025 10:00 AM EDT Pulse 72 03/13/2025 10:00 AM EDT Temperature 36.6 C (97.8 F) 03/13/2025 10:00 AM EDT Respiratory Rate 16 03/13/2025 10:00 AM EDT Oxygen Saturation 97% 03/13/2025 10:00 AM EDT Inhaled Oxygen Concentration - - Weight 85.4 kg (188 lb 3.2 oz) 03/13/2025 10:00 AM EDT Height 160 cm (5' 3 ) 10/17/2024 2:52 PM EDT Body Mass Index 33.34 10/17/2024 2:52 PM EDT Plan of Treatment Upcoming Encounters Date Type Department Care Team (Late st Contact Info) Description 04/10/2025 2:00 PM EDT Office Visit [facility] [address] [place] [address] Kasey Taylor ANP [address] [place] [address] 04/25/2025 3:00 PM EDT Clinical Support [facility] [address] [place] [address] Shy Ordoñez, RN [address] [place] [address] 05/19/2025 1:00 PM EST Office Visit [address] [address] Nandini Laurent MD [address] [place] [address] Health Maintenance Due Date Last Done Comments CT Colonography 1978 Colonoscopy 1978 Colorectal Cancer Screening 1978 FIT DNA/Cologuard 1978 FIT 1978 FOBT 1978 Sigmoidoscopy 1978 Family Planning (PISQ) 1993 Hepatitis B Vaccines (3 of 3 - 19+ 3-dose series) 03/04/2016 01/08/2016, 08/05/2007 Mammogram 10/03/2022 10/03/2020 Depression Screening 11/26/2024 11/27/2023, 11/27/19 24 COVID-19 Vaccine ( season) 2025 Influenza Vaccine (#1) 2025 , 06/23/2019, 07/01/2018, Additional history exists Alcohol/Substance Use Screening 04/14/2025 04/14/2024 Pap Smear 04/15/2025 04/15/2022, 01/27/2022 SDOH Screening 10/04/2025 10/04/2024 Disability Screening 10/17/2025 10/17/2024 Tobacco Screening 02/17/2026 02/17/2025 Lipid Panel 06/14/2026 06/14/2021, 04/03/2020 Cervical Cancer Screening 04/15/2027 HPV/Cotest 04/15/2027 04/15/2022, 04/05, 04/15/2022, Additional history exists Zoster Vaccines (1 of 2) 2028 DTaP/Tdap/Td Vaccines (3 - Td or Tdap) 08/22/2031 08/22/2021, 07/20/2009, 02/18/2006 RSV Patients and Patients Aged 60 years or older (1 - 1-dose 75+ series) 2053 HIV Screening Completed 06/14/2021 Hepatitis C Screening Completed 06/14/2021 Pneumococcal Vaccine: Pediatrics (0 to 5 Years) and At-Risk Patients (6 to 49) Years Completed 10/17/2024 HIB Vaccines Aged Out No [...] patient's age to complete this topic Meningococcal Vaccine Aged Out No nicho samira eligible based on patient's age to complete this topic RSV under 20 months Aged Out No longe r eligible based on patient's age to complete this topic Rotavirus Vaccines Aged Out No longer eligible based on patient's age to complete this topic Procedures Procedure Name Priority Date/Time Associated Diagnosis Comments XR HIP 2 OR 3 VIEWS LEFT Routine 02/17/2025 9:41 AM EDT Bilateral hip pain XR HIP 2 OR 3 VIEWS RIGHT Routine 02/17/2025 9:39 AM EDT Bilateral hip pain POCT JOHN-14 URINE DRUG SCREEN Routine 01/18/2025 3:24 PM EDT Chronic bilateral low back pain without sciatica HM PAP/HPV Routine 04/15/2022 ZZZ HISTORICAL HEPATITIS C AB W/REFL TO HCV RNA, QN, PCR Routine 06/14/2021 2:35 PM EST HIV 1/2 ANTIGEN/ANTIBODY, FOURTH GENERATION W/RFL Routine 06/14/2021 2:35 PM EST LIPID PANEL, STANDARD Routine 06/14/2021 2:35 PM EST MAMMOGRAM GENERIC Routine 10/03/2020 1:3 0 PM EDT from Last 3 Months or Most Recently Relevant to Health Maintenance Results * XR Hip 2 or 3 Views Left (02/17/2025 9:41 AM EDT) Anatomical Region Laterality Modality Lower Extremities, Hip Left Radiograp hic Imaging 02/17/2025 9:41 AM EDT Narrative 02/17/2025 12:29 PM EDT [address] [address] XRay Report Signed Patient: Kathy Suarez MR#: [id number] : 1980 Acct:[id number] Age/Sex: 44 / F ADM Date: 02/17/25 Loc: HO.HHCX Attending Dr: Coretta Li MD Ordering Physician: Corteta Darby MD Date of Service: 02/17/25 Procedure(s): XR hip LT min 2V Accession Number(s): [id number] cc: Coretta Darby MD EXAMINATION: XR HIP, LEFT CLINICAL INFORMATION: pain COMPARISON: December 17, 2023. TECHNIQUE: AP and oblique views of the left hip. FINDINGS: Marginal osteophyte formation is acetabulum. Mild sclerosis in the articular surface of the acetabulum. There is preservation of the joint space.. No acute cortical disruption or malalignment. No lytic or blastic lesions. XR/XR hip LT min 2V IMPRESSION: Mild osteoarthrosis/osteoarthritis, left hip. Electronically signed by: Prosper Garcia MD 02/17/2025 12:26 PM EDT RP Dictated By: Prosper Zepeda MD Signed By: <Electronically signed by Prosper Blum MD in OV> 02/17/25 1226 DD/ 0941 TD/TT: 02/17/25 1000 Ui Programmer: Procedure Note Donotuseinterpreter, Image - 02/17/[address] [address] XRay Report Signed Patient: Kathy Suarez#: [id number] : 1980Acct:[id number] Age/Sex: 44 / FADM Date: 02/17/25 Loc: HO.HHCX Attending Dr: Coretta Li MD Ordering Physician: Coretta Darby MD Date of Service: 02/17/25 Procedure(s): XR hip LT min 2V Accession Number(s): [id number] cc: Coretta Darby MD EXAMINATION: XR HIP, LEFT CLINICAL INFORMATION: pain COMPARISON: December 17, 2023. TECHNIQUE: AP and oblique views of the left hip. FINDINGS: Marginal osteophyte formation is acetabulum. Mild sclerosis in the articular surface of the acetabulum. There is preservation of the joint space.. No acute cortical disruption or malalignment. No lytic or blastic lesions. XR/XR hip LT min 2V IMPRESSION: Mild osteoarthrosis/osteoarthritis, left hip. Electronically signed by: Prosper Garcia MD 02/17/2025 12:26 PM EDT RP Dictated By: Prosper Zepeda MD Signed By: <Electronically signed by Prosper Blum MDin OV> 02/17/25 1226 DD/ 0941 TD/TT: 02/17/25 1000 Ui Programmer: Coretta Li MD IMG XR PROCEDURES Fin al Result * XR Hip 2 or 3 Views Right (02/17/2025 9:39 AM EDT) Anatomical Region Laterality Modality Lower Extremities, Hip Right Radiograp hic Imaging 02/17/2025 9:39 AM EDT Narrative 02/17/2025 12:27 PM EDT [facility] [address] [place] [address] XRay Report Signed Patient: Kathy Suarez MR#: [id number] : 1980 Acct:[id number] Age/Sex: 44 / F ADM Date: 02/17/25 Loc: HO.HHCX Attending Dr: Coretta Li MD Ordering Physician: Coretta Darby MD Date of Service: 02/17/25 Procedure(s): XR hip RT min 2V Accession Number(s): [id number] cc: Coretta Darby MD EXAMINATION: XR HIP, RIGHT CLINICAL INFORMATION: pain COMPARISON: December 17, 2023. TECHNIQUE: AP and oblique views of the right hip. FINDINGS: No acute cortical disruption or malalignment. Normal joint space. No lytic or blastic lesions. No subcutaneous emphysema. XR/XR hip RT min 2V IMPRESSION: Normal x-ray right hip. Electronically signed by: Prosper Garcia MD 02/17/2025 12:25 PM EDT RP Dictated By: Prosper Zepeda MD Signed By: <Electronically signed by Prosper Blum MD in OV> 02/17/25 1225 DD/ 0939 TD/TT: 02/17/25 1000 Ui Programmer: Procedure Note Donotuseinterpreter, Image - 02/17/[address] [address] XRay Report Signed Patient: Kathy Suarez#: [id number] : 1980Acct:[id number] Age/Sex: 44 / FADM Date: 02/17/25 Loc: HO.HHCX Attending Dr: Coretta Li MD Ordering Physician: Coretta Darby MD Date of Service: 02/17/25 Procedure(s): XR hip RT min 2V Accession Number(s): [id number] cc: Coretta Darby MD EXAMINATION: XR HIP, RIGHT CLINICAL INFORMATION: pain COMPARISON: December 17, 2023. TECHNIQUE: AP and oblique views of the right hip. FINDINGS: No acute cortical disruption or malalignment. Normal joint space. No lytic or blastic lesions. No subcutaneous emphysema. XR/XR hip RT min 2V IMPRESSION: Normal x-ray right hip. Electronically signed by: Prosper Garcia MD 02/17/2025 12:25 PM EDT RP Dictated By: Prosper Zepeda MD Signed By: <Electronically signed by Prosper Blum MDin OV> 02/17/25 1225 DD/ 0939 TD/TT: 02/17/25 1000 Ui Programmer: Coretta Li MD IMG XR PROCEDURES Fin al Result * POCT JOHN-14 Urine Drug Screen (01/18/2025 3:24 PM EDT) THC Negative Negative Cocaine Screen, Urine Negative Negative Opiate Screen, Urine Negative Negative Methamphetamine Screen Urine Negative Negative Amphetamine Screen, Urine Negative Negative Benzodiazepines Screen, Urine Negative Negative Barbiturate Screen, Urine Negative Negative Methadone Screen, Urine Negative Negative Buprenophine Screen, Urine Negative Negative TCA, Urine Negative Negative MDMA Urine Negative Negative ng/mL Oxycodone Screen, Urine Negative Negative Phencyclidine (PCP), Urine Negative Negative Propoxyphene, Urine Negative Negative Fentanyl, Urine Negative Negative Urine Urine specimen obtained by clean catch procedure / Unknown 01/18/2025 3:24 PM EDT Narrative Shy Ordoñez RN - 01/18/2025 3:24 PM EDT Internal Pass Control Lot# [id number] Exp: 05-05-26 Kasey DIETZ POINT OF CARE TEST ENTER/EDIT OR DERABLES Final Result * Hm Pap Smear (04/15/2022) Pap Negative for intraephithelial lesion or malignancy Negative for intraephithelial lesion or malignancy, Other HPV Undetected [facility] Provider HEALTH MAINTENANCE Final Result * HEPATITIS C AB W/REFL TO HCV RNA, QN, PCR (06/14/2021 2:35 PM EST) Pathologist [facility] HEPATITIS C ANTIBODY NON-REACT FLOR NON-REACT FLOR [facility] INDEX 0.01 <1.00 [facility] Comment: HCV antibody was non-reactive. There is no laboratory evidence of HCV infection. In most cases, no further action is required. However, if recent HCV exposure is suspected, a test for HCV RNA (test code 55272) is suggested. For additional information please refer to http://education.LifeScribe/faq/YMW31r9 (This link is being provided for informational/ educational purposes only.) 06/14/2021 2:35 PM EST Kasey Taylor ANP HISTORICAL/NON ORDERABLE LABS Fi nal Result [facility] [address] * HIV 1/2 ANTIGEN/ANTIBODY,FOURTH GENERATION W/RFL (06/14/2021 2:35 PM EST) Pathologist [facility] HIV-1/2 ANTIGEN AND ANTIBODIES, 4TH GENERATION W/ REFLEX NON-REACT FLOR NON-REACT FLOR [facility] Comment: HIV-1 antigen and HIV-1/HIV-2 antibodies were not detected. There is no laboratory evidence of HIV infection. PLEASE NOTE: This information has been disclosed to you from records whose confidentiality may be protected by state law. If your state requires such protection, then the state law prohibits you from making any further disclosure of the information without the specific written consent of the person to whom it pertains, or as otherwise permitted by law. A general authorization for the release of medical or other information is NOT sufficient for this purpose. For additional information please refer to http://CrowdSystems.LifeScribe/faq/QQD063 (This link is being provided for informational/ educational purposes only.) The performance of this assay has not been clinically validated in patients less than 2 years old. 06/14/2021 2:35 PM EST Kasey Taylor [facility] LAB BLOOD ORDERABLES Final Resul t [facility] [address] * (ABNORMAL) LIPID PANEL, STANDARD (06/14/2021 2:35 PM EST) Chol/HDLC Ratio 3.6 <5.0 (calc) [facility] Cholesterol, Total 150 <200 mg/dL [facility] HDL Cholesterol 42(L) > OR = 50 mg/dL [facility] LDL Cholesterol 86 mg/dL (calc) [facility] Comment: Reference range: <100 Desirable range <100 mg/dL for primary prevention; <70 mg/dL for patients with CHD or diabetic patients with > or = 2 CHD risk factors. LDL-C is now calculated using the Pranav-Bryant calculation, which is a validated novel method providing better accuracy than the Friedewald equation in the estimation of LDL-C. Pranav SALTER et al. XIMENA. 2013;310(19): 6193-9527 (http://education.TapFit.Sensegon/faq/EWF611) Non-HDL Cholesterol 108 <130 mg/dL (calc) [facility] Comment: For patients with diabetes plus 1 major ASCVD risk factor, treating to a non-HDL-C goal of <100 mg/dL (LDL-C of <70 mg/dL) is considered a therapeutic option. Triglycerides 123 <150 mg/dL [facility] 06/14/2021 2:35 PM EST us Kasey Claudia DIETZ LAB BLOOD ORDERABLES Final Resul t [facility] [address] * Mammography Report 1 (10/03/2020 1:30 PM EDT) Anatomical Region Laterality Modality Breast Bilateral Mammography 10/03/2020 1:30 PM EDT Narrative 10/03/2020 7:09 PM EDT Refer to the Notes tab for result details [facility] Procedure: Mammography Report 1 Procedure Note Provider, MD Guzman - 09/27/2022 Refer to the Notes tab for result details [facility] Procedure: Mammography Report 1 Morteza Salter DIGITAL STRATEGY DIRECTOR IMG BI PROCEDURES Final Res ult from Last 3 Months or Most Recently Relevant to Health Maintenance Insurance [address] [place], [place] [address] Care Teams City Engineer Relationship Specialty Start Date End Date Kasey Taylor ANP [address] [place] [address] PCP - General Family Medicine 02/27/21 Ran Gallegos MD [address] [place] [address] Cardiology 06/17/24
--- OUTSIDE RECORDS SUMMARY | 2025-03-24 09:38 | XMS_ITS | Encounter Summary ---
Author Organization [employer] Address [address] [place] [address] 7t [place] [address] Care Team Providers Care Networks Computer Consultant Name Role Phone Kasey Taylor Primary Care Provider [phone] Ran Gallegos MD Unavailable [phone] Reason for Visit * Reason Onset Date Comments Med Refill 03/20/2025 Encounter Details Date Type Department Care Team (Late st Contact Info) Description 03/20/2025 Refill [facility] 230 [place], [place] [phone] aKsey Taylor ANP 230 [place], [place] [phone] Chronic pain syndrome Social History Tobacco Use [...] encounter Miscellaneous Notes * Telephone Encounter - Malcolm Rosado - 03/20/2025 1:24 PM EDT TC from pt requesting medication refill. Medications needing refill : traMADol (Ultram) 50 MG tablet To be sent to: [facility] - [place], [place] - [id number] - [place] - [address] documented in this encounter Plan of Treatment Upcoming Encounters Date Type Department Care Team (Late st Contact Info) Description 04/10/2025 2:00 PM EDT Office Visit [facility] 230 [place], [place] [phone] Kasey Taylor ANP 230 [place] [address] 04/25/2025 3:00 PM EDT Clinical Support [facility] PEDS 505 [place] [address] Shy Ordoñez, BONNIE 505 [place] [address] 05/19/2025 1:00 PM EST Office Visit [facility] 230 [place] [address] Nandini Laurent MD 230 [place] [address] documented as of this encounter Visit Diagnoses Diagnosis Chronic pain syndrome documented in this encounter Additional Health Concerns Assessment Noted Time PHQ-9 Depression Total Score: 3 11/27/19 24 2:18 PM EDT documented as of this encounter Care Teams Networks Computer Consultant Relationship Specialty Start Date End Date Kasey Taylor ANP 230 [place] [address] PCP - General Family Medicine 02/27/21 Ran Gallegos MD [facility] [place] [address] Cardiology 06/17/24 documented as of this encounter
--- OUTSIDE RECORDS SUMMARY | 2025-03-24 09:38 | XMS_ITS | Clinical Summary ---
Author Organization [facility] Address [address] [address] Phone Care Team Providers Care Wire Dropper Name Role Phone Mayur Mendez INFORMATION SECURITY ANALYST Primary Care Provider [phone] Allergies No known active allergies Active Problems [...] file Medical Devices Not on file Insurance [facility] [place] [address] [address] [place] [address] [address] [facility] [address] [address] [place] [address] [place] [address] [facility] Care Teams Wire Dropper Relationship Specialty Start Date End Date Mayur Mendez NP [address] [place] [address] PCP - General Family Medicine 05/24/14 Additional Source Comments The information contained in this document represents components of the legal health record. It is not the complete legal health record.[facility]
--- OUTSIDE RECORDS SUMMARY | 2025-03-24 09:38 | XMS_ITS | Encounter Summary ---
Author Organization [employer] Address [address] [facility] 7t [place] [address] Care Team Providers Care Nuclear Licensing Engineer Name Role Phone Kasey Taylor Primary Care Provider [phone] Ran Gallegos MD Unavailable Reason for Visit * Reason Comments Med Refill Encounter Details Date Type Department Care Team ([facility] st Contact Info) Description 11/04/2024 Refill [facility] 230 [place], [place] [phone] Kasey Taylor ANP 230 [place], [place] [phone] Mild asthma without complication, unspecified whether persistent Social History Tobacco Use Types Packs/Day Years [...] the past 12 months, has t he [employer] gas, oil or water company threatened to [...] Description 04/10/2025 2:00 PM EDT Office Visit [facility] MEDICINE [address] [place] [address] Kasey Taylor ANP 230 [place] [address] 04/25/2025 3:00 PM EDT Clinical Support [facility] PEDS 505 [place], [place] [phone] Shy Ordoñez, RN 505 [place] [address] 05/19/2025 1:00 PM EST Office Visit [facility]INE [address] [place] [address] Nandini Laurent MD [address] [place] [address] documented as of this encounter Visit Diagnoses Diagnosis Mild asthma without complication, unspecified whether persistent documented in this encounter Additional Health Concerns Assessment Noted Time PHQ-9 Depression Total Score: 3 11/27/19 24 2:18 PM EDT documented as of this encounter Care Teams Nuclear Licensing Engineer Relationship Specialty Start Date End Date Kasey Taylor ANP 230 [place] [address] PCP - General Family Medicine 02/27/21 Ran Gallegos MD 21 [place] [address] Cardiology 06/17/24 documented as of this encounter
--- OUTSIDE RECORDS SUMMARY | 2025-03-24 09:38 | XMS_ITS | Encounter Summary ---
Author Organization [email or web address] Address [address] [place] [address] 7t [place] [address] Care Team Providers Care Ecological Technical Officer Name Role Phone Kasey Taylor Primary Care Provider [phone] Ran Gallegos MD Unavailable [phone] Encounter Details Date Type Department Care Team (Late st Contact Info) Description 08/12/2022 Telephone [facility] MEDICINE [address] [place] [address] Kasey Taylor ANP 230 [place] [address] Social History Tobacco Use Types Packs/Day Years Used Date Smoking Tobacco: Every Day Cigarettes Smokeless Tobacco: Never Comments Unknown Sex and Gender Information Value [...] Description 04/10/2025 2:00 PM EDT Office Visit [facility] [address] [place] [address] Kasey Talyor ANP 230 [place] [address] 04/25/2025 3:00 PM EDT Clinical Support [facility] MED [facility] PEDS 505 [place] [address] Shy Ordoñez, RN 505 [place] [address] 05/19/2025 1:00 PM EST Office Visit [facility]INE 230 [place] [address] Nandini Laurent MD [address] [place] [address] documented as of this encounter Visit Diagnoses Not on filedocumented in this encounter Care Teams Ecological Technical Officer Relationship Specialty Start Date End Date Kasey Taylor ANP [address] [place] [address] PCP - General Family Medicine 02/27/21 Ran Gallegos MD [facility] [place] [address] Cardiology 06/17/24 documented as of this encounter
--- OUTSIDE RECORDS SUMMARY | 2025-03-24 09:38 | XMS_ITS | Encounter Summary ---
Author Organization [employer] Address [address] [place] [address] 7t [place] [address] Care Team Providers Care Carbide Powder Processor Name Role Phone Kasey Taylor Primary Care Provider [phone] Ran Gallegos MD Unavailable [phone] Reason for Visit * Reason Comments Med Refill Encounter Details Date Type Department Care Team (Late Contact Info) Description 09/10/2023 Refill [facility] MED[facility]INE [address] [place] [address] Kasey Taylor ANP [address] [place] [address] Social History Tobacco Use Types Packs/Day Years [...] Encounters Date Type Department Care Team (Late Contact Info) Description 04/10/2025 2:00 PM EDT Office Visit [facility] MED[facility]INE [address] [place] [address] Kasey Taylor ANP [address] [place] [address] [phone] 04/25/2025 3:00 PM EDT Clinical Support [facility] MED [facility] PEDS [address] [place] [address] Shy Ordoñez, RN [address] [place] [address] 05/19/2025 1:00 PM EST Office Visit [facility] MED[facility]INE 230 [place] [address] Nandini Laurent MD 230 [place] [address] documented as of this encounter Visit Diagnoses Not on filedocumented in this encounter Care Teams Carbide Powder Processor Relationship Specialty Start Date End Date Kasey Taylor ANP 230 [place] [address] PCP - General Family Medicine 02/27/21 Ran [place] [address] Cardiology 06/17/24 documented as of this encounter
--- OUTSIDE RECORDS SUMMARY | 2025-03-24 09:38 | XMS_ITS | Encounter Summary ---
Author Organization [employer] Address 75 [facility] 7t [place] [address] Care Team Providers Care Black Mill Operator Name Role Phone Kasey Taylor Primary Care Provider [phone] Ran Gallegos MD Unavailable [phone] Reason for Visit * Reason Onset Date Comments Med Refill 03/02/2025 Encounter Details Date Type Department Care Team (Late st Contact Info) Description 03/02/2025 Telephone [facility] 230 [place], [place] [phone] Kasey Taylor ANP 230 [place], [place] [phone] Med Refill Social History Tobacco Use Types [...] encounter Miscellaneous Notes * Telephone Encounter - Uriel Koehler - 03/02/2025 3:47 PM EDT TC from pt requesting medication refill. Medications needing refill : traMADol (Ultram) 50 MG tablet To be sent to: [facility] - [place], [place] - [id number] - [place] - [address] documented in this encounter Plan of Treatment Upcoming Encounters Date Type Department Care Team (Late st Contact Info) Description 04/10/2025 2:00 PM EDT Office Visit [facility] 230 [place], [place] [phone] Kasey Taylor ANP 230 [place] [address] 04/25/2025 3:00 PM EDT Clinical Support [facility] MED [facility] PEDS [address] [place] [address] Shy Ordoñez, RN 505 [place] [address] 05/19/2025 1:00 PM EST Office Visit [facility] 230 [place] [address] Nandini Laurent MD 230 [place] [address] documented as of this encounter Visit Diagnoses Not on filedocumented in this encounter Additional Health Concerns Assessment Noted Time PHQ-9 Depression Total Score: 3 11/27/19 24 2:18 PM EDT documented as of this encounter Care Teams Black Mill Operator Relationship Specialty Start Date End Date Kasey Taylor ANP [address] [place] [address] PCP - General Family Medicine 02/27/21 [place] [address] Cardiology 06/17/24 documented as of this encounter
--- OUTSIDE RECORDS SUMMARY | 2025-03-24 09:38 | XMS_ITS | Clinical Summary ---
Author Organization [facility] Address [address] [place] [address] Phone Care Team Providers Care Solar Lab Technician Name Role Phone Kasey Taylor NP Primary Care Provider [phone] Allergies No known active allergies Medical History [...] Screening 06/08/2022 Breast Cancer Screening 10/03/2022 10/03/2020 Depression Screening 07/06/2024 COVID-19 Vaccine ( - season) 2025 Influenza Vaccine (#1) 2025 , 06/23/2019, 07/01/2018, Additional history exists Cholesterol Screening (Lipid Panel) 06/14/2026 06/14/2021 DTaP,Tdap,and Td Vaccines (4 - Td or Tdap) 08/22/2031 08/22/2021, 07/20/2009, 02/18/2006 RSV Immunization Adult Patients (1 - 1-dose 75+ series) 2053 HIV Screening Completed 06/14/2021 Pneumococcal Vaccine: Pediatrics [...] topic Insurance MEDICAID - [place] Care Teams Solar Lab Technician Relationship Specialty Start Date End Date Kasey Taylor NP [address] [place] [phone] PCP - General 11/06/23
--- OUTSIDE RECORDS SUMMARY | 2025-03-24 09:38 | XMS_ITS | Encounter Summary ---
Author Organization [employer] Address [address] [place] [address] 7t [place] [address] Care Team Providers Care Audio Visual Aide Name Role Phone Kasey Taylor Primary Care Provider [phone] Ran Gallegos MD Unavailable [phone] Reason for Visit * Reason Onset Date Comments Med Refill 09/10/2022 Encounter Details Date Type Department Care Team (Late st Contact Info) Description 09/10/2022 Telephone [facility] MEDICINE 230 [place], [place] [phone] Kasey Taylor ANP 230 [place], [place] [phone] Med Refill Social History Tobacco Use Types [...] suspected to have Coronavirus/COVID-19? No / Unsure 09/08/2022 8:38 AM EST documented as of this encounter Miscellaneous Notes * Telephone Encounter - Evie Carreno - 09/10/2022 9:53 AM EST Tc from pt requesting med refill for medication traMADol (Ultram) 50 MG tablet. documented in this encounter Plan of Treatment Upcoming Encounters Date Type Department Care Team (Late st Contact Info) Description 04/10/2025 2:00 PM EDT Office Visit [facility] MEDICINE [address] [place] [address] Kasey Taylor ANP 230 [place] [address] 04/25/2025 3:00 PM EDT Clinical Support [facility] MED [facility] PEDS 505 [place], [place] [phone] Shy Ordoñez, BONNIE 505 [place], [place] [phone] 05/19/2025 1:00 PM EST Office Visit [address] [address] Nandini Laurent MD [address] [place] [address] documented as of this encounter Visit Diagnoses Not on filedocumented in this encounter Care Teams Audio Visual Aide Relationship Specialty Start Date End Date Kasey Taylor ANP [address] [place] [address] PCP - General Family Medicine 02/27/21 Ran Gallegos MD [facility] [place] [address] Cardiology 06/17/24 documented as of this encounter
--- OUTSIDE RECORDS SUMMARY | 2025-03-24 09:38 | XMS_ITS | Encounter Summary ---
Author Organization [employer] Address [address] [place] [address] 7t [place] [address] Care Team Providers Care Shucker Name Role Phone Kasey Taylor Primary Care Provider [phone] Ran Gallegos MD Unavailable [phone] Reason for Visit * Reason Comments Med Refill Encounter Details Date Type Department Care Team (Late Contact Info) Description 12/11/2022 Refill [facility] MED [facility] PEDS 505 [place], [place] [phone] Kasey Taylor ANP [address] [place] [address] [phone] Mild asthma without complication, unspecified whether persistent [...] Description 04/10/2025 2:00 PM EDT Office Visit [facility] MEDICINE [address] [place] [phone] Kasey Taylor ANP 230 [place], [place] [phone] 04/25/2025 3:00 PM EDT Clinical Support [facility] 505 [place] [address] Shy Ordoñez, BONNIE 505 [place] [address] 05/19/2025 1:00 PM EST Office Visit [facility]INE 230 [place] [address] Nandini Laurent MD 230 [place] [address] documented as of this encounter Visit Diagnoses Diagnosis Mild asthma without complication, unspecified whether persistent documented in this encounter Care Teams Shucker Relationship Specialty Start Date End Date Kasey Taylor ANP 230 [place] [address] PCP - General Family Medicine 02/27/21 [place] [address] Cardiology 06/17/24 documented as of this encounter
--- OUTSIDE RECORDS SUMMARY | 2025-03-24 09:38 | XMS_ITS | Encounter Summary ---
Author Organization [email or web address] Address [address] [place] [address] 7t [place] [address] Care Team Providers Care Logistics Service Representative Name Role Phone Kasey Taylor Primary Care Provider [phone] Ran Gallegos MD Unavailable [phone] Reason for Visit * Reason Comments Med Refill Encounter Details Date Type Department Care Team (Late Contact Info) Description 03/24/2023 Refill [facility] MED & PEDS 505 [place], [place] [phone] Kasey Taylor ANP [address] [place] [address] [phone] Mild asthma without complication, unspecified whether persistent [...] Description 04/10/2025 2:00 PM EDT Office Visit [facility] MEDICINE [address] [place] [address] [phone] Kasey Taylor ANP 230 [place], [place] [phone] 04/25/2025 3:00 PM EDT Clinical Support [facility] MED [facility] PEDS 505 [place] [address] Shy Ordoñez, BONNIE 505 [place] [address] 05/19/2025 1:00 PM EST Office Visit [facility] MEDICINE 230 [place] [address] Nandini Laurent MD 230 [place] [address] documented as of this encounter Visit Diagnoses Diagnosis Mild asthma without complication, unspecified whether persistent documented in this encounter Care Teams Logistics Service Representative Relationship Specialty Start Date End Date Kasey Taylor ANP 230 [place] [address] PCP - General Family Medicine 02/27/21 Ran [place] [address] Cardiology 06/17/24 documented as of this encounter
--- OUTSIDE RECORDS SUMMARY | 2025-03-24 09:38 | XMS_ITS | Encounter Summary ---
Author Organization [employer] Address [address] [place] [address] 7t [place] [address] Care Team Providers Care Geothermal Operations Engineer Name Role Phone Kasey Taylor Primary Care Provider [phone] Ran Gallegos MD Unavailable [phone] Encounter Details Date Type Department Care Team (Late st Contact Info) Description 08/11/2022 Orders Only [facility] MED & PEDS 505 [place] [address] Beverley Scott LPN Social History Tobacco Use [...] Description 04/10/2025 2:00 PM EDT Office Visit [facility] MEDICINE 230 [place] [address] Kasey Taylor ANP 230 [place] [address] 04/25/2025 3:00 PM EDT Clinical Support [facility] MED [facility] PEDS 505 [place] [address] Shy Ordoñez, RN 505 [place] [address] 05/19/2025 1:00 PM EST Office Visit [facility] MEDICINE 230 [place] [address] Nandini Laurent MD 230 [place] [address] documented as of this encounter Visit Diagnoses Not on filedocumented in this encounter Care Teams Geothermal Operations Engineer Relationship Specialty Start Date End Date Kasey Taylor ANP 230 [place] [address] PCP - General Family Medicine 02/27/21 Ran [place] [address] Cardiology 06/17/24 documented as of this encounter
--- OUTSIDE RECORDS SUMMARY | 2025-03-24 09:38 | XMS_ITS | Encounter Summary ---
Author Organization [employer] Address [address] [place] [address] 7t [place] [address] Care Team Providers Care Dietary Services Director Name Role Phone Kasey Taylor Primary Care Provider [phone] Ran Gallegos MD Unavailable [phone] Reason for Visit * Reason Onset Date Comments Med Refill 02/14/2025 Encounter Details Date Type Department Care Team (Late st Contact Info) Description 02/14/2025 Telephone [facility] MEDICINE 230 [place], [place] [phone] Kasey Taylor ANP 230 [place], [place] [phone] Med Refill Social History Tobacco Use Types [...] encounter Miscellaneous Notes * Telephone Encounter - Matthieu Kelley - 02/14/2025 10:43 AM EDT TC from pt requesting medication refill. Medications needing refill: traMADol (Ultram) 50 MG tablet To be sent to: [facility] - [place], [place] - [id number] - [place], [place] - [address] documented in this encounter Plan of Treatment Upcoming Encounters Date Type Department Care Team (Late st Contact Info) Description 04/10/2025 2:00 PM EDT Office Visit [facility] MEDICINE 230 [place] [address] Kasey Taylor ANP 230 [place] [address] 04/25/2025 3:00 PM EDT Clinical Support [facility] MED [facility] PEDS 505 [place] [address] Shy Ordoñez, BONNIE 505 [place] [address] 05/19/2025 1:00 PM EST Office Visit [facility] MEDICINE 230 [place] [address] Nandini Laurent MD 230 [place] [address] documented as of this encounter Visit Diagnoses Not on filedocumented in this encounter Additional Health Concerns Assessment Noted Time PHQ-9 Depression Total Score: 3 11/27/19 24 2:18 PM EDT documented as of this encounter Care Teams Dietary Services Director Relationship Specialty Start Date End Date Kasey Taylor ANP 230 [place] [address] PCP - General Family Medicine 02/27/21 [place] [address] Cardiology 06/17/24 documented as of this encounter
--- OUTSIDE RECORDS SUMMARY | 2025-03-24 09:39 | XMS_ITS | Encounter Summary ---
Author Organization [employer] Address [address] [place] [address] 7 [place] [address] Care Team Providers Care Coagulating Drying Supervisor Name Role Phone Kasey Taylor Primary Care Provider [phone] Ran Gallegos MD Unavailable Reason for Visit * Reason Onset Date Comments Med Refill 09/28/2023 Encounter Details Date Type Department Care Team (Late st Contact Info) Description 09/28/2023 Telephone [facility] MEDICINE 230 [place], [place] [phone] Kasey Taylor ANP 230 [place], [place] [phone] Med Refill Social History Tobacco Use Types [...] * Telephone Encounter - Matthieu Kelley - 09/28/2023 2:20 PM EDT TC from pt requesting medication refill. Medications needing refill: traMADol (Ultram) 50 MG tablet To be sent to: [facility] - [place], [place] documented in this encounter Plan of Treatment Upcoming Encounters Date Type Department Care Team (Late st Contact Info) Description 04/10/2025 2:00 PM EDT Office Visit [facility] MEDICINE [address] [place] [address] Kasey Taylor ANP 230 [place] [address] 04/25/2025 3:00 PM EDT Clinical Support [facility] MED [facility] PEDS 505 [place], [place] [phone] Shy Ordoñez, RN 505 [place], [place] 05/19/2025 1:00 PM EST Office Visit [address] [address] Nandini Laurent MD 230 [place] [address] documented as of this encounter Visit Diagnoses Not on filedocumented in this encounter Care Teams Coagulating Drying Supervisor Relationship Specialty Start Date End Date Kasey Taylor ANP [address] [place] [address] PCP - General Family Medicine 02/27/21 [place] [address] Cardiology 06/17/24 documented as of this encounter
--- OUTSIDE RECORDS SUMMARY | 2025-03-24 09:39 | XMS_ITS | Encounter Summary ---
Author Organization [employer] Address [address] [place] [address] 7 [place] [address] Care Team Providers Care Projection Technician Name Role Phone Kasey Taylor Primary Care Provider [phone] Ran Gallegos MD Unavailable [phone] Reason for Visit * Reason Comments Med Refill Encounter Details Date Type Department Care Team ([facility] st Contact Info) Description 03/04/[address] [facility] MEDICINE 230 [place] [address] Coretta Pascual MD 230 [place] [address] Chronic pain syndrome Social History Tobacco Use Types Packs/Day Years Used Date Smoking Tobacco: Every Day Cigarettes Passive Smoke Exposure: Current Smokeless Tobacco: Never Alcohol Use Standard Drinks/Week Comments Not Currently 0 (1 standard drink = 0.6 oz pur e alcohol) Depression Answer Date Recorded Patient Health Questionnaire-9 Score 3 11/27/2023 Patient Health Questionnaire-9 Score 3 11/27/2023 Last PHQ-9: Questionnaire Data Not on file 0 11/27/2023 Housing Stability Answer Date Recorded What is your housing situation today? I have crissy anel 11/27/[address] you li [...] Recorded Patient Health Questionnaire-2 Score 2 11/27/2023 Comments Unknown Sex and Gender Information Value [...] PM EDT Office Visit [facility] MEDICINE [address] [place] [address] Kasey Taylor ANP [address] [place] [address] 04/25/2025 3:00 PM EDT Clinical Support [facility] MED & PEDS 505 [place] [address] Shy Ordoñez, BONNIE 505 [place] [address] 05/19/2025 1:00 PM EST Office Visit [address] [address] Nandini Laurent MD 230 [place] [address] documented as of this encounter Visit Diagnoses Diagnosis Chronic pain syndrome documented in this encounter Additional Health Concerns Assessment Noted Time PHQ-9 Depression Total Score: 3 11/27/19 2:18 PM EDT documented as of this encounter Care Teams Projection Technician Relationship Specialty Start Date End Date Kasey Taylor ANP [address] [place] [address] PCP - General Family Medicine 02/27/21 Ran Gallegos MD 21 [facility] [place] [address] Cardiology 06/17/24 documented as of this encounter
--- OUTSIDE RECORDS SUMMARY | 2025-03-24 09:39 | XMS_ITS | Encounter Summary ---
Author Organization [employer] Address [address] [place] [address] 7t [place] [address] Care Team Providers Care Auto Body Repair Estimator Name Role Phone Kasey Taylor Primary Care Provider [phone] Ran Gallegos MD Unavailable [phone] Encounter Details Date Type Department Care Team (Late st Contact Info) Description 06/06/2022 Orders Only [facility] MED & PEDS [address] [place] [address] Kasey Taylor ANP [address] [place] [address] Primary insomnia Social History Tobacco Use Types [...] 2:00 PM EDT Office Visit [facility] MEDICINE [address] [place] [address] Kasey Taylor ANP 230 [place] [address] 04/25/2025 3:00 PM EDT Clinical Support [facility] MED & PEDS [address] [place] [address] Shy Ordoñez, BONNIE 505 [place] [address] 05/19/2025 1:00 PM EST Office Visit [facility] MEDICINE [address] [place] [address] Nandini Laurent MD [address] [place] [address] documented as of this encounter Visit Diagnoses Diagnosis Primary insomnia Persistent disorder of initiating or maintaining sleep documented in this encounter Care Teams Auto Body Repair Estimator Relationship Specialty Start Date End Date Kasey Taylor ANP [address] [place] [address] PCP - General Family Medicine 02/27/21 Ran Gallegos MD [facility] [place] [address] Cardiology 06/17/24 documented as of this encounter
--- OUTSIDE RECORDS SUMMARY | 2025-03-24 09:39 | XMS_ITS | Encounter Summary ---
Author Organization [employer] Address [address] [place] [address] 7t [place] [address] Care Team Providers Care Ortho Assistant Name Role Phone Kasey Taylor Primary Care Provider [phone] Ran Gallegos MD Unavailable [phone] Reason for Visit * Reason Onset Date Comments Med Refill 05/12/2024 Encounter Details Date Type Department Care Team (Late st Contact Info) Description 05/12/2024 Telephone [facility] MEDICINE 230 [place], [place] [phone] Kasey Taylor ANP 230 [place], [place] [phone] Med Refill Social History Tobacco Use Types [...] the past 12 months, has t he [employer] gas, oil or water company threatened to [...] encounter Miscellaneous Notes * Telephone Encounter - Trenton Teresa - 05/12/2024 10:08 AM EST TC from pt requesting medication refill. Medications needing refill : traMADol (Ultram) 50 MG tablet warfarin (Coumadin) 5 MG tablet zolpidem (Ambien) 10 MG tablet To be sent to: [facility] - [place], [place] - [phone] - [place] - [address] documented in this encounter Plan of Treatment Upcoming Encounters Date Type Department Care Team ([facility] st Contact Info) Description 04/10/2025 2:00 PM EDT Office Visit [facility]INE [address] [place] [address] Kasey Taylor ANP [address] [place] [address] 04/25/2025 3:00 PM EDT Clinical Support [facility] CH[facility] MED & PEDS 505 [place] [address] Shy Ordoñez, BONNIE 505 [place] [address] 05/19/2025 1:00 PM EST Office Visit [facility]INE [address] [place] [address] Nandini Laurent MD [address] [place] [address] documented as of this encounter Visit Diagnoses Not on filedocumented in this encounter Additional Health Concerns Assessment Noted Time PHQ-9 Depression Total Score: 3 11/27/19 24 2:18 PM EDT documented as of this encounter Care Teams Ortho Assistant Relationship Specialty Start Date End Date Kasey Taylor ANP [address] [place] [address] PCP - General Family Medicine 02/27/21 Ran Gallegos MD [facility] [address] Cardiology 06/17/24 documented as of this encounter
--- OUTSIDE RECORDS SUMMARY | 2025-03-24 09:39 | XMS_ITS | Encounter Summary ---
Author Organization [employer] Address [address] [place] [address] 7 [place] [address] Care Team Providers Care Aviation Electronic Warfare Operator Name Role Phone Kasey Taylor Primary Care Provider [phone] Ran Gallegos MD Unavailable [phone] Reason for Visit * Reason Onset Date Comments Medication Question 09/11/2023 Encounter Details Date Type Department Care Team (Late st Contact Info) Description 09/11/2023 Telephone [facility] MEDICINE 230 [place], [place] [phone] Kasey Taylor ANP 230 [place], [place] [phone] Medication Question Social History Tobacco Use Types Packs/Day Years [...] encounter Miscellaneous Notes * Telephone Encounter - MIRELA Pedraza - 09/15/2023 5:19 PM EDT Yes, have left message for pharmacist. * Telephone Encounter - Doug Mari - 09/11/2023 4:24 PM EST Tc from [facility] stating that medication FaBB 2.2-25-1 MG tablet is not available that it may be discontinued but is requesting if it can be substituted for Folbee or Foltex 2.2 mg Please contact pharmacy @ [phone] documented in this encounter Plan of Treatment Upcoming Encounters Date Type Department Care Team (Late st Contact Info) Description 04/10/2025 2:00 PM EDT Office Visit [facility] MEDICINE [address] [place] [address] Kasey Taylor ANP 230 [place] [address] 04/25/2025 3:00 PM EDT Clinical Support [facility] CH[facility] MED & PEDS 505 [place] [address] Shy Ordoñez, BONNIE 505 [place] [address] 05/19/2025 1:00 PM EST Office Visit [address] [address] Nandini Laurent MD 230 [place] [address] documented as of this encounter Visit Diagnoses Not on filedocumented in this encounter Care Teams Aviation Electronic Warfare Operator Relationship Specialty Start Date End Date Kasey Taylor ANP [address] [place] [address] PCP - General Family Medicine 02/27/21 [place] [address] Cardiology 06/17/24 documented as of this encounter
--- OUTSIDE RECORDS SUMMARY | 2025-03-24 09:39 | XMS_ITS | Encounter Summary ---
Author Organization [employer] Address [address] [place] [address] 7t [place] [address] Care Team Providers Care Visor Installer Name Role Phone Kasey Taylor Primary Care Provider [phone] Ran Gallegos MD Unavailable Reason for Visit * Reason Onset Date Comments Med Refill 02/14/2025 Encounter Details Date Type Department Care Team (Late st Contact Info) Description 02/14/2025 Telephone [facility] MEDICINE 230 [place], [place] [phone] Kasey Taylor ANP 230 [place], [place] [phone] Med Refill Social History Tobacco Use Types [...] Telephone Encounter - Beverley Scott LPN - 02/14/2025 10:55 AM EDT TAILERCPA checked on 02/14/25 Ambien last filled on 01/12/25 and has 1 refill left. Please advise patient to call the pharmacy. * Telephone Encounter - Matthieu Kelley - 02/14/2025 10:44 AM EDT TC from pt requesting medication refill. Medications needing refill: zolpidem (Ambien) 10 MG tablet To be sent to: [facility] - [place] - [phone] - [place] - [address] documented in this encounter Plan of Treatment Upcoming Encounters Date Type Department Care Team (Late st Contact Info) Description 04/10/2025 2:00 PM EDT Office Visit [facility] MEDICINE 230 [facility] [place] [address] Kasey Taylor ANP 230 [place], [place] 04/25/2025 3:00 PM EDT Clinical Support [facility] CHC MED & PEDS 505 [place], [place] [phone] Shy Ordoñez, RN [address] [place], [place] 05/19/2025 1:00 PM EST Office Visit [facility] [place] [address] Nandini Laurent MD 230 [place], [place] documented as of this encounter Visit Diagnoses Not on filedocumented in this encounter Additional Health Concerns Assessment Noted Time PHQ-9 Depression Total Score: 3 11/27/19 24 2:18 PM EDT documented as of this encounter Care Teams Visor Installer Relationship Specialty Start Date End Date Kasey Taylor ANP 230 [facility] [place] PCP - General Family Medicine 02/27/21 Ran [place] [address] Cardiology 06/17/24 documented as of this encounter
--- OUTSIDE RECORDS SUMMARY | 2025-03-24 09:39 | XMS_ITS | Encounter Summary ---
Author Organization [employer] Address [address] [facility] 7t [place] [address] Care Team Providers Care Pipe Processor Name Role Phone Kasey Taylor Primary Care Provider [phone] Ran Gallegos MD Unavailable [phone] Reason for Visit * Reason Comments Med Refill Encounter Details Date Type Department Care Team ([facility] st Contact Info) Description 02/14/[address] [facility] CHC MED & PEDS [address] [place], [place] [phone] Kasey Taylor ANP 230 [place] [address] Chronic pain syndrome Social History Tobacco Use [...] the past 12 months, has t he [employer], gas, oil or water company threatened to [...] Description 04/10/2025 2:00 PM EDT Office Visit [facility] MEDICINE [address] [place] [address] Kasey Taylor ANP 230 [place] [address] 04/25/2025 3:00 PM EDT Clinical Support [facility] CH[facility] MED & PEDS 505 [place] [address] Shy Ordoñez, BONNIE 505 [place] [address] 05/19/2025 1:00 PM EST Office Visit [facility] MEDICINE [address] [place] [address] Nandini Laurent MD 230 [place] [address] documented as of this encounter Visit Diagnoses Diagnosis Chronic pain syndrome documented in this encounter Additional Health Concerns Assessment Noted Time PHQ-9 Depression Total Score: 3 11/27/19 24 2:18 PM EDT documented as of this encounter Care Teams Pipe Processor Relationship Specialty Start Date End Date Kasey Taylor ANP [address] [place] [address] PCP - General Family Medicine 02/27/21 Ran Gallegos MD [facility] [place] [address] Cardiology 06/17/24 documented as of this encounter
--- OUTSIDE RECORDS SUMMARY | 2025-03-24 09:39 | XMS_ITS | Encounter Summary ---
Author Organization [employer] Address [address] [place] [address] 7t [place] [address] Care Team Providers Care Fueler Name Role Phone Kasey Taylor Primary Care Provider [phone] Ran Gallegos MD Unavailable [phone] Reason for Visit * Reason Onset Date Comments Medication Question 03/10/2024 Encounter Details Date Type Department Care Team ([facility] st Contact Info) Description 03/10/2024 Telephone [facility] MEDICINE [address] [place], [place] [phone] Kasey Taylor ANP 230 [place], [place] [phone] Medication Question Social History Tobacco Use Types [...] * Telephone Encounter - Matthieu Kelley - 03/10/2024 10:11 AM EDT Tc from pt calling in regards to traMADol (Ultram) 50 MG tablet stating she only received 21 tablets which will not last her for the full month so she is requesting a call back to clarify. Please contact pt at [phone]. (Bruneian Speaker) documented in this encounter Plan of Treatment Upcoming Encounters Date Type Department Care Team ([facility] st Contact Info) Description 04/10/2025 2:00 PM EDT Office Visit [facility] MEDICINE [address] [place] [address] Kasey Taylor ANP 230 [place] [address] 04/25/2025 3:00 PM EDT Clinical Support [facility] CHC MED & PEDS 505 [place] [address] Shy Ordoñez, BONNIE 505 [place] [address] 05/19/2025 1:00 PM EST Office Visit [facility] 230 [place] [address] Nandini Laurent MD 230 [place] [address] documented as of this encounter Visit Diagnoses Not on filedocumented in this encounter Additional Health Concerns Assessment Noted Time PHQ-9 Depression Total Score: 3 11/27/19 24 2:18 PM EDT documented as of this encounter Care Teams Fueler Relationship Specialty Start Date End Date Kasey Taylor ANP 230 [place] [address] PCP - General Family Medicine 02/27/21 Ran Gallegos MD [facility] [place] [address] Cardiology 06/17/24 documented as of this encounter
--- OUTSIDE RECORDS SUMMARY | 2025-03-24 09:39 | XMS_ITS | Encounter Summary ---
Author Organization [employer] Address [address] [place] [address] 7 [place] [address] Care Team Providers Care Biblical Languages Professor Name Role Phone Kasey Taylor Primary Care Provider [phone] Ran Gallegos MD Unavailable [phone] Reason for Visit * Reason Onset Date Comments Appointment Request 09/23/2023 Encounter Details Date Type Department Care Team (Late st Contact Info) Description 09/23/2023 Telephone [facility] MEDICINE [address] [place], [place] [phone] Kasey Taylor ANP 230 [place], [place] [phone] Appointment Request Social History Tobacco Use Types Packs/Day Years [...] * Telephone Encounter - Doug Mari - 09/23/2023 1:42 PM EDT Tc from pt requesting to r/s appt for LEATHER SPRAYER on 09/22/23 documented in this encounter Plan of Treatment Upcoming Encounters Date Type Department Care Team (Late st Contact Info) Description 04/10/2025 2:00 PM EDT Office Visit [facility] MEDICINE [address] [place] [address] Kasey Taylor ANP 230 [place] [address] 04/25/2025 3:00 PM EDT Clinical Support [facility] CHC MED & PEDS 505 [place], [place] [phone] Shy Ordoñez, BONNIE 505 [place], [place] 05/19/2025 1:00 PM EST Office Visit [facility] MEDICINE [address] [place] [address] Nandini Laurent MD 230 [place] [address] documented as of this encounter Visit Diagnoses Not on filedocumented in this encounter Care Teams Biblical Languages Professor Relationship Specialty Start Date End Date Kasey Taylor ANP [address] [place] [address] PCP - General Family Medicine 02/27/21 Ran Gallegos MD [address] [place] [address] Cardiology 06/17/24 documented as of this encounter
== END 2025-03-23 08:54 | disposition home or self-care (01) ==
LOC: HO.HOSX 08:53
PROVIDERS: Visit Provider Physician Assistant
DX: Z13.89 Encounter for screening for other disorder (principal)

== ENCOUNTER 2025-06-07 09:56 | Outpatient (REF) | payer MEDICAID, SELFPAY ==
--- OUTSIDE RECORDS SUMMARY | 2025-06-07 10:30 | XMS_ITS | Encounter Summary ---
Author Organization [employer] Address [address] [place] [address] 7t [place] [address] Care Team Providers Care Applications Engineer Name Role Phone Kasey Taylor Primary Care Provider [phone] Ran Gallegos MD Unavailable [phone] Reason for Visit * Reason Comments STAFF ANTISUBMARINE OFFICER Encounter Details Date Type Department Care Team (Latest Contact Info) Description 06/07/2025 10:30 AM EST Clinical Support [facility] MED & PEDS 505 [place] [address] Shy Ordoñez, BONNIE 505 [place] [address] Chronic pain syndrome (Primary Dx) Social History Tobacco Use Types Packs/Day Years [...] the past 12 months, has t he [employer], gas, oil or water [employer] threatened to shut off services in your [...] AM EDT documented as of this encounter Progress Notes * Shy Ordoñez RN - 06/07/2025 10:30 AM EST SUBJECTIVE: Kathy Tabor is a 44 y.o. year old female who presents for STAFF ANTISUBMARINE OFFICER Preferred language for medical information: Cape Verdean Interpreted needed: No Kathy Tabor does report adherence to Tramadol (Ultram) 50 mg, take 1 tablet every 8 hours PRN, last refilled 06/06/25. The patient last took Tramadol (Ultram) on: 06/07/25 Medication is: 20% % effective at alleviating pain. OBJECTIVE: COMMERCIAL ARTIST checked: 06/07/2025 Pill count completed for Tramadol (Ultram), count today is 16 , anticipated count should be 16, this is as expected. Last PCP visit: 04/10/25 BPI completed on: 01/18/2025 , pain severity score: 6, activity interference score: 4.5 Controlled substance agreement signed: Controlled Substance Agreement 01/18/2025 STAFF ANTISUBMARINE OFFICER Tier: 2 Current Medications[1] Smoking status: Yes 3-4 cigarettes/ day ETOH use: Denies Illicit substances: Denies Marijuana use: Denies, Lab Results Component Value Date POCTHC Negative 06/07/2025 POCCOCAINEUR Negative 06/07/2025 POCOPIATEUR Negative 06/07/2025 DOAUR Negative 06/07/2025 POCAMPHETAMI Negative 06/07/2025 POCBENZODIUR Negative 06/07/2025 POCBARBSCRN Negative 06/07/2025 POCMETHADOUR Negative 06/07/2025 POCBUPSCRN Negative 06/07/2025 POCTCAUR Negative 06/07/2025 POCMDMAUR Negative 06/07/2025 POCOXYCODONE Negative 06/07/2025 POCPHENCYCUR Negative 06/07/2025 PROPOXUR Negative 06/07/2025 FENTANYLURIN Negative 06/07/2025 ASSESSMENT: Encounter Diagnosis Name Primary? Chronic pain syndrome Yes PLAN: Information on pain group given: Previously discussed Information on acupuncture given: Previously discussed Narcan education provided: Previously discussed Narcan prescription: active Kathy Tabor will continue taking medication as prescribed and follow up at the next CSTvisit or sooner if needed. Kathy Ryderabrnikki Tabor has verbalized understanding of care plan. Future Appointments Date Time Provider Department Center 07/10/2025 3:00 PM MIRELA Pedraza MEDICINE [facility] 09/14/2025 10:30 AM Shy Ordoñez RN [facility] Shy Ordoñez RN [1] Current Outpatient Medications: albuterol (2.5 MG/3ML) 0.083% nebulizer solution, INHALE THE CONTENT OF 1 VIAL (3mls) VIA NEBULIZERmachine EVERY 6 HOURS NEEDED, Disp: 90 mL, Rfl: 1 albuterol (Ventolin HFA) 108 (90 Base) MCG/ACT inhaler, INHALE 2 PUFFS BY MOUTH INTO THE lungs EVERY 4 TO 6 HOURS NEEDED, Disp: 18 g, Rfl: 1 aspirin (Aspirin Low Dose) 81 MG EC tablet, TAKE 1 TABLET BY MOUTH EVERY MORNING, Disp: 90 tablet, Rfl: 1 clotrimazole (Lotrimin) 1 % cream, Apply topically 2 times daily., Disp: 30 g, Rfl: 0 cyclobenzaprine (Flexeril) 10 MG tablet, Take 1 tablet (10 mg) by mouth 3 times daily for 10 days.,Disp: 30 tablet, Rfl: 0 Diclofenac Sodium (Voltaren) 1 % gel, Apply up to 4x/d to affected joint(s) for pain/swelling, Disp: 100 g, Rfl: 2 fluticasone (Flovent HFA) 220 MCG/ACT inhaler, Inhale 2 puffs every 12 (twelve) hours., Disp: , Rfl: Folbee 2.5-25-1 MG tablet tablet, TAKE 1 TABLET BY MOUTH ONCE DAILY, Disp: 90 tablet, Rfl: 1 GNP Fiber Therapy 500 MG tablet, Take 2 tablets by mouth Once per day., Disp: , Rfl: halobetasol (UltraVATE) 0.05 % ointment, Apply topically 2 times daily. Up to 4 weeks, Disp: 50 g, Rfl: 1 Linzess 145 MCG capsule, Take 145 mcg by mouth in the morning., Disp: , Rfl: melatonin 3 MG tablet, TAKE 1 TABLET BY MOUTH 30 MINUTES TO 1 HOUR BEFORE BEDTIME, Disp: 90 tablet,Rfl: 1 naloxone (Narcan) 4 mg/0.1 mL nasal spray, Administer 1 spray (4 mg) into affected nostril(s) if needed for opioid reversal. May repeat every 2-3 minutes if needed, alternating nostrils, until medical assistance becomes available., Disp: 2 each, Rfl: 2 nicotine polacrilex (Nicotine Mini) 2 MG lozenge, Dissolve 1 lozenge (2 mg) in the mouth if needed for smoking cessation. Every 2 hours as needed in place of cigarette., Disp: 48 lozenge, Rfl: 1 omeprazole (PriLOSEC) [address] capsule, 1 capsule BID, Do not crush or chew., Disp: 180 capsule, Rfl: 0 pregabalin (Lyrica) 50 MG capsule, TAKE 1 CAPSULE BY MOUTH 3 (THREE) TIMES A DAY, Disp: 90 capsule,Rfl: 3 Simethicone Ultra Strength 180 MG capsule, Take 1 capsule by mouth every 6 (six) hours., Disp: , Rfl: traMADol (Ultram) 50 MG tablet, Take 1 tablet (50 mg) by mouth every 8 (eight) hours if needed for severe pain for up to 7 days., Disp: 21 tablet, Rfl: 0 triamcinolone (Kenalog) 0.1 % ointment, Apply topically if needed in the morning and at bedtime forrash., Disp: 30 g, Rfl: 1 warfarin (Coumadin) 5 MG tablet, TAKE 1 TO 2 TABLETS BY MOUTH DAILY DIRECTED BY THE coumadin clinic, Disp: , Rfl: zolpidem (Ambien) 10 MG tablet, TAKE 1 TABLET BY MOUTH ONCE DAILY AT BEDTIME NEEDED, Disp: 30 tablet, Rfl: 1 documented in this encounter Plan of Treatment Upcoming Encounters Date Type Department Care Team (Late st Contact Info) Description 07/10/2025 3:00 PM EST Office Visit [facility] MEDICINE 230 [place], [place] [phone] Kasey Taylor ANP 230 [place] [address] 09/14/2025 10:30 AM EDT Clinical Support [facility] CH[facility] MED & PEDS 505 [place], [place] [phone] Shy Ordoñez, BONNIE 505 [place] [address] documented as of this encounter Procedures Procedure Name Priority Date/Time Associated Diagnosis Comments POCT JOHN-14 URINE DRUG SCREEN Routine 06/07/2025 10:29 AM EST Chronic pain syndrome documented in this encounter Results * POCT JOHN-14 Urine Drug Screen (06/07/2025 10:29 AM EST) THC Negative Negative Cocaine Screen, Urine Negative [...] obtained by clean catch procedure / Unknown 06/07/2025 10:29 AM EST Narrative Shy Ordoñez RN - 06/07/2025 10:29 AM EST . Internal Pass Control Lot# [id number] Exp: 04-11-26 Kasey DIETZ POINT OF CARE TEST ENTER/EDIT OR DERABLES Final Result documented in this encounter Visit Diagnoses Diagnosis Chronic pain syndrome- Primary documented in this encounter Additional Health Concerns Assessment Noted Time PHQ-9 Depression Total Score: 3 11/27/19 24 2:18 PM EDT documented as of this encounter Care Teams Applications Engineer Relationship Specialty Start Date End Date Kasey Taylor ANP 230 [place] [address] PCP - General Family Medicine 02/27/21 Ran Gallegos MD [address] [facility] [place] [address] Cardiology 06/17/24 documented as of this encounter
--- OUTSIDE RECORDS SUMMARY | 2025-06-07 11:11 | XMS_ITS | Encounter Summary ---
Author Organization [employer] Address [address] [facility] 7t [place] [address] Care Team Providers Care Primary Care Coordinator Name Role Phone Kasey Taylor Primary Care Provider [phone] Ran Gallegos MD Unavailable [phone] Reason for Visit * Reason Comments Med Refill Encounter Details Date Type Department Care Team ([facility] st Contact Info) Description 06/03/2025 Refill [facility] MEDICINE 230 [place], [place] [phone] Kasey Taylor ANP 230 [place], [place] [phone] Mild asthma without complication, unspecified whether persistent [...] Description 07/10/2025 3:00 PM EST Office Visit [facility] MEDICINE 230 [place] [address] Kasey Taylor ANP 230 [place] [address] 09/14/2025 10:30 AM EDT Clinical Support [facility] MED & PEDS 505 [place] [address] Shy Ordoñez, BONNIE 505 [place] [address] documented as of this encounter Visit Diagnoses Diagnosis Mild asthma without complication, unspecified whether persistent documented in this encounter Additional Health Concerns Assessment Noted Time PHQ-9 Depression Total Score: 3 11/27/19 24 2:18 PM EDT documented as of this encounter Care Teams Primary Care Coordinator Relationship Specialty Start Date End Date Kasey Taylor ANP [address] [place] [address] PCP - General Family Medicine 02/27/21 Ran Gallegos MD [address] [place] [address] Cardiology 06/17/24 documented as of this encounter
--- OUTSIDE RECORDS SUMMARY | 2025-06-07 11:11 | XMS_ITS | Encounter Summary ---
Author Organization [employer] Address [address] [place] [address] 7t [place] [address] Care Team Providers Care Travel Rn Or Name Role Phone Kasey Taylor Primary Care Provider Ran Gallegos MD Unavailable [phone] Reason for Visit * Reason Onset Date Comments Med Refill 06/05/2025 Encounter Details Date Type Department Care Team ([facility] Contact Info) Description 06/05/2025 Refill [facility] [address] [place] [address] Shy Ordoñez, RN 505 [place] [address] Chronic pain syndrome Social History Tobacco Use [...] the past 12 months, has t he Inven[employer], gas, oil or water company threatened to [...] Description 07/10/2025 3:00 PM EST Office Visit [facility] [address] [place] [address] Kasey Taylor ANP 230 [place] [address] 09/14/2025 10:30 AM EDT Clinical Support [facility] 505 [place] [address] Shy Ordoñez, BONNIE 505 [place] [address] documented as of this encounter Visit Diagnoses Diagnosis Chronic pain syndrome documented in this encounter Additional Health Concerns Assessment Noted Time PHQ-9 Depression Total Score: 3 11/27/19 2:18 PM EDT documented as of this encounter Care Teams Travel Rn Or Relationship Specialty Start Date End Date Kasey Taylor ANP [address] [place] [address] PCP - General Family Medicine 02/27/21 Ran Gallegos MD [address] [facility] [place] [address] Cardiology 06/17/24 documented as of this encounter
--- OUTSIDE RECORDS SUMMARY | 2025-06-07 11:11 | XMS_ITS | Encounter Summary ---
Author Organization [employer] Address [address] [place] [address] 7 [place] [address] Care Team Providers Care Geospatial Information Technologist Name Role Phone Kasey Taylor Primary Care Provider [phone] Ran Gallegos MD Unavailable Reason for Visit * Reason Onset Date Comments Med Refill 06/22/2023 Encounter Details Date Type Department Care Team (Late st Contact Info) Description 06/22/2023 Telephone [facility] 230 [place], [place] [phone] Kasey Taylor ANP 230 [place], [place] [phone] Med Refill Social History Tobacco Use Types [...] (Ultram) 50 MG tablet Please sent to [facility] [place] - [id number] - [place] - [address] documented in this encounter Plan of Treatment Upcoming Encounters Date Type Department Care Team (Late st Contact Info) Description 07/10/2025 3:00 PM EST Office Visit [facility] 230 [place] [address] Kasey Taylor ANP 230 [place] [address] 09/14/2025 10:30 AM EDT Clinical Support [facility] 505 [place] [address] Shy Ordoñez, BONNIE 505 [place], [place] [phone] documented as of this encounter Visit Diagnoses Not on filedocumented in this encounter Care Teams Geospatial Information Technologist Relationship Specialty Start Date End Date Kasey Taylor ANP [address] [place] [address] PCP - General Family Medicine 02/27/21 [place] [address] Cardiology 06/17/24 documented as of this encounter
--- OUTSIDE RECORDS SUMMARY | 2025-06-07 11:11 | XMS_ITS | Encounter Summary ---
Author Organization [employer] Address [address] [facility] 7t [place] [address] Care Team Providers Care Biomedical Technician Name Role Phone Kasey Taylor Primary Care Provider [phone] Ran Gallegos MD Unavailable [phone] Encounter Details Date Type Department Care Team (Latest Contact Info) Description 06/07/2025 Travel Social History Tobacco Use Types Packs/Day Years [...] Description 07/10/2025 3:00 PM EST Office Visit [facility] [address] [place] [address] Kasey Taylor ANP 230 [place] [address] 09/14/2025 10:30 AM EDT Clinical Support [facility] 505 [place] [address] Shy Ordoñez, BONNIE 505 [place] [address] documented as of this encounter Visit Diagnoses Not on filedocumented in this encounter Additional Health Concerns Assessment Noted Time PHQ-9 Depression Total Score: 3 11/27/19 24 2:18 PM EDT documented as of this encounter Care Teams Biomedical Technician Relationship Specialty Start Date End Date Kasey Taylor ANP [address] [place] [address] PCP - General Family Medicine 02/27/21 Ran Gallegos MD [address] [place] [address] Cardiology 06/17/24 documented as of this encounter
--- OUTSIDE RECORDS SUMMARY | 2025-06-07 11:11 | XMS_ITS | Encounter Summary ---
Author Organization [employer] Address [address] [facility] 7t [place] [address] Care Team Providers Care Doctor Of Optometry Name Role Phone Kasey Taylor Primary Care Provider [phone] Ran Gallegos MD Unavailable [phone] Reason for Visit * Reason Onset Date Comments Med Refill 05/15/2025 Encounter Details Date Type Department Care Team (Late st Contact Info) Description 05/15/2025 Telephone [facility] 230 [place], [place] [phone] Kasey Taylor ANP 230 [place], [place] [phone] Med Refill Social History Tobacco Use Types [...] encounter Miscellaneous Notes * Telephone Encounter - Renan Mcclure - 05/16/2025 9:53 AM EST Tc from pt calling back regarding prior message. Contact pt at [phone] * Telephone Encounter - Jennie Manriquez - 05/15/2025 10:27 AM EST TC from pt requesting medication refill. Medications needing refill : - traMADol (Ultram) 50 MG tablet To be sent to: - [facility] - [place], [place] - [id number] - [place] - [address] documented in this encounter Plan of Treatment Upcoming Encounters Date Type Department Care Team (Late st Contact Info) Description 07/10/2025 3:00 PM EST Office Visit [facility] [address] [place] [address] [phone] Kasey Taylor ANP 230 [place] [address] 09/14/2025 10:30 AM EDT Clinical Support [facility] 505 [place] [address] Shy Ordoñez, RN 505 [place] [address] documented as of this encounter Visit Diagnoses Not on filedocumented in this encounter Additional Health Concerns Assessment Noted Time PHQ-9 Depression Total Score: 3 11/27/19 24 2:18 PM EDT documented as of this encounter Care Teams Doctor Of Optometry Relationship Specialty Start Date End Date Kasey Taylor ANP 230 [place] [address] PCP - General Family Medicine 02/27/21 Ran Gallegos MD [place] [address] Cardiology 06/17/24 documented as of this encounter
--- OUTSIDE RECORDS SUMMARY | 2025-06-07 11:11 | XMS_ITS | Encounter Summary ---
Author Organization [employer] Address [address] [place] [address] 7t [place] [address] Care Team Providers Care Dental Surgeon Name Role Phone Kasey Taylor Primary Care Provider [phone] Ran Gallegos MD Unavailable [phone] Reason for Visit * Reason Onset Date Comments Med Refill 05/23/2025 Encounter Details Date Type Department Care Team (Late st Contact Info) Description 05/23/2025 Telephone [facility] 230 [place], [place] [phone] Kasey Taylor ANP 230 [place], [place] [phone] Med Refill Social History Tobacco Use Types [...] * Telephone Encounter - Jennie Manriquez - 05/23/2025 10:09 AM EST TC from pt requesting medication refill. Medications needing refill : - traMADol (Ultram) 50 MG tablet To be sent to: - [facility] - [place], [place] - [id number] - [place] - [address] documented in this encounter Plan of Treatment Upcoming Encounters Date Type Department Care Team (Late st Contact Info) Description 07/10/2025 3:00 PM EST Office Visit [facility] 230 [place] [address] Kasey Taylor ANP 230 [place] [address] 09/14/2025 10:30 AM EDT Clinical Support [facility] [address] [place] [address] Shy Ordoñez, BONNIE 505 [place] [address] documented as of this encounter Visit Diagnoses Not on filedocumented in this encounter Additional Health Concerns Assessment Noted Time PHQ-9 Depression Total Score: 3 11/27/19 24 2:18 PM EDT documented as of this encounter Care Teams Dental Surgeon Relationship Specialty Start Date End Date Kasey Taylor ANP 230 [place] [address] PCP - General Family Medicine 02/27/21 Ran Gallegos MD 21 [facility] [place] [address] Cardiology 06/17/24 documented as of this encounter
--- OUTSIDE RECORDS SUMMARY | 2025-06-07 11:11 | XMS_ITS | Encounter Summary ---
Author Organization [employer] Address [address] [place] [address] 7t [place] [address] Care Team Providers Care Filter Filler Name Role Phone Kasey Taylor Primary Care Provider Ran Gallegos MD Unavailable [phone] Reason for Visit * Reason Onset Date Comments Med Refill 06/05/2025 Encounter Details Date Type Department Care Team (Late st Contact Info) Description 06/05/2025 Telephone [facility] 230 [place], [place] [phone] Kasey Taylor ANP 230 [place], [place] [phone] Med Refill Social History Tobacco Use Types [...] * Telephone Encounter - Renan Mcclure - 06/05/2025 9:29 AM EST TC from pt requesting medication refill. Medications needing refill : traMADol (Ultram) 50 MG tablet To be sent to: [facility] - [place], [place] - [id number] - [place] - [address] documented in this encounter Plan of Treatment Upcoming Encounters Date Type Department Care Team (Late st Contact Info) Description 07/10/2025 3:00 PM EST Office Visit [facility] [address] [place] [address] Kasey Taylor ANP 230 [place] [address] 09/14/2025 10:30 AM EDT Clinical Support [facility] [address] [place] [address] Shy Ordoñez, BONNIE 505 [place] [address] documented as of this encounter Visit Diagnoses Not on filedocumented in this encounter Additional Health Concerns Assessment Noted Time PHQ-9 Depression Total Score: 3 11/27/19 24 2:18 PM EDT documented as of this encounter Care Teams Filter Filler Relationship Specialty Start Date End Date Kasey Taylor ANP 230 [place] [address] PCP - General Family Medicine 02/27/21 Ran Gallegos MD [address] [place] [address] Cardiology 06/17/24 documented as of this encounter
--- OUTSIDE RECORDS SUMMARY | 2025-06-07 11:11 | XMS_ITS | Clinical Summary ---
Author Organization [facility] Address [address] [place] [address] Phone Care Team Providers Care Resaw Operator Name Role Phone Kasey Taylor NP Primary Care Provider [phone] Allergies No known active allergies Medical History [...] Health Maintenance Due Date Last Done Comments Colorectal Cancer Screening: Colonoscopy 1978 Cervical Cancer Screening: Pap Smear 11/14/1999 Hepatitis B Vaccines (3 of 3 - 19+ 3-dose series) 03/04/2016 01/08/2016, 08/05/2007 Hepatitis C Screening 06/08/2022 Social Influencers of Health Screening 06/08/2022 Breast Cancer Screening 10/03/2022 10/03/2020 Depression Screening 07/06/2024 COVID-19 Vaccine (1 - 2024- season) 2025 Influenza Vaccine (#1) 2025 , [...] topic Insurance MEDICAID - [place] Care Teams Resaw Operator Relationship Specialty Start Date End Date Kasey Taylor NP [address] [place] [phone] PCP - General 11/06/23
--- OUTSIDE RECORDS SUMMARY | 2025-06-07 11:11 | XMS_ITS | Encounter Summary ---
Author Organization [employer] Address [address] [place] [address] 7 [place] [address] Care Team Providers Care Master Rigger Name Role Phone Kasey Taylor Primary Care Provider [phone] Ran Gallegos MD Unavailable [phone] Reason for Visit * Reason Comments Med Refill Encounter Details Date Type Department Care Team (Late st Contact Info) Description 09/10/2023 Refill [facility] [address] [place] [address] Kasey Taylor ANP [address] [place] [address] Social History Tobacco Use Types Packs/Day Years [...] Description 07/10/2025 3:00 PM EST Office Visit [facility] [address] [place] [address] [phone] Kasey Taylor ANP [address] [place] [phone] 09/14/2025 10:30 AM EDT Clinical Support [facility] [address] [place] [address] Shy Ordoñez, RN [address] [place] [address] documented as of this encounter Visit Diagnoses Not on filedocumented in this encounter Care Teams Master Rigger Relationship Specialty Start Date End Date Kasey Taylor ANP 230 [place] [address] PCP - General Family Medicine 02/27/21 Ran Gallegos MD [address] [place] [address] Cardiology 06/17/24 documented as of this encounter
--- OUTSIDE RECORDS SUMMARY | 2025-06-07 11:12 | XMS_ITS | Encounter Summary ---
Author Organization [employer] Address [address] [place] [address] 7t [place] [address] Care Team Providers Care Fun House Attendant Name Role Phone Kasey Taylor Primary Care Provider [phone] Ran Gallegos MD Unavailable [phone] Reason for Visit * Reason Onset Date Comments Med Refill 02/14/2025 Encounter Details Date Type Department Care Team (Late st Contact Info) Description 02/14/2025 Telephone [facility] 230 [place], [place] [phone] Kasey Taylor ANP 230 [place], [place] [phone] Med Refill Social History Tobacco Use Types [...] Scott LPN - 02/14/2025 10:55 AM EDT HOSE BUILDER checked on 02/14/25 Ambien last filled on 01/12/25 and has 1 refill left. Please advise patient to call the pharmacy. * Telephone Encounter - Matthieu Kelley - 02/14/2025 10:44 AM EDT TC from pt requesting medication refill. Medications needing refill: zolpidem (Ambien) 10 MG tablet To be sent to: [facility] - [place] - [id number] - [place] - [address] documented in this encounter Plan of Treatment Upcoming Encounters Date Type Department Care Team (Late st Contact Info) Description 07/10/2025 3:00 PM EST Office Visit [facility] 230 [place] [address] Kasey Taylor ANP 230 [place] [address] 09/14/2025 10:30 AM EDT Clinical Support [facility] 505 [place] [address] Shy Odroñez, RN 505 [place] [address] documented as of this encounter Visit Diagnoses Not on filedocumented in this encounter Additional Health Concerns Assessment Noted Time PHQ-9 Depression Total Score: 3 11/27/19 24 2:18 PM EDT documented as of this encounter Care Teams Fun House Attendant Relationship Specialty Start Date End Date Kasey Taylor ANP 230 [place] [address] PCP - General Family Medicine 02/27/21 [place] [address] Cardiology 06/17/24 documented as of this encounter
--- OUTSIDE RECORDS SUMMARY | 2025-06-07 11:12 | XMS_ITS | Encounter Summary ---
Author Organization [employer] Address [address] [place] [address] 7 [place] [address] Care Team Providers Care Residential Child Care Counselor Name Role Phone Kasey Taylor Primary Care Provider [phone] Ran Gallegos MD Unavailable Reason for Visit * Reason Comments Med Refill Encounter Details Date Type Department Care Team (Late Contact Info) Description 12/11/2022 Refill [facility] 505 [place], [place] [phone] Kasey Taylor ANP [address] [place] [address] [phone] Mild asthma without complication, unspecified whether persistent [...] Description 07/10/2025 3:00 PM EST Office Visit [facility] [address] [place] [address] [phone] Kasey Taylor ANP 230 [place], [place] [phone] 09/14/2025 10:30 AM EDT Clinical Support [facility] [address] [place] [address] Shy Ordoñez, BONNIE 505 [place] [address] documented as of this encounter Visit Diagnoses Diagnosis Mild asthma without complication, unspecified whether persistent documented in this encounter Care Teams Residential Child Care Counselor Relationship Specialty Start Date End Date Kasey Taylor ANP [address] [place] [address] PCP - General Family Medicine 02/27/21 Ran Gallegos MD 21 [facility] [place] [address] Cardiology 06/17/24 documented as of this encounter
--- OUTSIDE RECORDS SUMMARY | 2025-06-07 11:12 | XMS_ITS | Encounter Summary ---
Author Organization [employer] Address [address] [place] [address] 7t [place] [address] Care Team Providers Care Filler Sifter Machine Name Role Phone Kasey Taylor Primary Care Provider [phone] Ran Gallegos MD Unavailable [phone] Encounter Details Date Type Department Care Team (Late st Contact Info) Description 02/25/2023 Orders Only [facility] 505 [place] [address] Beverley Scott LPN Social History Tobacco Use [...] Description 07/10/2025 3:00 PM EST Office Visit [facility] 230 [place], [place] [phone] Kasey Taylor ANP 230 [place] [address] 09/14/2025 10:30 AM EDT Clinical Support [facility] 505 [place] [address] Shy Ordoñez, RN 505 [place] [address] documented as of this encounter Visit Diagnoses Not on filedocumented in this encounter Care Teams Filler Sifter Machine Relationship Specialty Start Date End Date Kasey Taylor ANP [address] [place] [address] PCP - General Family Medicine 02/27/21 [place] [address] Cardiology 06/17/24 documented as of this encounter
--- OUTSIDE RECORDS SUMMARY | 2025-06-07 11:12 | XMS_ITS | Encounter Summary ---
Author Organization [employer] Address [address] [place] [address] 7t [place] [address] Care Team Providers Care Floor Waxer Name Role Phone Kasey Taylor Primary Care Provider Ran Gallegos MD Unavailable [phone] Encounter Details Date Type Department Care Team (Late st Contact Info) Description 08/12/2022 Telephone [facility] [address] [place] [address] Kasey Taylor ANP 230 [place] [address] Social History Tobacco Use Types Packs/Day Years [...] Description 07/10/2025 3:00 PM EST Office Visit [facility] [address] [place] [address] Kasey Taylor ANP 230 [place] [address] 09/14/2025 10:30 AM EDT Clinical Support [facility] 505 [place] [address] Shy Ordoñez, BONNIE 505 [place] [address] documented as of this encounter Visit Diagnoses Not on filedocumented in this encounter Care Teams Floor Waxer Relationship Specialty Start Date End Date Kasey Taylor ANP [address] [place] [address] PCP - General Family Medicine 02/27/21 [place] [address] Cardiology 06/17/24 documented as of this encounter
--- OUTSIDE RECORDS SUMMARY | 2025-06-07 11:12 | XMS_ITS | Encounter Summary ---
Author Organization [employer] Address [address] [place] [address] 7t [place] [address] Care Team Providers Care Staff Field Engineer Name Role Phone Kasey Taylor Primary Care Provider [phone] Ran Gallegos MD Unavailable [phone] Encounter Details Date Type Department Care Team (Late st Contact Info) Description 06/06/2022 Orders Only [facility] 505 [place] [address] Kasey Taylor ANP 230 [place] [address] Primary insomnia Social History Tobacco Use Types [...] Description 07/10/2025 3:00 PM EST Office Visit [facility] 230 [place] [address] Kasey Taylor ANP 230 [place] [address] 09/14/2025 10:30 AM EDT Clinical Support [facility] 505 [place] [address] Shy Ordoñez, BONNIE 505 [place] [address] documented as of this encounter Visit Diagnoses Diagnosis Primary insomnia Persistent disorder of initiating or maintaining sleep documented in this encounter Care Teams Staff Field Engineer Relationship Specialty Start Date End Date Kasey Taylor ANP 230 [place] [address] PCP - General Family Medicine 02/27/21 Ran Gallegos MD 21 [place] [address] Cardiology 06/17/24 documented as of this encounter
--- OUTSIDE RECORDS SUMMARY | 2025-06-07 11:12 | XMS_ITS | Encounter Summary ---
Author Organization [employer] Address [address] [place] [address] 7t [place] [address] Care Team Providers Care Electronics System Mechanic Name Role Phone Kasey Taylor Primary Care Provider [phone] Ran Gallegos MD Unavailable [phone] Encounter Details Date Type Department Care Team (Late st Contact Info) Description 08/11/2022 Orders Only [facility]EDS 505 [place] [address] Beverley Scott LPN Social History Tobacco Use [...] Description 07/10/2025 3:00 PM EST Office Visit [facility] 230 [place] [address] Kasey Taylor ANP 230 [place] [address] 09/14/2025 10:30 AM EDT Clinical Support [facility] 505 [place] [address] Shy Ordoñez, RN 505 [place] [address] documented as of this encounter Visit Diagnoses Not on filedocumented in this encounter Care Teams Electronics System Mechanic Relationship Specialty Start Date End Date Kasey Taylor ANP 230 [place] [address] PCP - General Family Medicine 02/27/21 Ran Gallegos MD [facility] [place] [address] Cardiology 06/17/24 documented as of this encounter
--- OUTSIDE RECORDS SUMMARY | 2025-06-07 11:12 | XMS_ITS | Encounter Summary ---
Author Organization [employer] Address [address] [facility] 7t [place] [address] Care Team Providers Care Commissary Steward Name Role Phone Kasey Taylor Primary Care Provider [phone] Ran Gallegos MD Unavailable [phone] Reason for Visit * Reason Comments Med Refill Encounter Details Date Type Department Care Team ([facility] st Contact Info) Description 03/20/2025 Refill [facility] PEDS [address] [place], [place] [phone] Kasey Taylor ANP 230 [place] [address] Primary insomnia; Chronic pain syndrome Social History [...] Description 07/10/2025 3:00 PM EST Office Visit [facility] MEDICINE 230 [place] [address] Kasey Taylor ANP [address] [place] [address] 09/14/2025 10:30 AM EDT Clinical Support [facility] PEDS 505 [place] [address] Shy Ordoñez, BONNIE 505 [place] [address] documented as of this encounter Visit Diagnoses Diagnosis Primary insomnia Persistent disorder of initiating or maintaining sleep Chronic pain syndrome documented in this encounter Additional Health Concerns Assessment Noted Time PHQ-9 Depression Total Score: 3 11/27/19 2:18 PM EDT documented as of this encounter Care Teams Commissary Steward Relationship Specialty Start Date End Date Kasey Taylor ANP [address] [place] [address] PCP - General Family Medicine 02/27/21 Ran Gallegos MD [address] [place] [address] Cardiology 06/17/24 documented as of this encounter
--- OUTSIDE RECORDS SUMMARY | 2025-06-07 11:12 | XMS_ITS | Encounter Summary ---
Author Organization [employer] Address [address] [place] [address] 7 [place] [address] Care Team Providers Care Account Coordinator Name Role Phone Kasey Taylor Primary Care Provider [phone] Ran Gallegos MD Unavailable [phone] Reason for Visit * Reason Comments Med Refill Encounter Details Date Type Department Care Team ([facility] st Contact Info) Description 03/04/2024 Refill [facility] [address] [place] [address] Coretta Pascual MD [address] [place] [address] Chronic pain syndrome Social History Tobacco Use [...] Description 07/10/2025 3:00 PM EST Office Visit [facility] [address] [place] [address] Kasey Taylor ANP [address] [place] [address] 09/14/2025 10:30 AM EDT Clinical Support [facility] [address] [place] [address] Shy Ordoñez, BONNIE 505 [place] [address] documented as of this encounter Visit Diagnoses Diagnosis Chronic pain syndrome documented in this encounter Additional Health Concerns Assessment Noted Time PHQ-9 Depression Total Score: 3 11/27/19 24 2:18 PM EDT documented as of this encounter Care Teams Account Coordinator Relationship Specialty Start Date End Date Kasey Taylor ANP [address] [place] [address] PCP - General Family Medicine 02/27/21 Ran Gallegos MD [address] [place] [address] Cardiology 06/17/24 documented as of this encounter
--- OUTSIDE RECORDS SUMMARY | 2025-06-07 11:12 | XMS_ITS | Clinical Summary ---
Author Organization [employer] Address [address] [place] [address] 7t [place] [address] Care Team Providers Care Traffic Line Painter Name Role Phone Kasey Taylor Primary Care Provider [phone] Ran Gallegos MD Unavailable [phone] Allergies Active Allergy Reactions Criticality Noted [...] BY MOUTH EVERY MORNING 90 tablet 1 5 5:13 PM EST 11/12/19 25 Active Diclofenac Sodium (Voltaren) 1 % gelIndications: Bilateral hip pain Apply up to 4x/d to affected joint(s) for pain/swelling 100 g 2 01/05/20 25 Active cyclobenzaprine (Flexeril) 10 MG tabletIndicatio ns:Bilateral hip pain Take 1 tablet (10 mg) by mouth 3 times daily for 10 days. 30 tablet 02/18/20 25 Active GNP Fiber Therapy 500 MG tablet Take 2 tablets by mouth Once per day. 08/30/19 25 Active Simethicone Ultra Strength 180 MG capsule Take 1 capsule by mouth every 6 (six) hours. 08/11/19 25 Active omeprazole (PriLOSEC) [address] capsuleIndicati ons:Epigastric pain 1 capsule BID, Do not crush or chew. 180 capsule 04/10/20 25 Active albuterol (Ventolin HFA) 108 (90 Base) MCG/ACT inhalerIndicati ons:Mild asthma without complication, unspecified whether persistent INHALE 2 PUFFS BY MOUTH INTO THE lungs EVERY 4 TO 6 HOURS NEEDED 18 g 1 5 1:00 PM EST 04/17/20 25 Active zolpidem (Ambien) 10 MG tabletIndicatio ns:Primary insomnia TAKE 1 TABLET BY MOUTH ONCE DAILY AT BEDTIME NEEDED 30 tablet 1 5 5:13 PM EST 05/19/20 25 Active halobetasol (UltraVATE) 0.05 % ointmentIndicat ions:Hand eczema,Nummular dermatitis Apply topically 2 times daily. Up to 4 weeks 50 g 1 5 5:13 PM EST 05/19/20 25 Active traMADol (Ultram) 50 MG tabletIndicatio ns:Chronic pain syndrome Take 1 tablet (50 mg) by mouth every 8 (eight) hours if needed for severe pain for up to 7 days. 21 tablet 06/05/20 25 2024 Active zolpidem (Ambien) 10 MG tabletIndicatio ns:Primary insomnia TAKE 1 TABLET BY MOUTH ONCE DAILY AT BEDTIME NEEDED 30 tablet 1 03/20/20 25 2024 Discontinued traMADol (Ultram) 50 MG tabletIndicatio ns:Chronic pain syndrome Take 1 tablet (50 mg) by mouth every 8 (eight) hours if needed for severe pain. 42 tablet 04/20/20 25 2024 Discontinued traMADol (Ultram) 50 MG tabletIndicatio ns:Chronic pain syndrome Take 1 tablet (50 mg) by mouth every 8 (eight) hours if needed for severe pain for up to 7 days. 21 tablet 5 3:27 PM EST 05/15/20 25 2024 Discontinued(R eorder (will not trigger notification to Pharmacy)) traMADol (Ultram) 50 MG tabletIndicatio ns:Chronic pain syndrome Take 1 tablet (50 mg) by mouth every 8 (eight) hours if needed for severe pain for up to 7 days. 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 Declines NRT. Aortic valve replaced 10/06/2022 Chronic pain syndrome 08/13/2022 Eczema 08/13/2022 Spinal stenosis of lumbar region 08/13/2022 Ingrowing toenail 08/13/2022 Aortic valve stenosis 07/19/2014 Overview (08/13/2022): Aortic valve stenosis Aortic valve disorder 05/23/2014 Asthma 06/18/2012 Insomnia 01/06/2012 Encounters Date Type Department Care Team Description 06/07/2025 10:30 AM EST Clinical Support [facility] [address] [place], [place] [phone] Shy Ordoñez RN Chronic pain syndrome (Primary Dx) 06/07/2025 Travel 06/05/2025 Refill [facility] [address] [place], [place] [phone] Shy Ordoñez RN Chronic pain syndrome 06/05/2025 Telephone [facility] [address] [place] [address] Kasey Taylor ANP Med Refill 06/03/2025 Refill [facility] [address] [place] [address] Kasey Taylor ANP Mild asthma without complication, unspecified whether persistent 05/23/2025 Refill [facility] [address] [place] [address] Shy Ordoñez, public records officer pain syndrome 05/23/2025 Telephone [facility] [address] [place] [address] Kasey Taylor ANP Med Refill 05/19/2025 1:00 PM EST Office Visit [facility] [address] [place] [address] Nandini Laurent MD Hand eczema (Primary Dx); Nummular dermatitis; Hyperpigmentation 05/19/2025 Travel 05/18/2025 Refill [facility] [address] [place] [address] Kasey Taylor ANP Primary insomnia 05/16/2025 Refill [facility] [address] [place] [address] Shy Ordoñez, BONNIE 05/15/2025 Telephone [facility] [address] [place] [address] Kasey Taylor ANP Med Refill 05/13/2025 Refill [facility] [address] [place] [address] Kasey Taylor ANP Chronic pain syndrome 04/28/2025 Telephone [facility] [address] [place] [address] Kasey Taylor ANP Bianca recall 04/25/2025 Telephone [facility] [address] [place] [address] Shy Ordoñez, RN 04/19/2025 Refill [facility] [address] [place] [address] Kasey Taylor ANP Chronic pain syndrome 04/16/2025 Refill [facility] [address] [place] [address] Kasey Taylor ANP Mild asthma without complication, unspecified whether persistent 04/11/2025 Telephone [facility] [address] [place] [address] Kasey Taylor ANP Durable Medical Equipment 04/10/2025 2:00 PM EDT Office Visit [facility] [address] [place] [address] Kasey Taylor ANP Chronic pain syndrome (Primary Dx); Spinal stenosis of lumbar region with neurogenic claudication; Cigarette nicotine dependence without complication; Aortic valve stenosis, etiology of cardiac valve disease unspecified; intermediate (current) use of opiate analgesic; Anticoagulated on Coumadin; Bilateral hip pain; Epigastric pain; Left ear pain; Need for hepatitis B screening test 04/07/2025 Telephone [facility] [address] [place] [address] Kasey Taylor ANP chartprep 04/04/2025 Refill [facility] [address] [place] [address] Shy Ordoñez RN Chronic pain syndrome 04/04/2025 Telephone [facility] [address] [place] [address] Kasey Taylor ANP Med Refill 04/03/2025 Patient Outreach [facility] [address] [place] [address] Kasey Taylor ANP Pre-visit Planning (SDOH was already completed ) 03/20/2025 Refill [facility] [address] [place] [address] Kasey Taylor ANP Primary insomnia; Chronic pain syndrome 03/20/2025 Refill [facility] [address] [place] [address] Kasey Taylor ANP Primary insomnia 03/20/2025 Refill [facility] [address] [place] [address] Kasey Taylor ANP Chronic pain syndrome 03/13/2025 10:20 AM EDT Office Visit [facility] [address] [place] [address] Coretta Darby MD Bilateral hip pain 03/13/2025 Travel 03/10/2025 Refill [facility] [address] [place] [address] Kasey Taylor ANP Primary insomnia from Last 3 Months Immunizations Immunization Administration [...] Sign Reading Time Taken Comments Blood Pressure 118/84 05/19/2025 1:03 PM EST Pulse 80 05/19/2025 1:03 PM EST Temperature 37.1 C (98.7 F) 05/19/2025 1:03 PM EST Respiratory Rate 18 05/19/2025 1:03 PM EST Oxygen Saturation 96% 04/10/2025 1:53 PM EDT Inhaled Oxygen Concentration - - Weight 87.1 kg (192 lb) 05/19/2025 1:03 PM EST Height 160 cm (5' 3 ) 05/19/2025 1:03 PM EST Body Mass Index 34.01 05/19/2025 1:03 PM EST Plan of Treatment Upcoming Encounters Date Type Department Care Team (Late st Contact Info) Description 07/10/2025 3:00 PM EST Office Visit [facility] [address] [place] [address] Kasey Taylor ANP [address] [place] [address] 09/14/2025 10:30 AM EDT Clinical Support [facility] [address] [place] [address] Shy Ordoñez, RN [address] [place] [address] Health Maintenance Due Date Last Done Comments CT Colonography 1978 Colonoscopy 1978 Colorectal Cancer Screening 1978 FIT DNA/Cologuard 1978 FIT 1978 FOBT 1978 Sigmoidoscopy 1978 Family Planning (PISQ) 1993 Hepatitis B Vaccines (3 of 3 - 19+ 3-dose series) 03/04/2016 01/08/2016, 08/05/2007 Mammogram 10/03/2022 10/03/2020 Depression Screening 11/26/2024 11/27/2023, 11/27/19 COVID-19 Vaccine ( season) 2025 Pap Smear 04/15/2025 04/15/2022, 01/27/2022 SDOH Screening 10/04/2025 10/04/2024 Disability Screening 10/17/2025 10/17/2024 Influenza Vaccine (#1) 2026 , 06/23/2019, 07/01/2018, Additional history exists Postponed from 03/06/2025 (Patient Refused) Alcohol/Substance Use Screening 04/10/2026 04/10/2025 Tobacco Screening 04/10/2026 04/10/2025 Lipid Panel 06/14/2026 06/14/2021, 04/03/2020 Cervical Cancer [...] 06/07/2025 10:29 AM EST Chronic pain syndrome POCT INR Routine 04/10/2025 2:35 PM EDT Anticoagulated on Coumadin HM PAP/HPV Routine 04/15/2022 ZZZ HISTORICAL HEPATITIS C AB W/REFL TO HCV RNA, QN, PCR Routine 06/14/2021 2:35 PM EST HIV 1/2 ANTIGEN/ANTIBODY, FOURTH GENERATION W/RFL Routine 06/14/2021 2:35 PM EST LIPID PANEL, STANDARD Routine 06/14/2021 2:35 PM EST MAMMOGRAM GENERIC Routine 10/03/2020 1:3 0 PM EDT from Last 3 Months or Most Recently Relevant to Health Maintenance Results * POCT JOHN-14 Urine Drug Screen [...] AM EST . Internal Pass Control Lot# [id number] Exp: 04-11-26 us Kasey Taylor ANP POINT OF CARE TEST ENTER/EDIT OR DERABLES Final Result * POCT INR (04/10/2025 2:35 PM EDT) INR 2.6 QC Media Lot # [id number] Lot# Expiration Date ,694 Blood Capillary blood specimen / Unknown 04/10/2025 2:35 PM EDT us Kasey Taylor ANP POINT OF CARE TEST ENTER/EDIT OR DERABLES Final Result * Hm Pap Smear (04/15/2022) Pathologist [facility] Pap Negative for intraephithelial lesion or malignancy Negative for intraephithelial lesion or malignancy, Other HPV Undetected [facility] Provider HEALTH MAINTENANCE Final Result * HEPATITIS C AB W/REFL TO HCV RNA, QN, PCR (06/14/2021 2:35 PM EST) Pathologist [facility] HEPATITIS C ANTIBODY NON-REACT FLOR NON-REACT FLOR [facility] INDEX 0.01 <1.00 [facility] Comment: HCV antibody was non-reactive. There is no laboratory evidence of HCV infection. In most cases, no further action is required. However, if recent HCV exposure is suspected, a test for HCV RNA (test code 10455) is suggested. For additional information please refer to http://education.RedKLEVER.Ecloud ([employer]) Information and Technology/faq/WUV59y0 (This link is being provided for informational/ educational purposes only.) 06/14/2021 2:35 PM EST us Kasey Taylor ANP HISTORICAL/NON ORDERABLE LABS Fi nal Result [facility] [address] * HIV 1/2 ANTIGEN/ANTIBODY,FOURTH GENERATION W/RFL (06/14/2021 2:35 PM EST) [facility] HIV-1/2 ANTIGEN AND ANTIBODIES, 4TH GENERATION W/ REFLEX NON-REACT FLOR NON-REACT FLOR [facility] Comment: HIV-1 antigen and HIV-1/HIV-2 [...] purpose. For additional information please refer to http://Blue Tornado.[facility]/faq/BHH859 (This link is being provided for informational/ educational purposes only.) The performance of this assay has not been clinically validated in patients less than 2 years old. 06/14/2021 2:35 PM EST [facility] LAB BLOOD ORDERABLES Final Resul t Performing Organization Address City/[facility] Co de Phone Number [facility] [address] * (ABNORMAL) LIPID PANEL, STANDARD (06/14/2021 2:35 PM EST) [facility] Chol/HDLC Ratio 3.6 <5.0 (calc) [facility] Cholesterol, Total 150 <200 mg/dL [facility] HDL Cholesterol 42(L) > OR = 50 mg/dL [facility] LDL Cholesterol 86 mg/dL (calc) [facility] Comment: Reference range: <100 Desirable range <100 mg/dL for primary prevention; <70 mg/dL for patients with CHD or diabetic patients with > or = 2 CHD risk factors. LDL-C is now calculated using the Shakir calculation, which is a validated novel method providing better accuracy than the Friedewald equation in the estimation of LDL-C. Pranav SALTER et al. XIMENA. 2013;310(19): 3190-4930 (http://education.[employer].Ecloud ([place]) Information and Technology/faq/XTP195) Non-HDL Cholesterol 108 <130 mg/dL (calc) [facility] Comment: For patients with diabetes plus 1 major ASCVD risk factor, treating to a non-HDL-C goal of <100 mg/dL (LDL-C of <70 mg/dL) is considered a therapeutic option. Triglycerides 123 <150 mg/dL [facility] 06/14/2021 2:35 PM EST Kasey [facility] LAB BLOOD ORDERABLES Final Resul t [facility] [address] * Mammography Report 1 (10/03/2020 1:30 PM EDT) Anatomical Region Laterality Modality Breast Bilateral Mammography 10/03/2020 1:30 PM EDT Narrative 10/03/2020 7:09 PM EDT Refer to the Notes tab for result details [facility] Procedure: Mammography Report 1 Procedure Note Provider, MD Guzman - 09/27/2022 Refer to the Notes tab for result details [facility] Procedure: Mammography Report 1 Morteza Salter PROCESS SPECIALIST IMG BI PROCEDURES Final Res ult from Last 3 Months or Most Recently Relevant to Health Maintenance Insurance [employer] C3 Care Teams Traffic Line Painter Relationship Specialty Start Date End Date Kasey Taylor ANP [address] [place] [address] PCP - General Family Medicine 02/27/21 Ran Gallegos MD [address] [place] [address] Cardiology 06/17/24
--- OUTSIDE RECORDS SUMMARY | 2025-06-07 11:12 | XMS_ITS | Encounter Summary ---
Author Organization [employer] Address [address] [place] [address] 7t [place] [address] Care Team Providers Care Appeals Board Referee Name Role Phone Kasey Taylor Primary Care Provider [phone] Ran Gallegos MD Unavailable [phone] Reason for Visit * Reason Onset Date Comments Med Refill 03/02/2025 Encounter Details Date Type Department Care Team (Late st Contact Info) Description 03/02/2025 Telephone [facility] [address] [place], [place] [phone] Kasey Taylor ANP [address] [place], [place] [phone] Med Refill Social History Tobacco Use Types [...] 50 MG tablet To be sent to: [facility] - [place], [place] - [id number] - [place], [place] - [address] documented in this encounter Plan of Treatment Upcoming Encounters Date Type Department Care Team (Late st Contact Info) Description 07/10/2025 3:00 PM EST Office Visit [facility] [address] [place], [place] [phone] Kasey Taylor ANP [address] [place] [address] 09/14/2025 10:30 AM EDT Clinical Support [facility] [address] [place] [address] Shy Ordoñez, RN [address] [place] [address] documented as of this encounter Visit Diagnoses Not on filedocumented in this encounter Additional Health Concerns Assessment Noted Time PHQ-9 Depression Total Score: 3 11/27/19 24 2:18 PM EDT documented as of this encounter Care Teams Appeals Board Referee Relationship Specialty Start Date End Date Kasey Taylor ANP [address] [place] [address] PCP - General Family Medicine 02/27/21 Ran Gallegos MD [address] [place] [address] Cardiology 06/17/24 documented as of this encounter
--- OUTSIDE RECORDS SUMMARY | 2025-06-07 11:12 | XMS_ITS | Encounter Summary ---
Author Organization [employer] Address [address] [place] [address] 7t [place] [address] Care Team Providers Care Car Shagger Name Role Phone Kasey Taylor Primary Care Provider [phone] Ran Gallegos MD Unavailable [phone] Encounter Details Date Type Department Care Team (Late st Contact Info) Description 04/03/2023 Abstract [facility] [address] [place] [address] Kasey Taylor ANP [address] [place] [address] Social History Tobacco Use Types Packs/Day Years [...] Visit [facility] [address] [place] [address] [phone] Kasey Taylor ANP [address] [place] [address] [phone] 09/14/2025 10:30 AM EDT Clinical Support [facility] [address] [facility] [place] [address] Shy Ordoñez, RN [address] [place] [address] documented as of this encounter Procedures Procedure Name Priority Date/Time Associated Diagnosis Comments PAP/HPV Routine 04/15/2022 documented in this encounter Results * Pap Smear (04/15/2022) Pap Negative for intraephithelial lesion or malignancy Negative for intraephithelial lesion or malignancy, Other HPV Undetected us Historical Provider HEALTH MAINTENANCE Final Result documented in this encounter Visit Diagnoses Not on filedocumented in this encounter Care Teams Car Shagger Relationship Specialty Start Date End Date Kasey Taylor ANP [address] [place] [address] PCP - General Family Medicine 02/27/21 Ran Gallegos MD [address] [place] [address] Cardiology 06/17/24 documented as of this encounter
--- OUTSIDE RECORDS SUMMARY | 2025-06-07 11:12 | XMS_ITS | Encounter Summary ---
Author Organization [employer] Address [address] [facility] 7t [place] [address] Care Team Providers Care Cardiology Technician Name Role Phone Kasey Taylor Primary Care Provider [phone] Ran Gallegos MD Unavailable [phone] Reason for Visit * Reason Comments Med Refill Encounter Details Date Type Department Care Team ([facility] st Contact Info) Description 02/14/2025 Refill [facility] [address] [place], [place] [phone] Kasey Taylor ANP [address] [place] [address] Chronic pain syndrome Social History Tobacco Use [...] the past 12 months, has t he [employer] gas, oil or water company threatened to [...] Description 07/10/2025 3:00 PM EST Office Visit [facility] [address] [place] [address] Kasey Taylor ANP [address] [place] [address] 09/14/2025 10:30 AM EDT Clinical Support [facility] [address] [place] [address] Shy Ordoñez, BONNIE [address] [place] [address] documented as of this encounter Visit Diagnoses Diagnosis Chronic pain syndrome documented in this encounter Additional Health Concerns Assessment Noted Time PHQ-9 Depression Total Score: 3 11/27/19 24 2:18 PM EDT documented as of this encounter Care Teams Cardiology Technician Relationship Specialty Start Date End Date Kasey Taylor ANP [address] [place] [address] PCP - General Family Medicine 02/27/21 Rna Gallegos MD [address] [facility] [place] [address] Cardiology 06/17/24 documented as of this encounter
--- OUTSIDE RECORDS SUMMARY | 2025-06-07 11:12 | XMS_ITS | Clinical Summary ---
Author Organization [facility] Address [address] [address] Phone Care Team Providers Care Third Steel Pourer Name Role Phone Mayur Mendez DIRECTOR STATISTICAL PROGRAMMING Primary Care Provider [phone] Allergies No known active allergies Active Problems [...] file Medical Devices Not on file Insurance [facility] [place] [address] [place] [address] [place] [address] [place] [address] [facility] [place] [address] [place] [address] [place] [address] [place] [address] [facility] Care Teams Third Steel Pourer Relationship Specialty Start Date End Date Mayur Mendez NP [address] [place] [address] PCP - General Family Medicine 05/24/14 Additional Source Comments The information contained in this document represents components of the legal health record. It is not the complete legal health record.[facility]
--- OUTSIDE RECORDS SUMMARY | 2025-06-07 11:12 | XMS_ITS | Encounter Summary ---
Author Organization [employer] Address [address] [facility] 7t [place] [address] Care Team Providers Care Java Programmer Analyst Name Role Phone Kasey Taylor Primary Care Provider [phone] Ran Gallegos MD Unavailable [phone] Reason for Visit * Reason Onset Date Comments Med Refill 04/04/2025 Encounter Details Date Type Department Care Team (Late st Contact Info) Description 04/04/2025 Telephone [facility] [address] [place], [place] [phone] Kasey Taylor ANP [address] [place], [place] [phone] Med Refill Social History Tobacco Use Types [...] * Telephone Encounter - Renan Mcclure - 04/04/2025 12:20 PM EDT TC from pt requesting medication refill. Medications needing refill : traMADol (Ultram) 50 MG tablet To be sent to: [facility] - [place], [place] - [phone] - [place] - [address] documented in this encounter Plan of Treatment Upcoming Encounters Date Type Department Care Team (Late st Contact Info) Description 07/10/2025 3:00 PM EST Office Visit [facility] [address] [place] [address] Kasey Taylor ANP [address] [place] [address] 09/14/2025 10:30 AM EDT Clinical Support [facility] [address] [place] [address] Shy Ordoñez, BONNIE [address] [place] [address] documented as of this encounter Visit Diagnoses Not on filedocumented in this encounter Additional Health Concerns Assessment Noted Time PHQ-9 Depression Total Score: 3 11/27/19 24 2:18 PM EDT documented as of this encounter Care Teams Java Programmer Analyst Relationship Specialty Start Date End Date Kasey Taylor ANP [address] [place] [address] PCP - General Family Medicine 02/27/21 Ran Gallegos MD [address] [place] [address] Cardiology 06/17/24 documented as of this encounter
--- OUTSIDE RECORDS SUMMARY | 2025-06-07 11:12 | XMS_ITS | Encounter Summary ---
Author Organization [employer] Address [address] [place] [address] 7 [place] [address] Care Team Providers Care Digital X Ray Service Engineer Name Role Phone Kasey Taylor Primary Care Provider [phone] Ran Gallegos MD Unavailable [phone] Reason for Visit * Reason Onset Date Comments Med Refill 09/28/2023 Encounter Details Date Type Department Care Team (Late st Contact Info) Description 09/28/2023 Telephone [facility] MEDICINE 230 [place], [place] [phone] Kasey Taylor ANP 230 [place], [place] [phone] Med Refill Social History Tobacco Use Types [...] 50 MG tablet To be sent to: [facility] - [place], [place] documented in this encounter Plan of Treatment Upcoming Encounters Date Type Department Care Team (Late st Contact Info) Description 07/10/2025 3:00 PM EST Office Visit [facility] MEDICINE 230 [place] [address] Kasey Taylor ANP 230 [place] [address] 09/14/2025 10:30 AM EDT Clinical Support [facility] CHC MED & PEDS 505 [place], [place] [phone] Shy Ordoñez, RN 505 [place] [address] documented as of this encounter Visit Diagnoses Not on filedocumented in this encounter Care Teams Digital X Ray Service Engineer Relationship Specialty Start Date End Date Kasey Taylor ANP [address] [place] [address] PCP - General Family Medicine 02/27/21 [place] [id number] Cardiology 06/17/24 documented as of this encounter
--- OUTSIDE RECORDS SUMMARY | 2025-06-07 11:12 | XMS_ITS | Encounter Summary ---
Author Organization [employer] Address [address] [place] [address] 7t [place] [address] Care Team Providers Care Marketing Operations Coordinator Name Role Phone Kasey Taylor Primary Care Provider [phone] Ran Gallegos MD Unavailable [phone] Reason for Visit * Reason Onset Date Comments Med Refill 05/12/2024 Encounter Details Date Type Department Care Team (Late st Contact Info) Description 05/12/2024 Telephone [facility] MEDICINE 230 [place], [place] [phone] Kasey Taylor ANP 230 [place], [place] [phone] Med Refill Social History Tobacco Use Types [...] the past 12 months, has t he [employer], gas, oil or water company threatened to [...] 10 MG tablet To be sent to: [facility] - [place], [place] - [id number] - [place] - [address] documented in this encounter Plan of Treatment Upcoming Encounters Date Type Department Care Team ([facility] st Contact Info) Description 07/10/2025 3:00 PM EST Office Visit [facility] MEDICINE 230 [place] [address] Kasey Taylor ANP 230 [place] [address] 09/14/2025 10:30 AM EDT Clinical Support [facility] CHC MED & PEDS 505 [place] [address] Shy Ordoñez, RN 505 [place] [address] documented as of this encounter Visit Diagnoses Not on filedocumented in this encounter Additional Health Concerns Assessment Noted Time PHQ-9 Depression Total Score: 3 11/27/19 24 2:18 PM EDT documented as of this encounter Care Teams Marketing Operations Coordinator Relationship Specialty Start Date End Date Kasey Taylor ANP 230 [place] [address] PCP - General Family Medicine 02/27/21 Ran Gallegos MD [address] [place] [address] Cardiology 06/17/24 documented as of this encounter
--- OUTSIDE RECORDS SUMMARY | 2025-06-07 11:12 | XMS_ITS | Encounter Summary ---
Author Organization [employer] Address [address] [place] [address] 7t [place] [address] Care Team Providers Care Land Mobile Radio Technician Name Role Phone Kasey Taylor Primary Care Provider [phone] Ran Gallegos MD Unavailable [phone] Reason for Visit * Reason Onset Date Comments Appointment Request 09/23/2023 Encounter Details Date Type Department Care Team (Late st Contact Info) Description 09/23/2023 Telephone [facility] MEDICINE 230 [place], [place] [phone] Kasey Taylor ANP 230 [place], [place] [phone] Appointment Request Social History Tobacco Use Types [...] from pt requesting to r/s appt for REDYE HAND on 09/22/23 documented in this encounter Plan of Treatment Upcoming Encounters Date Type Department Care Team (Late st Contact Info) Description 07/10/2025 3:00 PM EST Office Visit [facility] MEDICINE 230 [place] [address] Kasey Taylor ANP 230 [place], [place] 09/14/2025 10:30 AM EDT Clinical Support [facility] CHC MED & PEDS 505 [place], [place] [phone] Shy Ordoñez, BONNIE 505 [place] [address] documented as of this encounter Visit Diagnoses Not on filedocumented in this encounter Care Teams Land Mobile Radio Technician Relationship Specialty Start Date End Date Kasey Taylor ANP [address] [place] [address] PCP - General Family Medicine 02/27/21 [place] [address] Cardiology 06/17/24 documented as of this encounter
--- OUTSIDE RECORDS SUMMARY | 2025-06-07 11:12 | XMS_ITS | Encounter Summary ---
Author Organization [employer] Address [address] [facility] 7t [place] [address] Care Team Providers Care Print Line Tailer Name Role Phone Kasey Taylor Primary Care Provider [phone] Ran Gallegos MD Unavailable [phone] Reason for Visit * Reason Comments Med Refill Encounter Details Date Type Department Care Team ([facility] st Contact Info) Description 03/10/2025 Refill [facility] CHC MED & PEDS [address] [place], [place] [phone] Kasey Taylor ANP 230 [place] [address] Primary insomnia Social History Tobacco Use Types [...] the past 12 months, has t he [employer], gas, oil or water [employer] threatened to shut off services in your [...] Description 07/10/2025 3:00 PM EST Office Visit [facility] MEDICINE 230 [place] [address] Kasey Taylor ANP 230 [place] [address] 09/14/2025 10:30 AM EDT Clinical Support [facility] CHC MED & PEDS 505 [place] [address] Shy Ordoñez, BONNIE 505 [place] [address] documented as of this encounter Visit Diagnoses Diagnosis Primary insomnia Persistent disorder of initiating or maintaining sleep documented in this encounter Additional Health Concerns Assessment Noted Time PHQ-9 Depression Total Score: 3 11/27/19 2:18 PM EDT documented as of this encounter Care Teams Print Line Tailer Relationship Specialty Start Date End Date Kasey Taylor ANP [address] [place] [address] PCP - General Family Medicine 02/27/21 Ran Gallegos MD [address] [place] [address] Cardiology 06/17/24 documented as of this encounter
--- OUTSIDE RECORDS SUMMARY | 2025-06-07 11:12 | XMS_ITS | Encounter Summary ---
Author Organization [employer] Address [address] [place] [address] 7t [place] [address] Care Team Providers Care Echometer Engineer Name Role Phone Kasey Taylor Primary Care Provider [phone] Ran Gallegos MD Unavailable [phone] Reason for Visit * Reason Onset Date Comments Med Refill 09/10/2022 Encounter Details Date Type Department Care Team (Late st Contact Info) Description 09/10/2022 Telephone [facility] MEDICINE 230 [place], [place] [phone] Kasey Taylor ANP 230 [place], [place] [phone] Med Refill Social History Tobacco Use Types [...] Description 07/10/2025 3:00 PM EST Office Visit [facility] MEDICINE 230 [place] [address] Kasey Taylor ANP 230 [place] [address] 09/14/2025 10:30 AM EDT Clinical Support [facility] CHC MED & PEDS 505 [place], [place] [phone] Shy Ordoñez, BONNIE 505 [place], [place] [phone] documented as of this encounter Visit Diagnoses Not on filedocumented in this encounter Care Teams Echometer Engineer Relationship Specialty Start Date End Date Kasey Taylor ANP [address] [place] [address] PCP - General Family Medicine 02/27/21 [place] [address] Cardiology 06/17/24 documented as of this encounter
--- OUTSIDE RECORDS SUMMARY | 2025-06-07 11:12 | XMS_ITS | Encounter Summary ---
Author Organization [employer] Address [address] [facility] 7t [place] [address] Care Team Providers Care Route Sales Representative Name Role Phone Kasey Taylor Primary Care Provider [phone] Ran Gallegos MD Unavailable Reason for Visit * Reason Comments Med Refill Encounter Details Date Type Department Care Team ([facility] st Contact Info) Description 11/04/2024 Refill [facility] MEDICINE 230 [place], [place] [phone] Kasey Taylor ANP 230 [place], [place] [phone] Mild asthma without complication, unspecified whether persistent [...] PM EST Office Visit [facility] MEDICINE 230 [place] [address] Kasey Taylor ANP 230 [place] [address] 09/14/2025 10:30 AM EDT Clinical Support [facility] CHC MED & PEDS 505 [place] [address] Shy Ordoñez, BONNIE 505 [place] [address] documented as of this encounter Visit Diagnoses Diagnosis Mild asthma without complication, unspecified whether persistent documented in this encounter Additional Health Concerns Assessment Noted Time PHQ-9 Depression Total Score: 3 11/27/19 24 2:18 PM EDT documented as of this encounter Care Teams Route Sales Representative Relationship Specialty Start Date End Date Kasey Taylor ANP [address] [place] [address] PCP - General Family Medicine 02/27/21 Ran Gallegos MD [address] [place] [address] Cardiology 06/17/24 documented as of this encounter
--- OUTSIDE RECORDS SUMMARY | 2025-06-07 11:12 | XMS_ITS | Encounter Summary ---
Author Organization [employer] Address [address] [place] [address] 7t [place] [address] Care Team Providers Care Refuse Collector Supervisor Name Role Phone Kasey Taylor Primary Care Provider [phone] Ran Gallegos MD Unavailable [phone] Reason for Visit * Reason Onset Date Comments Med Refill 02/14/2025 Encounter Details Date Type Department Care Team (Late st Contact Info) Description 02/14/2025 Telephone [facility] MEDICINE 230 [place], [place] [phone] Kasey Taylor ANP 230 [place], [place] [phone] Med Refill Social History Tobacco Use Types [...] 50 MG tablet To be sent to: [facility] - [place], [place] - [id number] - [place] - [address] documented in this encounter Plan of Treatment Upcoming Encounters Date Type Department Care Team (Late st Contact Info) Description 07/10/2025 3:00 PM EST Office Visit [facility] MEDICINE 230 [place] [address] Kasey Taylor ANP 230 [place] [address] 09/14/2025 10:30 AM EDT Clinical Support [facility] CHC MED & PEDS [address] [place] [address] Shy Ordoñez RN 505 [place] [address] documented as of this encounter Visit Diagnoses Not on filedocumented in this encounter Additional Health Concerns Assessment Noted Time PHQ-9 Depression Total Score: 3 11/27/19 24 2:18 PM EDT documented as of this encounter Care Teams Refuse Collector Supervisor Relationship Specialty Start Date End Date Kasey Tayolr ANP 230 [place] [address] PCP - General Family Medicine 02/27/21 Ran Gallegos MD [address] [place] [address] Cardiology 06/17/24 documented as of this encounter
--- OUTSIDE RECORDS SUMMARY | 2025-06-07 11:12 | XMS_ITS | Encounter Summary ---
Author Organization [employer] Address [address] [place] [address] 7t [place] [address] Care Team Providers Care Cane Cutter Name Role Phone Kasey Taylor Primary Care Provider [phone] Ran Gallegos MD Unavailable [phone] Reason for Visit * Reason Onset Date Comments Medication Question 03/10/2024 Encounter Details Date Type Department Care Team ([facility] st Contact Info) Description 03/10/2024 Telephone [facility] MEDICINE 230 [place], [place] [phone] Kasey Taylor ANP 230 [place], [place] [phone] Medication Question Social History Tobacco Use Types [...] Miscellaneous Notes * Telephone Encounter - Matthieu Warren - 03/10/2024 10:11 AM EDT Tc from pt calling in regards to traMADol (Ultram) 50 MG tablet stating she only received 21 tablets which will not last her for the full month so she is requesting a call back to clarify. Please contact pt at [phone]. (Romanian Speaker) documented in this encounter Plan of Treatment Upcoming Encounters Date Type Department Care Team ([facility] st Contact Info) Description 07/10/2025 3:00 PM EST Office Visit [facility] MEDICINE 230 [place] [address] Kasey Taylor ANP 230 [place] [address] 09/14/2025 10:30 AM EDT Clinical Support [facility] CHC MED & PEDS 505 [place] [address] Shy Ordoñez, BONNIE 505 [place] [address] documented as of this encounter Visit Diagnoses Not on filedocumented in this encounter Additional Health Concerns Assessment Noted Time PHQ-9 Depression Total Score: 3 11/27/19 2:18 PM EDT documented as of this encounter Care Teams Cane Cutter Relationship Specialty Start Date End Date Kasey Taylor ANP [address] [place] [address] PCP - General Family Medicine 02/27/21 Ran Gallegos MD 21 [facility] [place] [address] Cardiology 06/17/24 documented as of this encounter
--- OUTSIDE RECORDS SUMMARY | 2025-06-07 11:12 | XMS_ITS | Encounter Summary ---
Author Organization [employer] Address [address] [place] [address] 7 [place] [address] Care Team Providers Care Electrical And Electronic Assembler Name Role Phone Kasey Taylor Primary Care Provider [phone] Ran Gallegos MD Unavailable [phone] Reason for Visit * Reason Onset Date Comments Medication Question 09/11/2023 Encounter Details Date Type Department Care Team (Late st Contact Info) Description 09/11/2023 Telephone [facility] MEDICINE 230 [place], [place] [phone] Kasey Taylor ANP 230 [place], [place] [phone] Medication Question Social History Tobacco Use Types [...] - 09/11/2023 4:24 PM EST Tc from [facility] stating that medication FaBB 2.2-25-1 MG tablet is not available that it may be discontinued but is requesting if it can be substituted for Folbee or Foltex 2.2 mg Please contact pharmacy @ [phone] documented in this encounter Plan of Treatment Upcoming Encounters Date Type Department Care Team (Late st Contact Info) Description 07/10/2025 3:00 PM EST Office Visit [facility] MEDICINE 230 [place] [address] Kasey Taylor ANP 230 [place] [address] 09/14/2025 10:30 AM EDT Clinical Support [facility] CHC MED & PEDS 505 [place] [address] Shy Ordoñez, BONNIE 505 [place], [place] documented as of this encounter Visit Diagnoses Not on filedocumented in this encounter Care Teams Electrical And Electronic Assembler Relationship Specialty Start Date End Date Kasey Taylor ANP [address] [place] [address] PCP - General Family Medicine 02/27/21 Ran Galleg[place] [address] Cardiology 06/17/24 documented as of this encounter
--- OUTSIDE RECORDS SUMMARY | 2025-06-07 11:12 | XMS_ITS | Encounter Summary ---
Author Organization [employer] Address [address] [place] [address] 7 [place] [address] Care Team Providers Care Foreign Exchange Services Manager Name Role Phone Kasey Taylor Primary Care Provider [phone] Ran Gallegos MD Unavailable [phone] Reason for Visit * Reason Comments Med Refill Encounter Details Date Type Department Care Team (Late Contact Info) Description 03/24/2023 Refill [facility] CHC MED & PEDS 505 [place], [place] [phone] Kasey Taylor ANP [address] [place] [address] [phone] Mild asthma without complication, unspecified whether persistent [...] 3:00 PM EST Office Visit [facility] MEDICINE [address] [place] [address] [phone] Kasey Taylor ANP 230 [place], [place] [phone] 09/14/2025 10:30 AM EDT Clinical Support [facility] CHC MED & PEDS 505 [place] [address] Shy Ordoñez, BONNIE 505 [place] [address] documented as of this encounter Visit Diagnoses Diagnosis Mild asthma without complication, unspecified whether persistent documented in this encounter Care Teams Foreign Exchange Services Manager Relationship Specialty Start Date End Date Kasey Taylor ANP [address] [place] [address] PCP - General Family Medicine 02/27/21 Ran Gallegos MD 21 [facility] [place] [address] Cardiology 06/17/24 documented as of this encounter
--- OUTSIDE RECORDS SUMMARY | 2025-06-07 11:12 | XMS_ITS | Encounter Summary ---
Author Organization [employer] Address [address] [place] [address] 7t [place] [address] Care Team Providers Care Chuck Tender Name Role Phone Kasey Taylor Primary Care Provider [phone] Ran Gallegos MD Unavailable [phone] Reason for Visit * Reason Onset Date Comments Med Refill 10/13/2022 Encounter Details Date Type Department Care Team (Late st Contact Info) Description 10/13/2022 Telephone [facility] MEDICINE 230 [place], [place] [phone] Kasey Taylor ANP 230 [place], [place] [phone] Med Refill Social History Tobacco Use Types [...] (Ultram) 50 MG tablet Please sent to [facility] - [place] - [id number] - [place] - [address] documented in this encounter Plan of Treatment Upcoming Encounters Date Type Department Care Team (Late st Contact Info) Description 07/10/2025 3:00 PM EST Office Visit [facility] MEDICINE 230 [place] [address] Kasey Taylor ANP 230 [place] [address] 09/14/2025 10:30 AM EDT Clinical Support [facility] CHC MED & PEDS 505 [place] [address] Shy Ordoñez, BONNIE 505 [place] [address] documented as of this encounter Visit Diagnoses Not on filedocumented in this encounter Care Teams Chuck Tender Relationship Specialty Start Date End Date Kasey Taylor ANP [address] [place] [address] PCP - General Family Medicine 02/27/21 Ran [place] [address] Cardiology 06/17/24 documented as of this encounter
== END 2025-06-07 09:57 | disposition home or self-care (01) ==
LOC: HO.CHCLDS 09:56
PROVIDERS: Visit Provider Internal Medicine
DX: L81.9 Disorder of pigmentation, unspecified (principal)
CPT/HCPCS: 36415; 83036; 83525

== ENCOUNTER 2025-06-09 09:21 | Outpatient (REF) | payer MEDICAID, SELFPAY ==
[2025-06-09 11:25] LABS: MANUAL DIFF FLAG NO
[2025-06-09 11:42] LABS: Hematocrit 39.7 % (37.0-47.0); Hemoglobin 12.7 g/dl (12.0-16.0); Imm Gran Abs Auto 0.02 X10*3/uL (0.00-0.03); Imm Gran Pct Auto 0.2 % (0.0-0.4); Lymphocytes Absolute Auto 2.7 X10*3/uL (1.2-4.9); Mean Corpuscular HGB Conc 32.0 g/dl (31.0-35.0); Mean Corpuscular Hemoglobin 29.1 pg (27.0-33.0); Mean Corpuscular Volume 90.8 fL (80.0-98.0); NRBC Abs Auto 0.000 X10*3/uL (0.0-0.012); NRBC Pct Auto 0.0 /100WBC (0.0-0.2); Platelet Count 166 X10*3/uL (160-400); Red Blood Count 4.37 X10*6/uL (4.20-5.50); White Blood Count 9.9 X10*3/uL (4.8-10.8)
[2025-06-09 12:23] LABS: Anion Gap 8 (12-20); Blood Urea Nitrogen 11 mg/dL (9-16); Calcium 8.7 mg/dL (8.4-10.2); Carbon Dioxide 24 mmol/L (22-29); Chloride 110 mmol/L (96-108); Estimated Glomerular Filt Rate > 60; Potassium 3.9 mmol/L (3.3-5.1); Sodium 138 mmol/L (135-145)
[2025-06-09 12:33] LABS: HBS Num1 1.94 mIU/mL (0-7.99); HBc Num1 0.11 S/CO (0.00-0.79); HBsAGNum1 0.22 S/CO (0.00-0.99); Hepatitis B Surface Antigen Negative (Negative); ~Hepatitis B Surface Antibody NONREACTIVE (Nonreactive)
[2025-06-09 12:41] LABS: Vitamin B12 411 pg/mL (200-900)
== END 2025-06-09 09:22 | disposition home or self-care (01) ==
LOC: HO.HHCL 09:21
PROVIDERS: PCP Nurse Practitioner Primary Care; Visit Provider Nurse Practitioner Primary Care
DX: Z11.59 Encounter for screening for other viral diseases (principal); G89.4 Chronic pain syndrome
CPT/HCPCS: 36415; 80048; 82306; 82607; 84443; 85025; 86704; 86706; 87340

== ENCOUNTER 2025-06-23 06:34 | Outpatient (REF) | payer MEDICAID, SELFPAY ==
--- NOTE | ~2025-06-23 | XR_ITS ---
EXAMINATION: XR PELVIS 1-2 VIEWS HISTORY: M25.559 - Pain in unspecified hip COMPARISON: Correlation is made to plain films of the bilateral hips dated 1525. FINDINGS: A single AP view of the pelvis is submitted. Osseous mineralization is normal. There is no fracture or dislocation. The hip and sacroiliac joint spaces are maintained. The soft tissues are unremarkable. XR/XR pelvis 1-2V IMPRESSION: Unremarkable examination of the pelvis. Electronically signed by: Cristiano Talley MD 06/23/2025 12:49 PM [facility]
--- OUTSIDE RECORDS SUMMARY | 2025-06-23 06:38 | XMS_ITS | Encounter Summary ---
Author Organization [employer] Address [address] [place] [address] 7 [place] [address] Care Team Providers Care Licensed Psychologist Director Name Role Phone Kasey Taylor Primary Care Provider [phone] Ran Gallegos MD Unavailable [phone] Reason for Visit * Reason Comments Med Refill Encounter Details Date Type Department Care Team ([facility] st Contact Info) Description 03/04/2024 Refill [facility] MEDICINE 230 [place] [address] Coretta Pascual MD 230 [place] [address] Chronic pain syndrome Social History Tobacco Use [...] 3:00 PM EST Office Visit [facility] MEDICINE 230 [place] [address] Kasey Taylor ANP 230 [place] [address] 09/14/2025 10:30 AM EDT Clinical Support [facility] CHC MED & PEDS 505 [place] [address] Shy Ordoñez, BONNIE 505 [place] [address] documented as of this encounter Visit Diagnoses Diagnosis Chronic pain syndrome documented in this encounter Additional Health Concerns Assessment Noted Time PHQ-9 Depression Total Score: 3 11/27/19 24 2:18 PM EDT documented as of this encounter Care Teams Licensed Psychologist Director Relationship Specialty Start Date End Date Kasey Taylor ANP [address] [place] [address] PCP - General Family Medicine 02/27/21 Ran Gallegos MD [address] [place] [address] Cardiology 06/17/24 documented as of this encounter
--- OUTSIDE RECORDS SUMMARY | 2025-06-23 06:38 | XMS_ITS | Encounter Summary ---
Author Organization [employer] Address [address] [place] [address] 7 [place] [address] Care Team Providers Care Information Systems Security Specialist Name Role Phone Kasey Taylor Primary Care Provider [phone] Ran Gallegos MD Unavailable [phone] Reason for Visit * Reason Onset Date Comments Med Refill 06/22/2023 Encounter Details Date Type Department Care Team (Late st Contact Info) Description 06/22/2023 Telephone [facility] MEDICINE 230 [place], [place] [phone] Kasey Taylor ANP 230 [place], [place] [phone] Med Refill Social History Tobacco Use Types [...] (Ultram) 50 MG tablet Please sent to [facility] [place] - [id number] - [place] - [address] documented in this encounter Plan of Treatment Upcoming Encounters Date Type Department Care Team (Late st Contact Info) Description 07/10/2025 3:00 PM EST Office Visit [facility] MEDICINE 230 [place] [address] Kasey Taylor ANP 230 [place] [address] 09/14/2025 10:30 AM EDT Clinical Support [facility] MED & PEDS 505 [place] [address] Shy Ordoñez, BONNIE 505 [place], [place] [phone] documented as of this encounter Visit Diagnoses Not on filedocumented in this encounter Care Teams Information Systems Security Specialist Relationship Specialty Start Date End Date Kasey Tayolr ANP [address] [place] [address] PCP - General Family Medicine 02/27/21 [place] [address] Cardiology 06/17/24 documented as of this encounter
--- OUTSIDE RECORDS SUMMARY | 2025-06-23 06:38 | XMS_ITS | Encounter Summary ---
Author Organization [employer] Address [address] [place] [address] 7t [place] [address] Care Team Providers Care Network Support Technician Name Role Phone Kasey Taylor Primary Care Provider [phone] Ran Gallegos MD Unavailable [phone] Encounter Details Date Type Department Care Team (Late st Contact Info) Description 08/12/2022 Telephone [facility] MEDICINE [address] [place] [address] Kasey Taylor ANP 230 [place] [address] Social History Tobacco Use Types Packs/Day Years [...] Description 07/10/2025 3:00 PM EST Office Visit [facility] MEDICINE [address] [place] [address] Kasey Taylor ANP 230 [place] [address] 09/14/2025 10:30 AM EDT Clinical Support [facility] MED & PEDS 505 [place] [address] Shy Ordoñez, BONNIE 505 [place] [address] documented as of this encounter Visit Diagnoses Not on filedocumented in this encounter Care Teams Network Support Technician Relationship Specialty Start Date End Date Kasey Taylor ANP [address] [place] [address] PCP - General Family Medicine 02/27/21 [place] [address] Cardiology 06/17/24 documented as of this encounter
--- OUTSIDE RECORDS SUMMARY | 2025-06-23 06:38 | XMS_ITS | Clinical Summary ---
Author Organization [facility] Address [address] [place] [address] Phone Care Team Providers Care Front End Software Engineer Name Role Phone Kasey Taylor NP Primary Care Provider [phone] Allergies No known active allergies Medical History [...] topic Insurance MEDICAID - [place] Care Teams Front End Software Engineer Relationship Specialty Start Date End Date Kasey Taylor NP [address] [place] [phone] PCP - General 11/06/23
--- OUTSIDE RECORDS SUMMARY | 2025-06-23 06:38 | XMS_ITS | Encounter Summary ---
Author Organization [employer] Address [address] [facility] 7t [place] [address] Care Team Providers Care Director Non Profit Name Role Phone Kasey Taylor Primary Care Provider [phone] Ran Gallegos MD Unavailable [phone] Reason for Visit * Reason Onset Date Comments Med Refill 05/15/2025 Encounter Details Date Type Department Care Team (Late st Contact Info) Description 05/15/2025 Telephone [facility] 230 [place], [place] [phone] Kasey Taylor ANP [address] [place], [place] [phone] Med Refill Social History Tobacco Use Types [...] back regarding prior message. Contact pt at [phone] * Telephone Encounter - Jennie Manriquez - 05/15/2025 10:27 AM EST TC from pt requesting medication refill. Medications needing refill : - traMADol (Ultram) 50 MG tablet To be sent to: - [facility] - [place], [place] - [id number] - [place] - [address] documented in this encounter Plan of Treatment Upcoming Encounters Date Type Department Care Team (Late st Contact Info) Description 07/10/2025 3:00 PM EST Office Visit [facility] [address] [place] [address] [phone] Kasey Taylor ANP [address] [place] [address] 09/14/2025 10:30 AM EDT Clinical Support [facility] 505 [place] [address] Shy Ordoñez, RN 505 [place] [address] documented as of this encounter Visit Diagnoses Not on filedocumented in this encounter Additional Health Concerns Assessment Noted Time PHQ-9 Depression Total Score: 3 11/27/19 24 2:18 PM EDT documented as of this encounter Care Teams Director Non Profit Relationship Specialty Start Date End Date Kasey Taylor ANP [address] [place] [address] PCP - General Family Medicine 02/27/21 Ran Gallegos [place] [address] Cardiology 06/17/24 documented as of this encounter
--- OUTSIDE RECORDS SUMMARY | 2025-06-23 06:38 | XMS_ITS | Encounter Summary ---
Author Organization [employer] Address [address] [facility] 7t [place] [address] Care Team Providers Care Auto Air Conditioning Installer Name Role Phone Kasey Taylor Primary Care Provider [phone] Ran Gallegos MD Unavailable [phone] Reason for Visit * Reason Comments Med Refill Encounter Details Date Type Department Care Team ([facility] st Contact Info) Description 03/10/2025 Refill [facility] MED [facility] PEDS [address] [place], [place] [phone] Kasey Taylor ANP 230 [place] [address] Primary insomnia Social History Tobacco Use Types [...] the past 12 months, has t he [employer], gas, oil or water [employer] threatened to shut off services in your [...] Description 07/10/2025 3:00 PM EST Office Visit [facility] 230 [place] [address] Kasey Taylor ANP [address] [place] [address] 09/14/2025 10:30 AM EDT Clinical Support [facility] 505 [place] [address] Shy Ordoñez, BONNIE 505 [place] [address] documented as of this encounter Visit Diagnoses Diagnosis Primary insomnia Persistent disorder of initiating or maintaining sleep documented in this encounter Additional Health Concerns Assessment Noted Time PHQ-9 Depression Total Score: 3 11/27/19 2:18 PM EDT documented as of this encounter Care Teams Auto Air Conditioning Installer Relationship Specialty Start Date End Date Kasey Taylor ANP [address] [place] [address] PCP - General Family Medicine 02/27/21 Ran Gallegos MD [address] [place] [address] Cardiology 06/17/24 documented as of this encounter
--- OUTSIDE RECORDS SUMMARY | 2025-06-23 06:38 | XMS_ITS | Encounter Summary ---
Author Organization [employer] Address 75 [facility] 7t [place] [address] Care Team Providers Care Agricultural Produce Sorter Name Role Phone Kasey Taylor Primary Care Provider [phone] Ran Gallegos MD Unavailable [phone] Reason for Visit * Reason Comments Med Refill Encounter Details Date Type Department Care Team ([facility] st Contact Info) Description 03/20/2025 Refill [facility] MED & PEDS [address] [place], [place] [phone] Kasey Taylor ANP 230 [place] [address] Primary insomnia; Chronic pain syndrome Social History [...] 3:00 PM EST Office Visit [facility] MEDICINE 230 [place] [address] Kasey Taylor ANP 230 [place] [address] 09/14/2025 10:30 AM EDT Clinical Support [facility] MED [facility] PEDS 505 [place] [address] Shy Ordoñez, BONNIE 505 [place] [address] documented as of this encounter Visit Diagnoses Diagnosis Primary insomnia Persistent disorder of initiating or maintaining sleep Chronic pain syndrome documented in this encounter Additional Health Concerns Assessment Noted Time PHQ-9 Depression Total Score: 3 11/27/19 2:18 PM EDT documented as of this encounter Care Teams Agricultural Produce Sorter Relationship Specialty Start Date End Date Kasey Taylor ANP [address] [place] [address] PCP - General Family Medicine 02/27/21 Ran Gallegos MD [address] [place] [address] Cardiology 06/17/24 documented as of this encounter
--- OUTSIDE RECORDS SUMMARY | 2025-06-23 06:38 | XMS_ITS | Encounter Summary ---
Author Organization [employer] Address [address] [place] [address] 7t [place] [address] Care Team Providers Care Parking Meter Mechanic Name Role Phone Kasey Taylor Primary Care Provider [phone] Ran Gallegos MD Unavailable [phone] Encounter Details Date Type Department Care Team (Late st Contact Info) Description 02/25/2023 Orders Only [facility] MED & PEDS 505 [place] [address] Beverley Scott LPN Social History Tobacco Use [...] Description 07/10/2025 3:00 PM EST Office Visit [facility] MEDICINE 230 [place], [place] [phone] Kasey Taylor ANP 230 [place] [address] 09/14/2025 10:30 AM EDT Clinical Support [facility] MED & PEDS 505 [place] [address] Shy Ordoñez, RN 505 [place] [address] documented as of this encounter Visit Diagnoses Not on filedocumented in this encounter Care Teams Parking Meter Mechanic Relationship Specialty Start Date End Date Kasey Taylor ANP [address] [place] [address] PCP - General Family Medicine 02/27/21 [place] [address] Cardiology 06/17/24 documented as of this encounter
--- OUTSIDE RECORDS SUMMARY | 2025-06-23 06:38 | XMS_ITS | Encounter Summary ---
Author Organization [employer] Address 75 [facility] 7t [place] [address] Care Team Providers Care Carbon Capture Power Plant Engineer Name Role Phone Kasey Taylor Primary Care Provider [phone] Ran Gallegos MD Unavailable [phone] Reason for Visit * Reason Comments Med Refill Encounter Details Date Type Department Care Team ([facility] st Contact Info) Description 11/04/2024 Refill [facility] MEDICINE 230 [place], [place] [phone] Kasey Taylor ANP 230 [place], [place] [phone] Mild asthma without complication, unspecified whether persistent [...] Description 07/10/2025 3:00 PM EST Office Visit [facility] MEDICINE 230 [place] [address] Kasey Taylor ANP 230 [place] [address] 09/14/2025 10:30 AM EDT Clinical Support [facility] MED & PEDS 505 [place] [address] Shy Ordoñez, BONNIE 505 [place] [address] documented as of this encounter Visit Diagnoses Diagnosis Mild asthma without complication, unspecified whether persistent documented in this encounter Additional Health Concerns Assessment Noted Time PHQ-9 Depression Total Score: 3 11/27/19 24 2:18 PM EDT documented as of this encounter Care Teams Carbon Capture Power Plant Engineer Relationship Specialty Start Date End Date Kasey Taylor ANP [address] [place] [address] PCP - General Family Medicine 02/27/21 Ran Gallegos MD [address] [place] [address] Cardiology 06/17/24 documented as of this encounter
--- OUTSIDE RECORDS SUMMARY | 2025-06-23 06:38 | XMS_ITS | Encounter Summary ---
Author Organization [employer] Address [address] [place] [address] 7t [place] [address] Care Team Providers Care Dulite Machine Bluer Name Role Phone Kasey Taylor Primary Care Provider Ran Gallegos MD Unavailable [phone] Reason for Visit * Reason Onset Date Comments Medication Question 03/10/2024 Encounter Details Date Type Department Care Team ([facility] st Contact Info) Description 03/10/2024 Telephone [facility] 230 [place], [place] [phone] Kasey Taylor ANP 230 [place], [place] [phone] Medication Question Social History Tobacco Use Types [...] back to clarify. Please contact pt at [phone]. (Chinese Speaker) documented in this encounter Plan of Treatment Upcoming Encounters Date Type Department Care Team ([facility] st Contact Info) Description 07/10/2025 3:00 PM EST Office Visit [facility] 230 [place] [address] Kasye Taylor ANP 230 [place] [address] 09/14/2025 10:30 AM EDT Clinical Support [facility] 505 [place] [address] Shy Ordoñez, BONNIE 505 [place] [address] documented as of this encounter Visit Diagnoses Not on filedocumented in this encounter Additional Health Concerns Assessment Noted Time PHQ-9 Depression Total Score: 3 11/27/19 2:18 PM EDT documented as of this encounter Care Teams Dulite Machine Bluer Relationship Specialty Start Date End Date Kasey Taylor ANP [address] [place] [address] PCP - General Family Medicine 02/27/21 Ran Gallegos MD [address] [facility] [place] [address] Cardiology 06/17/24 documented as of this encounter
--- OUTSIDE RECORDS SUMMARY | 2025-06-23 06:38 | XMS_ITS | Encounter Summary ---
Author Organization [employer] Address [address] [place] [address] 7t [place] [address] Care Team Providers Care Executive Pastry Chef Name Role Phone Kasey Taylor Primary Care Provider [phone] Ran Gallegos MD Unavailable [phone] Reason for Visit * Reason Onset Date Comments Med Refill 06/12/2025 Encounter Details Date Type Department Care Team (Late st Contact Info) Description 06/12/2025 Telephone [facility] 230 [place], [place] [phone] Kasey Taylor ANP 230 [place], [place] [phone] Med Refill Social History Tobacco Use Types [...] * Telephone Encounter - Renan Mcclure - 06/12/2025 11:01 AM EST TC from pt requesting medication refill. Medications needing refill : traMADol (Ultram) 50 MG tablet To be sent to: [facility] - [place], [place] - [id number] - [place], [place] - [address] documented in this encounter Plan of Treatment Upcoming Encounters Date Type Department Care Team (Late st Contact Info) Description 07/10/2025 3:00 PM EST Office Visit [facility] 230 [place] [address] Kasey Taylor ANP 230 [place] [address] 09/14/2025 10:30 AM EDT Clinical Support [facility] [address] [place] [address] Shy Ordoñez, BONNIE 505 [place] [address] documented as of this encounter Visit Diagnoses Not on filedocumented in this encounter Additional Health Concerns Assessment Noted Time PHQ-9 Depression Total Score: 3 11/27/19 24 2:18 PM EDT documented as of this encounter Care Teams Executive Pastry Chef Relationship Specialty Start Date End Date Kasey Taylor ANP 230 [place] [address] PCP - General Family Medicine 02/27/21 Ran Gallegos MD [address] [place] [address] Cardiology 06/17/24 documented as of this encounter
--- OUTSIDE RECORDS SUMMARY | 2025-06-23 06:38 | XMS_ITS | Encounter Summary ---
Author Organization [employer] Address [address] [place] [address] 7t [place] [address] Care Team Providers Care Medical Tech Name Role Phone Kasey Taylor Primary Care Provider [phone] Ran Gallegos MD Unavailable [phone] Reason for Visit * Reason Onset Date Comments Med Refill 05/12/2024 Encounter Details Date Type Department Care Team (Late st Contact Info) Description 05/12/2024 Telephone [facility] MEDICINE 230 [place], [place] [phone] Kasey Taylor ANP 230 [place], [place] [phone] Med Refill Social History Tobacco Use Types [...] the past 12 months, has t he [employer], gas, oil or water company threatened to [...] 10 MG tablet To be sent to: [facility] - [place], [place] - [id number] - [place], [place] - [address] documented in this encounter Plan of Treatment Upcoming Encounters Date Type Department Care Team ([facility] st Contact Info) Description 07/10/2025 3:00 PM EST Office Visit [facility] MEDICINE 230 [place] [address] Kasey Taylor ANP 230 [place] [address] 09/14/2025 10:30 AM EDT Clinical Support [facility] MED & PEDS 505 [place] [address] Shy Ordoñez, RN 505 [place] [address] documented as of this encounter Visit Diagnoses Not on filedocumented in this encounter Additional Health Concerns Assessment Noted Time PHQ-9 Depression Total Score: 3 11/27/19 24 2:18 PM EDT documented as of this encounter Care Teams Medical Tech Relationship Specialty Start Date End Date Kasey Taylor ANP 230 [place] [address] PCP - General Family Medicine 02/27/21 Ran Gallegos MD [address] [place] [address] Cardiology 06/17/24 documented as of this encounter
--- OUTSIDE RECORDS SUMMARY | 2025-06-23 06:38 | XMS_ITS | Encounter Summary ---
Author Organization [employer] Address [address] [place] [address] 7 [place] [address] Care Team Providers Care Honey Blender Name Role Phone Kasey Taylor Primary Care Provider [phone] Ran Gallegos MD Unavailable [phone] Reason for Visit * Reason Onset Date Comments Med Refill 09/28/2023 Encounter Details Date Type Department Care Team (Late st Contact Info) Description 09/28/2023 Telephone [facility] MEDICINE 230 [place], [place] [phone] Kasey Taylor ANP 230 [place], [place] [phone] Med Refill Social History Tobacco Use Types [...] 50 MG tablet To be sent to: [facility] - [place], [place] documented in this encounter Plan of Treatment Upcoming Encounters Date Type Department Care Team (Late st Contact Info) Description 07/10/2025 3:00 PM EST Office Visit [facility] MEDICINE [address] [place] [address] Kasey Taylor ANP 230 [place] [address] 09/14/2025 10:30 AM EDT Clinical Support [facility] MED [facility] PEDS 505 [place], [place] [phone] Shy Ordoñez, RN 505 [place] [address] documented as of this encounter Visit Diagnoses Not on filedocumented in this encounter Care Teams Honey Blender Relationship Specialty Start Date End Date Kasey Taylor ANP [address] [place] [address] PCP - General Family Medicine 02/27/21 [place] [id number] Cardiology 06/17/24 documented as of this encounter
--- OUTSIDE RECORDS SUMMARY | 2025-06-23 06:38 | XMS_ITS | Encounter Summary ---
Author Organization [employer] Address [address] [place] [address] 7t [place] [address] Care Team Providers Care Engine Lathe Set Up Operator Tool Name Role Phone Kasey Taylor Primary Care Provider [phone] Ran Gallegos MD Unavailable [phone] Reason for Visit * Reason Onset Date Comments Med Refill 05/23/2025 Encounter Details Date Type Department Care Team (Late st Contact Info) Description 05/23/2025 Telephone [facility] MEDICINE 230 [place], [place] [phone] Kasey Taylor ANP 230 [place], [place] [phone] Med Refill Social History Tobacco Use Types [...] MG tablet To be sent to: - [facility] - [place], [place] - [id number] - [place], [place] - [address] documented in this encounter Plan of Treatment Upcoming Encounters Date Type Department Care Team (Late st Contact Info) Description 07/10/2025 3:00 PM EST Office Visit [facility] MEDICINE 230 [place] [address] Kasey Taylor ANP 230 [place] [address] 09/14/2025 10:30 AM EDT Clinical Support [facility] MED & PEDS [address] [place] [address] Shy Ordoñez, BONNIE 505 [place] [address] documented as of this encounter Visit Diagnoses Not on filedocumented in this encounter Additional Health Concerns Assessment Noted Time PHQ-9 Depression Total Score: 3 11/27/19 24 2:18 PM EDT documented as of this encounter Care Teams Engine Lathe Set Up Operator Tool Relationship Specialty Start Date End Date Kasey Taylor ANP 230 [place] [address] PCP - General Family Medicine 02/27/21 Ran Gallegos MD 21 [facility] [place] [address] Cardiology 06/17/24 documented as of this encounter
--- OUTSIDE RECORDS SUMMARY | 2025-06-23 06:38 | XMS_ITS | Encounter Summary ---
Author Organization [employer] Address [address] [place] [address] 7t [place] [address] Care Team Providers Care Lamination Operator Name Role Phone Kasey Taylor Primary Care Provider [phone] Ran Gallegos MD Unavailable [phone] Encounter Details Date Type Department Care Team (Late st Contact Info) Description 06/06/2022 Orders Only [facility] MED & PEDS 505 [place] [address] Kasey Taylor ANP 230 [place] [address] Primary insomnia Social History Tobacco Use Types [...] Description 07/10/2025 3:00 PM EST Office Visit [facility] MEDICINE 230 [place] [address] Kasey Taylor ANP 230 [place] [address] 09/14/2025 10:30 AM EDT Clinical Support [facility] MED & PEDS 505 [place] [address] Shy Ordoñez, BONNIE 505 [place] [address] documented as of this encounter Visit Diagnoses Diagnosis Primary insomnia Persistent disorder of initiating or maintaining sleep documented in this encounter Care Teams Lamination Operator Relationship Specialty Start Date End Date Kasey Taylor ANP 230 [place] [address] PCP - General Family Medicine 02/27/21 Ran Gallegos MD 21 [place] [address] Cardiology 06/17/24 documented as of this encounter
--- OUTSIDE RECORDS SUMMARY | 2025-06-23 06:38 | XMS_ITS | Encounter Summary ---
Author Organization [employer] Address [address] [place] [address] 7t [place] [address] Care Team Providers Care Dining Service Worker Name Role Phone Kasey Taylor Primary Care Provider [phone] Ran Gallegos MD Unavailable [phone] Reason for Visit * Reason Onset Date Comments Appointment Request 09/23/2023 Encounter Details Date Type Department Care Team (Late st Contact Info) Description 09/23/2023 Telephone [facility] MEDICINE 230 [place], [place] [phone] Kasey Taylor ANP 230 [place], [place] [phone] Appointment Request Social History Tobacco Use Types [...] from pt requesting to r/s appt for BINGO WORKER on 09/22/23 documented in this encounter Plan of Treatment Upcoming Encounters Date Type Department Care Team (Late st Contact Info) Description 07/10/2025 3:00 PM EST Office Visit [facility] MEDICINE 230 [place] [address] Kasey Taylor ANP 230 [place], [place] 09/14/2025 10:30 AM EDT Clinical Support [facility] MED [facility] PEDS 505 [place], [place] [phone] Shy Ordoñez, BONNIE 505 [place] [address] documented as of this encounter Visit Diagnoses Not on filedocumented in this encounter Care Teams Dining Service Worker Relationship Specialty Start Date End Date Kasey Taylor ANP [address] [place] [address] PCP - General Family Medicine 02/27/21 [place] [address] Cardiology 06/17/24 documented as of this encounter
--- OUTSIDE RECORDS SUMMARY | 2025-06-23 06:38 | XMS_ITS | Encounter Summary ---
Author Organization [employer] Address [address] [place] [address] 7 [place] [address] Care Team Providers Care Personal Lines Insurance Agent Name Role Phone Kasey Taylor Primary Care Provider [phone] Ran Gallegos MD Unavailable [phone] Reason for Visit * Reason Comments Med Refill Encounter Details Date Type Department Care Team (Late st Contact Info) Description 09/10/2023 Refill [facility] MEDICINE [address] [place] [address] Kasey Taylor ANP [address] [place] [address] Social History Tobacco Use Types Packs/Day Years [...] Office Visit [facility] MEDICINE [address] [place] [address] [phone] Kasey Taylor ANP [address] [place] [address] [phone] 09/14/2025 10:30 AM EDT Clinical Support [facility] MED & PEDS [address] [place] [address] Shy Ordoñez, RN [address] [place] [address] documented as of this encounter Visit Diagnoses Not on filedocumented in this encounter Care Teams Personal Lines Insurance Agent Relationship Specialty Start Date End Date Kasey Taylor ANP 230 [place] [address] PCP - General Family Medicine 02/27/21 Ran Gallegos MD [address] [place] [address] Cardiology 06/17/24 documented as of this encounter
--- OUTSIDE RECORDS SUMMARY | 2025-06-23 06:38 | XMS_ITS | Encounter Summary ---
Author Organization [employer] Address [address] [place] [address] 7t [place] [address] Care Team Providers Care Assistant Sales Manager Name Role Phone Kasey Taylor Primary Care Provider [phone] Ran Gallegos MD Unavailable [phone] Reason for Visit * Reason Onset Date Comments Med Refill 06/05/2025 Encounter Details Date Type Department Care Team (Late st Contact Info) Description 06/05/2025 Telephone [facility] MEDICINE 230 [place], [place] [phone] Kasey Talyor ANP 230 [place], [place] [phone] Med Refill Social History Tobacco Use Types [...] 50 MG tablet To be sent to: [facility] - [place], [place] - [id number] - [place], [place] - [address] documented in this encounter Plan of Treatment Upcoming Encounters Date Type Department Care Team (Late st Contact Info) Description 07/10/2025 3:00 PM EST Office Visit [facility] MEDICINE 230 [place] [address] Kasey Taylor ANP 230 [place] [address] 09/14/2025 10:30 AM EDT Clinical Support [facility] MED & PEDS [address] [place] [address] Shy Ordoñez, BONNIE 505 [place] [address] documented as of this encounter Visit Diagnoses Not on filedocumented in this encounter Additional Health Concerns Assessment Noted Time PHQ-9 Depression Total Score: 3 11/27/19 24 2:18 PM EDT documented as of this encounter Care Teams Assistant Sales Manager Relationship Specialty Start Date End Date Kasey Taylor ANP 230 [place] [address] PCP - General Family Medicine 02/27/21 Ran Gallegos MD [address] [place] [address] Cardiology 06/17/24 documented as of this encounter
--- OUTSIDE RECORDS SUMMARY | 2025-06-23 06:38 | XMS_ITS | Encounter Summary ---
Author Organization [employer] Address [address] [place] [address] 7t [place] [address] Care Team Providers Care Radiation Officer Name Role Phone Kasey Taylor Primary Care Provider [phone] Ran Gallegos MD Unavailable [phone] Reason for Visit * Reason Onset Date Comments Med Refill 02/14/2025 Encounter Details Date Type Department Care Team (Late st Contact Info) Description 02/14/2025 Telephone [facility] MEDICINE 230 [place], [place] [phone] Kasey Taylor ANP 230 [place], [place] [phone] Med Refill Social History Tobacco Use Types [...] Scott LPN - 02/14/2025 10:55 AM EDT MANAGER OF CASE checked on 02/14/25 Ambien last filled on 01/12/25 and has 1 refill left. Please advise patient to call the pharmacy. * Telephone Encounter - Mattiheu Kelley - 02/14/2025 10:44 AM EDT TC from pt requesting medication refill. Medications needing refill: zolpidem (Ambien) 10 MG tablet To be sent to: [facility] - [place] - [id number] - [place] - [address] documented in this encounter Plan of Treatment Upcoming Encounters Date Type Department Care Team (Late st Contact Info) Description 07/10/2025 3:00 PM EST Office Visit [facility] MEDICINE 230 [place] [address] Kasey Taylor ANP 230 [place] [address] 09/14/2025 10:30 AM EDT Clinical Support [facility] CHC MED & PEDS 505 [place] [address] Shy rOdoñez, RN 505 [place] [address] documented as of this encounter Visit Diagnoses Not on filedocumented in this encounter Additional Health Concerns Assessment Noted Time PHQ-9 Depression Total Score: 3 11/27/19 24 2:18 PM EDT documented as of this encounter Care Teams Radiation Officer Relationship Specialty Start Date End Date Kasey Taylor ANP 230 [place] [address] PCP - General Family Medicine 02/27/21 [place] [address] Cardiology 06/17/24 documented as of this encounter
--- OUTSIDE RECORDS SUMMARY | 2025-06-23 06:38 | XMS_ITS | Encounter Summary ---
Author Organization [employer] Address [address] [facility] 7t [place] [address] Care Team Providers Care Public Service Officer Name Role Phone Kasey Taylor Primary Care Provider [phone] Ran Gallegos MD Unavailable [phone] Reason for Visit * Reason Comments Med Refill Encounter Details Date Type Department Care Team ([facility] st Contact Info) Description 06/03/2025 Refill [facility] MEDICINE 230 [place], [place] [phone] Kasey Taylor ANP 230 [place], [place] [phone] Mild asthma without complication, unspecified whether persistent [...] Description 07/10/2025 3:00 PM EST Office Visit [facility] MEDICINE 230 [place] [address] Kasey Taylor ANP 230 [place] [address] 09/14/2025 10:30 AM EDT Clinical Support [facility] CHC MED & PEDS 505 [place] [address] Shy Ordoñez, BONNIE 505 [place] [address] documented as of this encounter Visit Diagnoses Diagnosis Mild asthma without complication, unspecified whether persistent documented in this encounter Additional Health Concerns Assessment Noted Time PHQ-9 Depression Total Score: 3 11/27/19 24 2:18 PM EDT documented as of this encounter Care Teams Public Service Officer Relationship Specialty Start Date End Date Kasey Taylor ANP [address] [place] [address] PCP - General Family Medicine 02/27/21 Ran Gallegos MD [address] [place] [address] Cardiology 06/17/24 documented as of this encounter
--- OUTSIDE RECORDS SUMMARY | 2025-06-23 06:38 | XMS_ITS | Encounter Summary ---
Author Organization [employer] Address [address] [place] [address] 7 [place] [address] Care Team Providers Care Roustabout Crew Leader Name Role Phone Kasey Taylor Primary Care Provider [phone] Ran Gallegos MD Unavailable [phone] Reason for Visit * Reason Comments Med Refill Encounter Details Date Type Department Care Team (Late Contact Info) Description 12/11/2022 Refill [facility] CHC MED & PEDS 505 [place], [place] [phone] Kasey Taylor ANP [address] [place] [address] [phone] Mild asthma without complication, unspecified whether persistent [...] Office Visit [facility] MEDICINE [address] [place] [address] [phone] Kasey Taylor ANP 230 [place], [place] [phone] 09/14/2025 10:30 AM EDT Clinical Support [facility] CHC MED & PEDS 505 [place] [address] Shy Ordoñez, BONNIE 505 [place] [address] documented as of this encounter Visit Diagnoses Diagnosis Mild asthma without complication, unspecified whether persistent documented in this encounter Care Teams Roustabout Crew Leader Relationship Specialty Start Date End Date Kasey Taylor ANP [address] [place] [address] PCP - General Family Medicine 02/27/21 Ran Gallegos MD 21 [facility] [place] [address] Cardiology 06/17/24 documented as of this encounter
--- OUTSIDE RECORDS SUMMARY | 2025-06-23 06:38 | XMS_ITS | Encounter Summary ---
Author Organization [employer] Address [address] [place] [address] 7t [place] [address] Care Team Providers Care Mining Engineering Technologist Name Role Phone Kasey Taylor Primary Care Provider [phone] Ran Gallegos MD Unavailable [phone] Encounter Details Date Type Department Care Team (Late st Contact Info) Description 04/03/2023 Abstract [facility] MEDICINE [address] [place] [address] Kasey Taylor ANP [address] [place] [address] Social History Tobacco Use Types Packs/Day Years [...] Description 07/10/2025 3:00 PM EST Office Visit [facility] MEDICINE [address] [place] [address] [phone] Kasey Taylor ANP [address] [place] [address] [phone] 09/14/2025 10:30 AM EDT Clinical Support [facility] CHC MED & PEDS [address] [facility] [place] [address] Shy Ordoñez, RN 505 [place] [address] documented as of this encounter Procedures Procedure Name Priority Date/Time Associated Diagnosis Comments PAP/HPV Routine 04/15/2022 documented in this encounter Results * Pap Smear (04/15/2022) Pap Negative for intraephithelial lesion or malignancy Negative for intraephithelial lesion or malignancy, Other HPV Undetected us Historical Provider HEALTH MAINTENANCE Final Result documented in this encounter Visit Diagnoses Not on filedocumented in this encounter Care Teams Mining Engineering Technologist Relationship Specialty Start Date End Date Kasey Taylor ANP [address] [place] [address] PCP - General Family Medicine 02/27/21 Ran Gallegos MD [address] [place] [address] Cardiology 06/17/24 documented as of this encounter
--- OUTSIDE RECORDS SUMMARY | 2025-06-23 06:38 | XMS_ITS | Encounter Summary ---
Author Organization [employer] Address [address] [place] [address] 7 [place] [address] Care Team Providers Care Client Resource Specialist Name Role Phone Kasey Taylor Primary Care Provider [phone] Ran Gallegos MD Unavailable [phone] Reason for Visit * Reason Comments Med Refill Encounter Details Date Type Department Care Team (Late Contact Info) Description 03/24/2023 Refill [facility] CHC MED & PEDS 505 [place], [place] [phone] Kasey Taylor ANP [address] [place] [address] [phone] Mild asthma without complication, unspecified whether persistent [...] Description 07/10/2025 3:00 PM EST Office Visit [facility] MEDICINE [address] [place] [address] [phone] Kasey Taylor ANP 230 [place], [place] [phone] 09/14/2025 10:30 AM EDT Clinical Support [facility] CHC MED & PEDS 505 [place] [address] Shy Ordoñez, BONNIE 505 [place] [address] documented as of this encounter Visit Diagnoses Diagnosis Mild asthma without complication, unspecified whether persistent documented in this encounter Care Teams Client Resource Specialist Relationship Specialty Start Date End Date Kasey Taylor ANP [address] [place] [address] PCP - General Family Medicine 02/27/21 Ran Gallegos MD 21 [facility] [place] [address] Cardiology 06/17/24 documented as of this encounter
--- OUTSIDE RECORDS SUMMARY | 2025-06-23 06:38 | XMS_ITS | Encounter Summary ---
Author Organization [employer] Address [address] [facility] 7t [place] [address] Care Team Providers Care Promotional Advertising Assistant Name Role Phone Kasey Taylor Primary Care Provider [phone] Ran Gallegos MD Unavailable [phone] Reason for Visit * Reason Comments Med Refill Encounter Details Date Type Department Care Team ([facility] st Contact Info) Description 02/14/2025 Refill [facility] CHC MED & PEDS [address] [place], [place] [phone] Kasey Taylor ANP 230 [place] [address] Chronic pain syndrome Social History Tobacco Use [...] the past 12 months, has t he [employer] gas, oil or water company threatened to [...] EST Office Visit [facility] MEDICINE 230 [place] [address] Kasey Taylor ANP 230 [place] [address] 09/14/2025 10:30 AM EDT Clinical Support [facility] CHC MED & PEDS 505 [place] [address] Shy Ordoñez, BONNIE 505 [place] [address] documented as of this encounter Visit Diagnoses Diagnosis Chronic pain syndrome documented in this encounter Additional Health Concerns Assessment Noted Time PHQ-9 Depression Total Score: 3 11/27/19 24 2:18 PM EDT documented as of this encounter Care Teams Promotional Advertising Assistant Relationship Specialty Start Date End Date Kasey Taylor ANP [address] [place] [address] PCP - General Family Medicine 02/27/21 Ran Gallegos MD 21 [facility] [place] [address] Cardiology 06/17/24 documented as of this encounter
--- OUTSIDE RECORDS SUMMARY | 2025-06-23 06:38 | XMS_ITS | Encounter Summary ---
Author Organization [employer] Address [address] [place] [address] 7t [place] [address] Care Team Providers Care Mechanotherapist Name Role Phone Kasey Taylor Primary Care Provider [phone] Ran Gallegos MD Unavailable [phone] Reason for Visit * Reason Onset Date Comments Med Refill 09/10/2022 Encounter Details Date Type Department Care Team (Late st Contact Info) Description 09/10/2022 Telephone [facility] MEDICINE 230 [place], [place] [phone] Kasey Taylor ANP 230 [place], [place] [phone] Med Refill Social History Tobacco Use Types [...] Visit [facility] MEDICINE 230 [place] [address] Kasey Taylor ANP 230 [place] [address] 09/14/2025 10:30 AM EDT Clinical Support [facility] CHC MED & PEDS 505 [place], [place] [phone] Shy Ordoñez, BONNIE 505 [place], [place] [phone] documented as of this encounter Visit Diagnoses Not on filedocumented in this encounter Care Teams Mechanotherapist Relationship Specialty Start Date End Date Kasey Taylor ANP [address] [place] [address] PCP - General Family Medicine 02/27/21 [place] [address] Cardiology 06/17/24 documented as of this encounter
--- OUTSIDE RECORDS SUMMARY | 2025-06-23 06:38 | XMS_ITS | Encounter Summary ---
Author Organization [employer] Address [address] [place] [address] 7t h Floor [address] Care Team Providers Care Rehabilitation Program Manager Name Role Phone Kasey Taylor Primary Care Provider [phone] Ran Gallegos MD Unavailable [phone] Reason for Visit * Reason Onset Date Comments Med Refill 02/14/2025 Encounter Details Date Type Department Care Team (Late st Contact Info) Description 02/14/2025 Telephone [facility] MEDICINE 230 [place], [place] [phone] Kasey Taylor ANP 230 [place], [place] [phone] Med Refill Social History Tobacco Use Types [...] 50 MG tablet To be sent to: [facility] - [place], [place] - [id number] - [place], [place] - [address] documented in this encounter Plan of Treatment Upcoming Encounters Date Type Department Care Team (Late st Contact Info) Description 07/10/2025 3:00 PM EST Office Visit [facility] MEDICINE 230 [place] [address] Kasey Taylor ANP 230 [place] [address] 09/14/2025 10:30 AM EDT Clinical Support [facility] CHC MED & PEDS [address] [place] [address] Shy Ordoñez RN 505 [place] [address] documented as of this encounter Visit Diagnoses Not on filedocumented in this encounter Additional Health Concerns Assessment Noted Time PHQ-9 Depression Total Score: 3 11/27/19 24 2:18 PM EDT documented as of this encounter Care Teams Rehabilitation Program Manager Relationship Specialty Start Date End Date Kasey Taylor ANP 230 [place] [address] PCP - General Family Medicine 02/27/21 Ran Gallegos MD [address] [place] [address] Cardiology 06/17/24 documented as of this encounter
--- OUTSIDE RECORDS SUMMARY | 2025-06-23 06:38 | XMS_ITS | Encounter Summary ---
Author Organization [employer] Address [address] [facility] 7t [place] [address] Care Team Providers Care Medical Data Entry Clerk Name Role Phone Kasey Taylor Primary Care Provider [phone] Ran Gallegos MD Unavailable [phone] Reason for Visit * Reason Onset Date Comments Med Refill 04/04/2025 Encounter Details Date Type Department Care Team (Late st Contact Info) Description 04/04/2025 Telephone [facility] MEDICINE 230 [place], [place] [phone] Kasey Taylor ANP 230 [place], [place] [phone] Med Refill Social History Tobacco Use Types [...] 50 MG tablet To be sent to: [facility] - [place], [place] - [id number] - [place], [place] - [address] documented in this encounter Plan of Treatment Upcoming Encounters Date Type Department Care Team (Late st Contact Info) Description 07/10/2025 3:00 PM EST Office Visit [facility] MEDICINE 230 [place] [address] Kasey Taylor ANP 230 [place] [address] 09/14/2025 10:30 AM EDT Clinical Support [facility] CHC MED & PEDS [address] [place] [address] Shy Ordoñez, BONNIE 505 [place] [address] documented as of this encounter Visit Diagnoses Not on filedocumented in this encounter Additional Health Concerns Assessment Noted Time PHQ-9 Depression Total Score: 3 11/27/19 24 2:18 PM EDT documented as of this encounter Care Teams Medical Data Entry Clerk Relationship Specialty Start Date End Date Kasey Taylor ANP 230 [place] [address] PCP - General Family Medicine 02/27/21 Ran Gallegos MD [address] [place] [address] Cardiology 06/17/24 documented as of this encounter
--- OUTSIDE RECORDS SUMMARY | 2025-06-23 06:38 | XMS_ITS | Encounter Summary ---
Author Organization [employer] Address [address] [place] [address] 7t [place] [address] Care Team Providers Care Oven Heater Helper Name Role Phone Kasey Taylor Primary Care Provider [phone] Ran Gallegos MD Unavailable [phone] Reason for Visit * Reason Onset Date Comments Med Refill 10/13/2022 Encounter Details Date Type Department Care Team (Late st Contact Info) Description 10/13/2022 Telephone [facility] MEDICINE 230 [place], [place] [phone] Kasey Taylor ANP 230 [place], [place] [phone] Med Refill Social History Tobacco Use Types [...] (Ultram) 50 MG tablet Please sent to [facility] [place] - [id number] - [place] - [address] documented in this encounter Plan of Treatment Upcoming Encounters Date Type Department Care Team (Late st Contact Info) Description 07/10/2025 3:00 PM EST Office Visit [facility] MEDICINE 230 [place] [address] Kasey Taylor ANP 230 [place] [address] 09/14/2025 10:30 AM EDT Clinical Support [facility] CHC MED & PEDS 505 [place] [address] Shy Ordoñez, BONNIE 505 [place] [address] documented as of this encounter Visit Diagnoses Not on filedocumented in this encounter Care Teams Oven Heater Helper Relationship Specialty Start Date End Date Kasey Taylor ANP [address] [place] [address] PCP - General Family Medicine 02/27/21 Ran [place] [address] Cardiology 06/17/24 documented as of this encounter
--- OUTSIDE RECORDS SUMMARY | 2025-06-23 06:38 | XMS_ITS | Clinical Summary ---
Author Organization [facility] Address [address] [facility] [address] [place] [phone] Phone Care Team Providers Care Corner Trimmer Operator Name Role Phone Mayur Mendez NETWORK CONTROL OPERATORS SUPERVISOR Primary Care Provider [phone] Allergies No known active allergies Active Problems [...] file Medical Devices Not on file Insurance [facility] [address] [place] [place] [address] [facility] [place] [address] [place] [address] [place] [address] [place] [address] [facility] PCC Care Teams Corner Trimmer Operator Relationship Specialty Start Date End Date Mayur Mendez NP [address] [place] [address] PCP - General Family Medicine 05/24/14 Additional Source Comments The information contained in this document represents components of the legal health record. It is not the complete legal health record.[facility]
--- OUTSIDE RECORDS SUMMARY | 2025-06-23 06:38 | XMS_ITS | Encounter Summary ---
Author Organization [employer] Address [address] [place] [address] 7t [place] [address] Care Team Providers Care Pediatric Neuropsychologist Name Role Phone Kasey Taylor Primary Care Provider [phone] Ran Gallegos MD Unavailable [phone] Encounter Details Date Type Department Care Team (Late st Contact Info) Description 08/11/2022 Orders Only [facility] CHC MED & PEDS 505 [place] [address] Beverley Scott LPN Social History Tobacco Use [...] Description 07/10/2025 3:00 PM EST Office Visit [facility] MEDICINE 230 [place] [address] Kasey Taylor ANP 230 [place] [address] 09/14/2025 10:30 AM EDT Clinical Support [facility] MED & PEDS 505 [place] [address] Shy Ordoñez, RN 505 [place] [address] documented as of this encounter Visit Diagnoses Not on filedocumented in this encounter Care Teams Pediatric Neuropsychologist Relationship Specialty Start Date End Date Kasey Taylor ANP 230 [place] [address] PCP - General Family Medicine 02/27/21 Ran [place] [address] Cardiology 06/17/24 documented as of this encounter
--- OUTSIDE RECORDS SUMMARY | 2025-06-23 06:38 | XMS_ITS | Encounter Summary ---
Author Organization [employer] Address [address] [place] [address] 7 [place] [address] Care Team Providers Care Woodworking Machinist Name Role Phone Kasey Taylor Primary Care Provider [phone] Ran Gallegos MD Unavailable [phone] Reason for Visit * Reason Onset Date Comments Medication Question 09/11/2023 Encounter Details Date Type Department Care Team (Late st Contact Info) Description 09/11/2023 Telephone [facility] MEDICINE 230 [place], [place] [phone] Kasey Taylor ANP 230 [place], [place] [phone] Medication Question Social History Tobacco Use Types [...] - 09/11/2023 4:24 PM EST Tc from [facility] stating that medication FaBB 2.2-25-1 MG tablet is not available that it may be discontinued but is requesting if it can be substituted for Folbee or Foltex 2.2 mg Please contact pharmacy @ [phone] documented in this encounter Plan of Treatment Upcoming Encounters Date Type Department Care Team (Late st Contact Info) Description 07/10/2025 3:00 PM EST Office Visit [facility] MEDICINE 230 [place] [address] Kasey Taylor ANP 230 [place] [address] 09/14/2025 10:30 AM EDT Clinical Support [facility] CHC MED & PEDS 505 [place] [address] Shy Ordoñez, BONNIE 505 [place], [place] documented as of this encounter Visit Diagnoses Not on filedocumented in this encounter Care Teams Woodworking Machinist Relationship Specialty Start Date End Date Kasey Taylor ANP [address] [place] [address] PCP - General Family Medicine 02/27/21 [place] [address] Cardiology 06/17/24 documented as of this encounter
--- OUTSIDE RECORDS SUMMARY | 2025-06-23 06:38 | XMS_ITS | Clinical Summary ---
Author Organization [employer] Address [address] [place] [address] [address] [place] [address] Care Team Providers Care Soft Mud Molder Name Role Phone Kasey Taylor Primary Care Provider [phone] Ran Gallegos MD Unavailable [phone] Allergies Active Allergy Reactions Criticality Noted [...] AT BEDTIME NEEDED 30 tablet 1 5 4:38 PM EST 05/19/20 25 Active halobetasol (UltraVATE) 0.05 % ointmentIndicat ions:Hand eczema,Nummular dermatitis Apply topically 2 times daily. Up to 4 weeks 50 g 1 5 5:13 PM EST 05/19/20 25 Active hydrocortisone 1 % creamIndication s:Contact dermatitis, unspecified contact dermatitis type, unspecified trigger Apply topically if needed in the morning and at bedtime for rash or irritation for up to 14 days. 30 g 1 5 9:34 AM EST 06/09/20 25 2024 Active cholecalciferol (Vitamin D-3) 50 MCG (1999 UT) tabletIndicatio ns:Vitamin D deficiency Take 1 tab once daily 90 tablet 1 06/12/20 25 Active traMADol (Ultram) 50 MG tabletIndicatio ns:Chronic pain syndrome Take 1 tablet (50 mg) by mouth every 8 (eight) hours if needed for severe pain for up to 14 days. Do not start before June 14, 2025. 42 tablet 06/14/20 25 2024 Active traMADol (Ultram) 50 MG tabletIndicatio ns:Chronic [...] up to 7 days. 21 tablet 5 4:42 PM EST 06/05/20 25 2024 Discontinued(R eorder (will not trigger [...] x-rays patient will be contacted with results [facility] (current) use of opiate analgesic 01/2024 Cigarette nicotine dependence without complicati on 04/14/2024 Overview (04/14/2024): Smoking 3 cigs/d. Declines NRT. Aortic valve replaced 10/06/2022 Chronic pain syndrome 08/13/2022 Eczema 08/13/2022 Spinal stenosis of lumbar region 08/13/2022 Ingrowing toenail 08/13/2022 Aortic valve stenosis 07/19/2014 Overview (08/13/2022): Aortic valve stenosis Aortic valve disorder 05/23/2014 Asthma 06/18/2012 Insomnia 01/06/2012 Encounters Date Type Department Care Team Description 06/12/2025 Refill [facility] PEDS [address] [place] [address] Shy Ordoñez RN Chronic pain syndrome 06/12/2025 Telephone [facility] MEDICINE [address] [place] [address] Kasey Taylor ANP Med Refill 06/12/2025 Results Follow-Up [facility] [address] [place] [address] Kasey Taylor ANP POCT INR, TSH W/Reflex to FT4, Vitamin B12, Additional followed-up results: 6 06/09/2025 8:40 AM EST Office Visit [facility] WALK-IN [address] [address] Sami Sepulveda MD Contact dermatitis, unspecified contact dermatitis type, unspecified trigger (Primary Dx) 06/09/2025 Travel 06/07/2025 10:30 AM EST Clinical Support [facility] [address] [place] [address] Shy Ordoñez RN Chronic pain syndrome (Primary Dx) 06/07/2025 Travel 06/05/2025 Refill [facility] [address] [place] [address] Syh Ordoñez RN Chronic pain syndrome 06/05/[address] [address] Kasey Taylor ANP Med Refill 06/03/[address] [address] Kasey Taylor ANP Mild asthma without complication, unspecified whether persistent 05/23/2025 Refill [facility] [address] [place] [address] Shy Orodñez RN Chronic pain syndrome 05/23/[address] [address] Kasey Taylor ANP Med Refill 05/19/2025 1:00 PM EST Office Visit [address] [address] Nandini Laurent MD Hand eczema (Primary Dx); Nummular dermatitis; Hyperpigmentation 05/19/2025 Travel 05/18/2025 Refill [facility] [address] [place] [phone] Kasey Taylor ANP Primary insomnia 05/16/2025 Refill [facility] [address] [place] [address] Shy Ordoñez RN 05/15/2025 Telephone [address] [place] [address] Kasey Taylor ANP Med Refill 05/13/2025 Refill [facility] [address] [place] [address] Kasey Taylor ANP Chronic pain syndrome 04/28/[address] [address] Kasey Taylor ANP Bianca recall 04/25/2025 Telephone [facility] [address] [place] [address] Shy Ordoñez RN 04/19/2025 Refill [facility] [address] [place] [address] Kasey Taylor ANP Chronic pain syndrome 04/16/[address] [address] Kasey Taylor ANP Mild asthma without complication, unspecified whether persistent 04/11/[address] [address] Kasey Taylor ANP Durable Medical Equipment 04/10/2025 2:00 PM EDT Office Visit [address] [address] Kasey Taylor ANP Chronic pain syndrome (Primary Dx); Spinal stenosis of lumbar region with neurogenic claudication; Cigarette nicotine dependence without complication; Aortic valve stenosis, etiology of cardiac valve disease unspecified; 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; Anticoagulated on Coumadin; Bilateral hip pain; Epigastric pain; Left ear pain; Need for hepatitis B screening test 04/07/[address] [address] Kasey Taylor ANP chartprep 04/04/2025 Refill [facility] [address] [place] [address] 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, 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 04/04/[address] [address] Kasey Taylor ANP Med Refill 04/03/2025 Patient Outreach [facility] [address] [place] [address] Kasey Taylor ANP Pre-visit Planning (SDOH was already completed ) from Last 3 Months Immunizations Immunization Administration [...] Sign Reading Time Taken Comments Blood Pressure 132/70 06/09/2025 9:20 AM EST Pulse 74 06/09/2025 8:53 AM EST Temperature 36.7 C (98.1 F) 06/09/2025 8:53 AM EST Respiratory Rate 18 06/09/2025 8:53 AM EST Oxygen Saturation 99% 06/09/2025 8:53 AM EST Inhaled Oxygen Concentration - - Weight 89.4 kg (197 lb) 06/09/2025 8:53 AM EST Height 160 cm (5' 3 ) 05/19/2025 1:03 PM EST Body Mass Index 34.9 05/19/2025 1:03 PM EST Plan of Treatment Upcoming Encounters Date Type Department Care Team (Late st Contact Info) Description 07/10/2025 3:00 PM EST Office Visit [facility] MED[facility]INE [address] [place] [address] Kasey Taylor ANP [address] [place] [address] 09/14/2025 10:30 AM EDT Clinical Support [facility] [address] [place] [address] Shy Ordoñez, RN [address] [place] [address] Health Maintenance Due Date Last Done Comments CT Colonography 1978 Colonoscopy 1978 Colorectal Cancer Screening 1978 FIT DNA/Cologuard 1978 FIT 1978 FOBT 1978 Sigmoidoscopy 1978 Family Planning (PISQ) 1993 Hepatitis B Vaccines (3 of 3 - 19+ 3-dose series) 03/04/2016 01/08/2016, 08/05/2007 Mammogram 10/03/2022 10/03/2020 Depression Screening 11/26/2024 11/27/2023, 11/27/19 24 COVID-19 Vaccine ( season) 2025 Pap Smear 04/15/2025 04/15/2022, 01/27/2022 SDOH Screening 10/04/2025 10/04/2024 Disability Screening 10/17/2025 10/17/2024 Influenza Vaccine (#1) 2026 , 06/23/2019, 07/01/2018, Additional history exists Postponed from 03/06/2025 (Patient Refused) Alcohol/Substance Use Screening 04/10/2026 04/10/2025 Tobacco Screening 06/09/2026 06/09/2025 Lipid Panel 06/14/2026 06/14/2021, 04/03/2020 Cervical Cancer [...] Procedure Name Priority Date/Time Associated Diagnosis Comments HEPATITIS B SURFACE ANTIBODY, QUALITATIVE Routine 06/09/2025 9:04 AM EST Need for hepatitis B screening test HEPATITIS B SURFACE ANTIGEN, EIA Routine 06/09/2025 9:04 AM EST Need for hepatitis B screening test HEPATITIS B CORE AB TOTAL Routine 06/09/2025 9:04 AM EST Need for hepatitis B screening test BASIC METABOLIC PANEL Routine 06/09/2025 9:04 AM EST Chronic pain syndrome VITAMIN D,25-OH,TOTAL,IA Routine 06/09/2025 9:04 AM EST Chronic pain syndrome CBC WITH AUTO DIFFERENTIAL Routine 06/09/2025 9:04 AM EST Chronic pain syndrome VITAMIN B12 Routine 06/09/2025 9:04 AM EST Chronic pain syndrome TSH W/REFLEX TO FT4 Routine 06/09/2025 9 :04 AM EST Chronic pain syndrome POCT JOHN-14 URINE DRUG SCREEN Routine 06/07/2025 10:29 AM EST Chronic pain syndrome HEMOGLOBIN A1C Routine 06/07/2025 9:57 AM EST Hyperpigmentation INSULIN Routine 06/07/2025 9:57 AM EST Hyperpigmentation POCT INR Routine 04/10/2025 2:35 PM EDT [...] Recently Relevant to Health Maintenance Results * (ABNORMAL) Vitamin D, 25-Hydroxy, Total, Immunoassay (06/09/2025 9:04 AM EST) Pathologist [facility] Vitamin D 25-OH Total 17.5(L) >30 ng/mL [facility] Comment: Health Based Reference Values*< 20 ng/mL [id number] ng/mL Insufficient> 30 ng/mL Sufficient*Dave TUTTLE. N Engl J Med. 2007;357:266-280There is no well-established upper level of normal vitamin Dlevels. Some laboratories use 50 ng/mL as an upper limit ofnormal. However, toxicity is patient-dependent and may occurat any level. Careful correlation with the patient'spresentation is necessary and, if there is concern forvitamin D toxicity, treatment should be consideredirrespective of the serum level.Care must be taken in interpreting Vitamin D results fromdifferent laboratories and methodologies. Published datademonstrated that results from patients undergoinghemodialysis may show a negative bias when tested withvarious automated 25-OH vitamin D assays when compared toLC-MS/MS.When testing samples from patients whose predominant form ofVitamin D is Vitamin D2, such as patients receiving VitaminD2 supplementation, results that are subtherapeutic shouldbe confirmed with another method such as LC-MS/MS. Blood Venous blood specimen / Unknown 06/09/2025 9:04 AM EST 06/09/2025 11:12 AM EST Kasey Taylor ANP LAB BLOOD ORDERABLES Final Resul t Performing Organization Address City/[facility] Co de Phone Number [facility] [address] [place] [phone] * TSH W/Reflex to FT4 (06/09/2025 9:04 AM EST) TSH reflex Free T4 2.15 0.32 - 4.0 uIU/mL [facility] Blood Venous blood specimen / Unknown 06/09/2025 9:04 AM EST 06/09/2025 11:12 AM EST Kasey Taylor [facility] LAB BLOOD ORDERABLES Final Resul t Performing Organization Address [facility] Co de Phone Number [facility] [address] [place] [phone] * (ABNORMAL) CBC auto differential (06/09/2025 9:04 AM EST) White Blood Count 9.9 4.8 - 10.8 X10*3/uL [facility] Red Blood Count 4.37 4.20 - 5.50 X10*6/uL [facility] Hemoglobin 12.7 12.0 - 16.0 g/dl [facility] Hematocrit 39.7 37.0 - 47.0 % [facility] Mean Corpuscular Volume 90.8 80.0 - 98.0 fL [facility] Mean Corpuscular Hemoglobin 29.1 27.0 - 33.0 pg [facility] Mean Corpuscular HGB Conc 32.0 31.0 - 35.0 g/dl [facility] Red Cell Distribution Width 13.8 11.0 - 16.0 % [facility] Platelet Count 166 160 - 400 X10*3/uL [facility] Mean Platelet Volume 12.5(H) 9.4 - 12.3 fL [facility] Neutrophils Percent Auto 62.7 45 - 73 % [facility] Imm Gran Pct Auto 0.2 0.0 - 0.4 % [facility] Lymphocytes Percent Auto 27.4 20 - 40 % [facility] Monocytes Percent Auto 6.8 2 - 11 % [facility] Eosinophils Percent Auto 1.8 0 - 4 % [facility] Basophils Percent Auto 1.1 0 - 2 % [facility] NRBC Pct Auto 0.0 0.0 - 0.2 /100WBC [facility] Neutrophils Absolute Auto 6.2 2.0 - 8.3 x10*3/uL [facility] Imm Gran Abs Auto 0.02 0.00 - 0.03 X10*3/uL [facility] Lymphocytes Absolute Auto 2.7 1.2 - 4.9 X10*3/uL [facility] Monocytes Absolute Auto 0.7 0.1 - 1.2 X10*3/uL [facility] Eosinophils Absolute Auto 0.2 0.0 - 0.4 X10*3/uL [facility] Basophils Absolute Auto 0.1 0.0 - 0.2 X10*3/uL [facility] NRBC Abs Auto 0.000 0.0 - 0.012 X10*3/uL [facility] Blood Venous blood specimen / Unknown 06/09/2025 9:04 AM EST 06/09/2025 11:12 AM EST Kasey [facility] LAB BLOOD ORDERABLES Final Resul t [facility] [address] [place] [phone] * Hepatitis B surface antigen, EIA (06/09/2025 9:04 AM EST) Hepatitis B Surface Ag Negative Negative [facility] Blood Venous blood specimen / Unknown 06/09/2025 9:04 AM EST 06/09/2025 11:21 AM EST Kasey Taylor ANP LAB BLOOD ORDERABLES Final Resul t Performing Organization Address [facility]/ZIP Co de Phone Number [facility] [address] [place] [phone] * Hepatitis B Core Antibody, Total (06/09/2025 9:04 AM EST) Hepatitis B Core Antibody Nonreactive Nonreactive [facility] Blood Venous blood specimen / Unknown 06/09/2025 9:04 AM EST 06/09/2025 11:21 AM EST Kasey Taylor ANP LAB BLOOD ORDERABLES Final Resul t Performing Organization Address [facility] Co de Phone Number [facility] [address] [place] [phone] * Hepatitis B Surface Antibody, Qualitative (06/09/2025 9:04 AM EST) ~Hepatitis B Surface Antibody NONREACTIVE Nonreactive [facility] Comment:Nonreactive: < 8.00 mIU/mL Blood Venous blood specimen / Unknown 06/09/2025 9:04 AM EST 06/09/2025 11:21 AM EST Kasey Taylor ANP LAB BLOOD ORDERABLES Final Resul t Performing Organization Address [facility] Co de Phone Number [facility] [address] [place] [phone] * Vitamin B12 (06/09/2025 9:04 AM EST) Vitamin B12 411 200 - 900 pg/mL [facility] Comment:NORMAL 200-900 PG/ML INDETERMINATE 160-199 PG/ML DEFICIENT < 160 PG/ML Blood Venous blood specimen / Unknown 06/09/2025 9:04 AM EST 06/09/2025 11:12 AM EST Kasey Taylor ANP LAB BLOOD ORDERABLES Final Resul t Performing Organization Address City/[facility]/ZIP Co de Phone Number [facility] [address] [place] [phone] [phone] * (ABNORMAL) Basic Metabolic Panel (06/09/2025 9:04 AM EST) Sodium 138 135 - 145 mmol/L [facility] Potassium 3.9 3.3 - 5.1 mmol/L [facility] Chloride 110(H) 96 - 108 mmol/L [facility] Carbon Dioxide 24 22 - 29 mmol/L [facility] Anion Gap 8(L) 12 - 20 [facility] Urea Nitrogen (BUN) 11 9 - 16 mg/dL [facility] Creatinine, Serum 0.66 0.5 - 1.4 mg/dL [facility] Estimated Glomerular Filt Rate >60 [facility] Comment:Chronic Kidney Disea se: Estimated GFR < 60 mL/min/[id number] Kidney Disease: Estimated GFR < 15 mL/min/1.73m2 Glucose 95 60 - 115 mg/dL [facility] Calcium 8.7 8.4 - 10.2 mg/dL [facility] Blood Venous blood specimen / Unknown 06/09/2025 9:04 AM EST 06/09/2025 11:12 AM EST Kasey Taylor [facility] LAB BLOOD ORDERABLES Final Resul t Performing Organization Address [facility] Co de Phone Number [facility] [address] [place] [address] [phone] * POCT JOHN-14 Urine Drug Screen (06/07/2025 [...] AM EST . Internal Pass Control Lot# [id number] Exp: 04-11-26 us [facility] POINT OF CARE TEST ENTER/EDIT OR DERABLES Final Result * Insulin (06/07/2025 9:57 AM EST) Insulin 3 2 - 29 uU/mL [facility] Comment:This test was perfor med using the Jean chemiluminescentmethod. Values obtained from different assay methods cannot beused interchangeably. This insulin assay shows a possiblecross-reactivity with antibodies generated against insulin(immunoreactive insulin and some patients treated withbovine or porcine insulin). Insulin levels may be measuredlower in patients with insulin autoimmune syndrome orfamilial high pro-insulinemia. Blood Venous blood specimen / Unknown 06/07/2025 9:57 AM EST 06/07/2025 1:58 PM EST Nandini Laurent MD LAB BLOOD ORDERABLES Final Re sult [facility] [address] [place] [phone] * Hemoglobin A1c (06/07/2025 9:57 AM EST) Hemoglobin A1c 5.4 <6.0 % [facility] Comment:Hemoglobin A1C Refer ence Range Adults: 4.8 - 6.0 % Non diabetic: < 6.0 % Goal: < 7.0 %Additional Action Suggested: > 8.0 %Note: Hemoglobin A1c results are invalid for patients with abnormal amounts of HbF. Blood transfusions may impact the HbA1c concentration in the patient sample. Estimated Average Glucose 108 mg/dL [facility] Comment:eAG = Estimated ave rage glucose which is %A1C expressed asaverage glucose, using the formula of the Q7W-DlhuiepVvoruxr Glucose study (ADAG), Diabetes Care, Vol.31,#8,Feb. 2007 Blood Venous blood specimen / Unknown 06/07/2025 9:57 AM EST 06/07/2025 1:58 PM EST Nandini Laurent MD LAB BLOOD ORDERABLES Final Re sult [facility] [address] [place] [phone] * POCT INR (04/10/2025 2:35 PM EDT) INR 2.6 QC Media Lot # [id number] Lot# Expiration Date ,026 Blood Capillary blood specimen / Unknown 04/10/2025 2:35 PM EDT Result [facility] Kasey Taylor ANP POINT OF CARE TEST ENTER/EDIT OR DERABLES Final Result * Hm Pap Smear (04/15/2022) Pap Negative for intraephithelial lesion or malignancy Negative for intraephithelial lesion or malignancy, Other HPV Undetected Result [facility] Guzman Provider HEALTH MAINTENANCE Final Result * HEPATITIS C AB W/REFL TO HCV RNA, QN, PCR (06/14/2021 2:35 PM EST) HEPATITIS C ANTIBODY NON-REACT FLOR NON-REACT FLOR [facility] INDEX 0.01 <1.00 [facility] Comment: HCV antibody was non-reactive. There is no laboratory evidence of HCV infection. In most cases, no further action is required. However, if recent HCV exposure is suspected, a test for HCV RNA (test code 23437) is suggested. For additional information please refer to http://education.[employer]/faq/DVC57v9 (This link is being provided for informational/ educational purposes only.) 06/14/2021 2:35 PM EST us Kasey Taylor ANP HISTORICAL/NON ORDERABLE LABS Fi nal Result Performing Organization Address [facility] de Phone Number [facility] [address] * HIV 1/2 ANTIGEN/ANTIBODY,FOURTH GENERATION W/RFL (06/14/2021 2:35 PM EST) Pathologist [facility] HIV-1/2 ANTIGEN AND ANTIBODIES, 4TH GENERATION W/ REFLEX NON-REACT FLOR NON-REACT FLOR [facility] Comment: HIV-1 antigen and HIV-1/HIV-2 [...] purpose. For additional information please refer to http://education.[employer]/faq/ZNY569 (This link is being provided for informational/ educational purposes only.) The performance of this assay has not been clinically validated in patients less than 2 years old. 06/14/2021 2:35 PM EST Kasey Taylor ANP LAB BLOOD ORDERABLES Final Resul t Performing Organization Address [facility] Phone Number [facility] [address] * (ABNORMAL) LIPID PANEL, STANDARD (06/14/2021 2:35 PM EST) [facility] Chol/HDLC Ratio 3.6 <5.0 (calc) [facility] Cholesterol, Total 150 <200 mg/dL [facility] HDL Cholesterol 42(L) > OR = 50 mg/dL [facility] LDL Cholesterol 86 mg/dL (calc) [facility] Comment: Reference range: <100 Desirable range <100 mg/dL for primary prevention; <70 mg/dL for patients with CHD or diabetic patients with > or = 2 CHD risk factors. LDL-C is now calculated using the Pranav-Hurtado calculation, which is a validated novel method providing better accuracy than the Friedewald equation in the estimation of LDL-C. Pranav SS et al. XIMENA. 2013;310(19): 0954-9985 (http://education.[employer]/faq/SIW099) Non-HDL Cholesterol 108 <130 mg/dL (calc) [facility] Comment: For patients with diabetes plus 1 major ASCVD risk factor, treating to a non-HDL-C goal of <100 mg/dL (LDL-C of <70 mg/dL) is considered a therapeutic option. Triglycerides 123 <150 mg/dL [facility] 06/14/2021 2:35 PM EST [facility] LAB BLOOD ORDERABLES Final Resul t [facility] [address] * Mammography Report 1 (10/03/2020 1:30 PM EDT) Anatomical Region Laterality Modality Breast Bilateral Mammography 10/03/2020 1:30 PM EDT Narrative 10/03/2020 7:09 PM EDT Refer to the Notes tab for result details [facility] Procedure: Mammography Report 1 Procedure Note Provider, MD Guzman - 09/27/2022 Refer to the Notes tab for result details [facility] Procedure: Mammography Report 1 Morteza Salter [employer] IMG BI PROCEDURES Final Res ult from Last 3 Months or Most Recently Relevant to Health Maintenance Insurance [employer] C3 Care Teams Soft Mud Molder Relationship Specialty Start Date End Date Kasey Taylor ANP [address] [place] [phone] PCP - General Family Medicine 02/27/21 Ran Gallegos MD [address] [place] [phone] Cardiology 06/17/24
== END 2025-06-23 06:35 | disposition home or self-care (01) ==
LOC: HO.HOSX 06:34
PROVIDERS: Visit Provider Physician Assistant
DX: M70.61 Trochanteric bursitis, right hip (principal); M70.62 Trochanteric bursitis, left hip; Z79.01 Long term (current) use of anticoagulants
CPT/HCPCS: 20610; 72170; 99212; J0665; J1100; J2003

== ENCOUNTER 2025-06-23 12:25 | Outpatient (AMB) | payer MEDICAID, SELFPAY ==
--- NOTE | 2025-06-23 12:42 | MHC.OFFVIS ---
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 Patient referred by [facility], per note patient was seen at walk in clinic, referral was placed for orthopedic to considerate cortisone injections for possible trochanterioric bursitis. Today patient reports constant pain is located at the lateral side of hip and her buttocks area. Complaints of numbness in her leg. She attended PT however this provided no relief. Denies injury. Hx of sciatica. Allergies No Known Allergies (No Known Allergies*) Allergy (Verified 06/23/25 12:53) Medication List - Last Reconciled 06/23/25 by Carlos Ramirez PA-C albuterol sulfate 90 mcg/actuation (Ventolin HFA) 2 puffs inhalation Q4-6H PRN albuterol sulfate mg inhalation Q6H PRN aspirin (Adult Aspirin Regimen) 81 mg PO DAILY diclofenac sodium 1% 4 grams topical BID dicyclomine 10 mg PO QID fluticasone propionate 220 mcg/actuation (Flovent HFA) 1 puff inhalation BID linaclotide (Linzess) 145 mcg PO QAM magnesium oxide 400 mg PO BID methylcellulose (laxative) (Fiber Therapy (methylcellulose)) 1,000 mg (2 x 500 mg) PO DAILY naloxone 4 mg/actuation intranasal pregabalin 50 mg PO TID simethicone (Gas Relief Ultra Strength) 180 mg PO QID tramadol 50 mg PO TID PRN warfarin 5 mg PO DAILY zolpidem 10 mg PO BEDTIME PRN HPI Comments Details: History of Present Illness The patient is a 44 year old female presenting for evaluation of bilateral hip pain. She has been experiencing pain in both hips for approximately one year, which is exacerbated by activity, and she reports screaming pain even with coughing. Her sleep is affected as she cannot lie on her side due to the pain. In addition to her hip pain, she complains of burning low back pain and numbness down her right leg. She describes a sensation of the right leg feeling sleepy or tired. 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 She previously completed a course of physical therapy for her symptoms. The patient takes warfarin, which prohibits the use of oral anti-inflammatory medications. Recent hip x-rays did not show severe arthritis and the joint space is well-preserved. She denies any history of diabetes. Social History - Employment: The patient is employed in a role that requires standing and physical activity. [facility] Medical History Depression Migraine Irritable bowel syndrome with both constipation and diarrhea Surgical History Hx of cholecystectomy Mechanical heart valve present H/O heart surgery History of colonoscopy Family History Father No problems noted. Mother No problems noted. Social History Household Members: Children Alcohol intake: never Cigarettes Per Day: 4 Current occupational status: unemployed Current occupation: applying for disability Female Reproductive History Menstrual Age of Menarche: 11 Review of Systems Narrative Review of Systems - Musculoskeletal: Reports bilateral hip pain for one year, worse with activity. Reports burning low back pain. - Neurological: Reports numbness down the right leg and a sensation that the leg is sleepy or tired. Reports a history of stroke with residual left-sided weakness. - Constitutional: Denies diabetes. Physical Exam Exam Exam: Physical Exam - Musculoskeletal: On examination of the bilateral hips, tenderness to palpation is present over the greater trochanteric area. Pain is reproduced with resisted abduction and passive hip rotation. Lower extremity motor strength was assessed. Office Procedures AMB Joint Injection/Aspiration Joint Injection/Aspiration Primary Site: Right Trochanteric Bursa Secondary Site: Left Trochanteric Bursa Prep: site was prepped using aseptic technique, ethochloride spray was applied and injection warnings given Injected: 40 mg of, Decadron, with 3 mL of, 1% plain Lidocaine and 0.25% Bupivacaine Procedure: The patient tolerated the procedure well and there was some relief with the local anesthesia Coding 20539 - Glenohumeral/Tronchanteric Bursa/Intraarticular Procedure code (CPT) selection complete Assessment & Plan Assessment & Plan (1) Greater trochanteric bursitis of both hips: Code(s): M70.61 - Trochanteric bursitis, right hip; M70.62 - Trochanteric bursitis, left hip Category: Medical Plan Plan The patient's chronic bilateral hip pain is assessed to be secondary to trochanteric bursitis, given the physical exam findings of tenderness over the lateral hip and unremarkable x-rays. Her inflammation is significant enough that physical therapy is currently exacerbating her pain. The plan is to proceed with bilateral greater trochanteric cortisone injections today to reduce inflammation and pain. This is intended to facilitate more effective participation in physical therapy aimed at strengthening and improving mobility. Oral anti-inflammatory medications are not an option as she is on warfarin. Consent The rationale for bilateral hip cortisone injections was discussed with the patient. It was explained that the steroid injection is intended to reduce inflammation and pain, which would then allow her to participate more effectively in physical therapy. The patient expressed understanding and a desire to proceed with the injections to alleviate her pain. Patient was informed and verbally consented to the use of an ambient scribe for clinic note documentation during this visit. Orders: Orders XR pelvis 1-2V Today M25.559 - Pain in unspecified hip Coding Level of Care Code New Pt Level 3 (77043) Add On Problem Visit Only Diagnoses Greater trochanteric bursitis of both hips M70.61; M70.62 CPT Codes Coding - Joint 7: 63935 - Glenohumeral/Tronchanteric Bursa/Intraarticular ([id number])
== END 2025-06-23 13:39 | disposition home or self-care (01) ==
LOC: HO.HOS 12:26
PROVIDERS: Visit Provider Physician Assistant
DX: M70.61 Trochanteric bursitis, right hip (principal); M70.62 Trochanteric bursitis, left hip
CPT/HCPCS: 20610; 99203

== ENCOUNTER → 2025-06-23 12:28 | Outpatient (BNV) | payer MEDICAID, SELFPAY | PROVIDERS: Visit Provider Radiology Diagnostic Radiology | DX: M25.551 Pain in right hip (principal); M25.552 Pain in left hip | CPT/HCPCS: 72170 ==